=== PATIENT | female | born 1935 | race Caucasian/White ===

== ENCOUNTER 2017-04-16 11:07 | Inpatient (IN) | payer MEDICARE, OTHER ==
[~2017-04-16] VITALS: Ht 142.2 cm; Wt 59.3 kg
[~2017-04-16 11:07] MED LIST: ATELVIA; ERGO50007 PO; MELO-110 PO; OMEP20CA16 PO; SMV40T PO; apap/codeine
[2017-04-16] MEDS ORDERED: SOD CHLORIDE 0.9% 500 ML IV STA (11:15)
[2017-04-16] MEDS ORDERED: morphine 2 MG INJ IV ONE (11:30)
[2017-04-16] MEDS ORDERED: ONDANSETRON 4 MG INJ IV ONE (11:30)
--- NOTE | 2017-04-16 11:40 | ERA ---
ER Documentation Chief Complaint Date/Time DATE: 04/16/17 TIME: 11:37 Chief Complaint LEFT HIP PAIN FROM A GROUND LEVEL FALL WITH NO OBVIOUS DEFORMITY . HPI 81-year-old female, extremely pleasant who presents with left hip pain status post ground-level fall just prior to arrival. She states that she was trying to get around another individual and tripped on uneven pavement. She fell onto her left hip. She describes left hip and groin pain that is moderate, throbbing , worse with any movement of her lower extremity. She denies any head trauma or loss of consciousness, no neck pain. She denies any prodrome of chest pain or shortness of breath. Pain is described as moderate currently. ROS All systems reviewed and are negative except as per history of present illness. Medications Home Meds Reported Medications Esomeprazole Mag Trihydrate (Nexium) 40 Mg Capsule.dr, 40 MG PO DAILY, #30 CAP 04/16/17 Cyclosporine (RESTASIS) 1 Each Droperette, 1 DROP BOTH EYES Q12, #1 BOX 04/16/17 Risedronate* (Actonel*) 35 Mg Tablet, 35 MG PO Q7D, #4 TAB 04/16/17 Metoprolol Tartrate* (Lopressor*) 50 Mg Tab, 50 MG PO DAILY Y for ELEVATED BLOOD PRESSURE, #60 TAB 04/16/17 Ergocalciferol (Vitamin D) 50,000 Unit Capsule, 18885 UNIT PO weekly 07/01/12 Simvastatin (Simvastatin) 40 Mg Tablet, 40 MG PO DAILY 07/01/12 Discontinued Reported Medications [atelvia] No Conflict Check, 35 MG weekly 07/01/12 Meloxicam* (Mobic*) 15 Mg Tablet, 15 MG PO DAILY 07/01/12 [apap/codeine] No Conflict Check, 300 300/30 q 8hr prn 07/01/12 Omeprazole* (Omeprazole*) 20 Mg Capsule.dr, 40 MG PO DAILY 07/01/12 Allergies Allergies: Coded Allergies: No Known Allergy (Unverified , 04/16/17) PMhx/Soc History of Surgery: No Anesthesia Reaction: No Hx Neurological Disorder: No Hx Respiratory Disorders: No Hx Cardiac Disorders: No Hx Psychiatric Problems: No Hx Miscellaneous Medical Probl: No Hx Alcohol Use: No Hx Substance Use: No Hx Tobacco Use: No FmHx Family History: No diabetes Physical Exam Vitals Vital Signs Date Time Temp Pulse Resp B/P Pulse Ox O2 Delivery O2 Flow Rate FiO2 04/16/17 11:53 81 18 135/94 96 Room Air 04/16/17 11:15 98.1 81 20 134/91 98 Physical Exam Airway is intact Bilateral breath sounds Strong distal pulses No obvious deficits General: Well developed, well nourished, no acute distress Head: Normocephalic, atraumatic Eyes: Pupils equally reactive, EOM intact ENT: Moist mucous membranes Neck: Supple, no lymphadenopathy, No midline tenderness, deformities, step-offs to the cervical spine, full active and passive range of motion without midline pain. Respiratory: Lungs clear bilaterally, no distress, no chest wall tenderness, no crepitus Cardiovascular: RRR, no murmurs, rubs, or gallops Abdominal: Soft, non-tender, non-distended, no peritoneal signs, pelvis is stable : Deferred MSK: No edema, no unilateral swelling, 5/5 strength, no midline tenderness deformities or step-offs to the thoracolumbar spine. The patient has soft tissue tenderness along the left hip, she is holding the hip in slight flexion and has pain with internal and external rotation. 2+ dorsalis pedis and posterior tibial pulses. Neurologic: Alert and oriented, moving all extremities, normal speech, no focal weakness, no cerebellar signs Skin: No ecchymoses or bruising to the chest or abdomen Psych: Normal mood Result Diagram: 04/16/17 1120 04/16/17 1120 Results 24 hrs Laboratory Tests Test 04/16/17 11:20 White Blood Count 8.110^3/ul Red Blood Count 3.5510^6/ul Hemoglobin 11.5g/dl Hematocrit 33.4% Mean Corpuscular Volume 94.1fl Mean Corpuscular Hemoglobin 32.4pg Mean Corpuscular Hemoglobin Concent 34.4g/dl Red Cell Distribution Width 15.7% Platelet Count 47056^3/UL Mean Platelet Volume 11.3fl Neutrophils % 67.6% Lymphocytes % 22.4% Monocytes % 5.9% Eosinophils % 2.1% Basophils % 0.6% Nucleated Red Blood Cells % 0.0/100WBC Neutrophils # 5.510^3/ul Lymphocytes # 1.810^3/ul Monocytes # 0.510^3/ul Eosinophils # 0.210^3/ul Basophils # 0.110^3/ul Nucleated Red Blood Cells # 0.010^3/ul Prothrombin Time 13.3Sec Prothrombin Time Ratio 1.0 INR International Normalized Ratio 1.01 Activated Partial Thromboplast Time 30.1Sec Sodium Level 145mmol/L Potassium Level 3.6mmol/L Chloride Level 104mmol/L Carbon Dioxide Level 25mmol/L Anion Gap 20 Blood Urea Nitrogen 15mg/dl Creatinine 0.65mg/dl Glucose Level 116mg/dl Calcium Level 9.5mg/dl Current Medications Medications (Trade) Dose Ordered Sig/Juan Carlos Route PRN Reason Start Time Stop Time Status Last Admin Dose Admin Sodium Chloride (NS) 500 ml @ 500 mls/hr Q1H STAT IV 04/16/17 11:15 04/16/17 12:14 DC 04/16/17 11:47 Morphine Sulfate (morphine) 2 mg ONCE ONCE IV 04/16/17 11:30 04/16/17 11:31 DC 04/16/17 11:47 Ondansetron HCl (Zofran Inj) 4 mg ONCE ONCE IV 04/16/17 11:30 04/16/17 11:31 DC 04/16/17 11:47 Procedures/MDM EKG, MONITORS, & DIAGNOSTIC IMAGING: EKG: I reviewed and interpreted a 12-lead EKG. Rhythm: Normal sinus rhythm Ectopy: None Intervals: No abnormalities ST segments: No elevations or depressions T waves: No contiguous inversions Chest x-ray: I reviewed and interpreted a 1 view of the chest Mediastinum: No enlargement Cardiac silhouette: No cardiomegaly Airspace: Clear lung frye bilaterally without evidence of pneumothorax Bones: No evidence of fracture X-ray pelvis: X-ray pelvis: I reviewed and interpreted 1 view of the pelvis, there is evidence of a left femoral neck fracture, no pelvic ring fractures, no foreign bodies. X-ray left hip: I reviewed and interpreted multiple views of the x-ray Bones: Comminuted left femoral neck fracture Soft tissue: No evidence of foreign body LAB INTERPRETATION: No acute process MEDICAL DECISION MAKING: The patient has pain to the left hip after blunt trauma. Given her exam with pain with internal and external rotation there is a strong concern for closed left hip fracture. She did not hit her head or lose consciousness, she gives a good history, no neck pain. The patient does not meet high-risk criteria and based on NEXUS cervical spine criteria there is no indication for cervical spine imaging at this time. No indication for CT imaging of the head. She did not have a prodrome of chest pain or shortness of breath, low concern for arrhythmia, PE etc. The patient will benefit from auditory testing, pain control, diagnostic imaging and low threshold for hospitalization. ER COURSE: The patient was given pain medication. X-ray imaging confirms closed left femoral neck fracture. Patient will require hospitalization, pain control and orthopedic surgery consultation. Orthopedic surgeon notified. I kept the patient and/or family informed of laboratory and diagnostic imaging results throughout the emergency room course. DISPOSITION PLAN: Medical surgical admission for management of close left femoral neck fracture CONSULTATION: Accepting care team and consultations: I discussed the current laboratory data, diagnostic imaging and emergency care provided. Admitting team: Dr. Mcrae Admitting team indication: Insurance directed Consulting services: Dr. Gonsalez, orthopedic surgeon Departure Diagnosis: Primary Impression: Closed fracture of neck of left femur Qualified Code: S72.002A - Closed fracture of neck of left femur, initial encounter Condition: Stable ARCADIO CARLOS MD Apr 16, 2017 11:40
[2017-04-16 11:43] LABS: BASOPHIL # 0.1 10^3/ul (0.0-0.1); BASOPHILS % 0.6 % (0.0-2.0); EOSINOPHILS # 0.2 10^3/ul (0.0-0.5); EOSINOPHILS % 2.1 % (0.0-7.0); HEMATOCRIT 33.4 % (37.0-47.0); HEMOGLOBIN 11.5 g/dl (12.0-16.0); LYMPHOCYTES # 1.8 10^3/ul (0.8-2.9); LYMPHOCYTES % 22.4 % (15.0-51.0); MEAN CORPUSCULAR HEMOGLOBIN 32.4 pg (29.0-33.0); MEAN CORPUSCULAR HGB CONC 34.4 g/dl (32.0-37.0); MEAN CORPUSCULAR VOLUME 94.1 fl (82.0-101.0); MEAN PLATELET VOLUME 11.3 fl (7.4-10.4); MONOCYTE # 0.5 10^3/ul (0.3-0.9); MONOCYTES % 5.9 % (0.0-11.0); NEUTROPHIL # 5.5 10^3/ul (1.6-7.5); NEUTROPHILS % 67.6 % (39.0-77.0); PLATELET COUNT 404 10^3/UL (140-415); RED BLOOD COUNT 3.55 10^6/ul (4.20-5.40); RED CELL DISTRIBUTION WIDTH 15.7 % (11.5-14.5); WHITE BLOOD COUNT 8.1 10^3/ul (4.8-10.8)
[2017-04-16 11:51] LABS: INR 1.01; PROTIME 13.3 Sec (12.2-14.2)
[2017-04-16 11:52] LABS: PARTIAL THROMBOPLASTIN TIME 30.1 Sec (25.0-35.0)
[2017-04-16 11:57] LABS: CALCIUM 9.5 mg/dl (8.4-10.2); CREATININE 0.65 mg/dl (0.44-1.00); POTASSIUM 3.6 mmol/L (3.5-5.1)
[2017-04-16] MEDS ORDERED: METO-429 PO (12:13)
[2017-04-16 12:14] LABS: ADD SCAN DIFF NO
[2017-04-16] MEDS ORDERED: CYCL1DRO BOTH EYES (12:14)
[2017-04-16] MEDS ORDERED: ACT35 PO (12:14)
--- NOTE | 2017-04-16 12:16 | RADRPT ---
PROCEDURE: XR Chest. CLINICAL INDICATION: Trauma, pain. TECHNIQUE: Single frontal chest x-ray. COMPARISON: None available. FINDINGS: The cardiomediastinal silhouette is unremarkable. Aortic atherosclerotic vascular calcifications are identified. No pneumothorax, pleural effusion or consolidation is seen. There are multilevel degenerative changes of thoracic spine with decreased disk spaces and osteophyt osis. IMPRESSION: 1. No acute cardiopulmonary abnormality. 2. Aortic atherosclerosis. RPTAT: HFN .Nathan Locke MD, Date Time Electronically viewed and signed by .Nathan Locke MD, on 04/16/2017 12:16 .N/
--- NOTE | 2017-04-16 12:18 | RADRPT ---
PROCEDURE: XR Pelvis. CLINICAL INDICATION: Pain. Trauma. TECHNIQUE: Single AP view of the pelvis. COMPARISON: No prior studies are available for comparison. FINDINGS: Acute displaced fracture of left neck of femur is noted. No radiopaque foreign body is identified. The osseous mineralization is normal. The sacroiliac joints, as visualized, are grossly unremarkable . Mild degenerative changes of bilateral hip joints. IMPRESSION: 1. Acute displaced fracture of left neck of femur. 2. Mild degenerative changes of bilateral hip joints. RPTAT: QQ .Nathan Locke MD, MD Date Time Electronically viewed and signed by .Nathan Locke MD, on 04/16/2017 12:18 .N/
--- NOTE | 2017-04-16 12:20 | RADRPT ---
PROCEDURE: XR Hip. CLINICAL INDICATION: Left hip pain TECHNIQUE: AP and frog lateral views of the left hip were performed. COMPARISON: None. FINDINGS: Acute moderately displaced fracture of left neck of femur is noted with superior displacement of the distal fracture fragment with overlying surrounding soft tissue swelling. No radiopaque foreign licha dy is identified. IMPRESSION: 1. Acute moderately displaced fracture of left neck of femur with overlying surrounding soft tissue swelling. RPTAT: QQ .Nathan Locke MD, MD Date Time Electronically viewed and signed by .Nathan Locke MD, on 04/16/2017 12:20 .N/
[2017-04-16] MEDS ORDERED: ESOM40CA PO (12:23)
[2017-04-16] MEDS ORDERED: ONDANSETRON 4 MG INJ IV PRN ×2 (13:00→18:00)
[2017-04-16] MEDS ORDERED: ACETAMINOPHEN 325 MG TAB PO PRN (13:00)
[2017-04-16 16:31] VITALS: TEMP 98.5
[2017-04-16] MEDS ORDERED: DOCUSATE SODIUM 100 MG CAP PO PRN (18:00)
--- NOTE | 2017-04-16 18:09 | HP ---
Date/Time of Note Date/Time of Note DATE: 04/16/17 TIME: 17:51 Assessment/Plan VTE Prophylaxis VTE Prophylaxis Intervention: LMWH Assessment/Plan Assessment/Plan 81 yo F s/p accidental ground level fall with 1. Acute L Hip fracture 2. Chronic HTN: fairly good control 3. Osteoporosis 4. Dyslipidemia 5. GERD PLAN: admit / pain control / supportive care / Bedrest Spoke with also, Dr. Gonsalez plans to do surgery to left hip tomorrow. He wants patient cleared for surgery for possible by then. Cardiology consult for cardiac clearance based on patient's age and chronic morbidities; will also order 2D echo and ACS rule out. Continue all other home meds PPI and Lovenox for prophylaxis Further interventions per clinical course HPI/ROS Admit Date/Time Admit Date/Time Apr 16, 2017 at 12:42 Hx of Present Illness This 89-year-old female who sustained a ground-level fall without loss of consciousness or dizziness and fell onto her left hip. She came to the ER brought in by ambulance complaining of left hip pain she was found to have a left hip fracture on x-ray. She is being admitted for further management. She denies chest pain, denies palpitations prior to fall. Denies headaches, vision changes, extremity weakness. Denies fever dysuria or hematuria. ROS 12 point review if systems was done and pertinent findings are as noted. PMH/Family/Social Past Medical History 1. Osteoporosis on Actonel 2. High blood pressure 3. Dyslipidemia 4. GERD Social History Smoking Status: Never smoker Exam/Review of Systems Vital Signs Vitals Vital Signs Date Time Temp Pulse Resp B/P Pulse Ox O2 Delivery O2 Flow Rate FiO2 04/16/17 16:31 98.5 84 16 148/62 99 Room Air Exam Exam Constitutional: alert, oriented Head: atraumatic, normocephalic Neck: non-tender, supple Respiratory: clear to auscultation Cardiovascular: regular rate and rhythm Gastrointestinal: nl liver, spleen, non-tender, soft Extremities: normal pulses, No edema, no unilateral swelling, Tender L hip Labs Result Diagram: 04/16/17 1120 04/16/17 1120 Procedures Procedures Laboratory Tests Test 04/16/17 11:20 White Blood Count 8.110^3/ul Red Blood Count 3.5510^6/ul Hemoglobin 11.5g/dl Hematocrit 33.4% Mean Corpuscular Volume 94.1fl Mean Corpuscular Hemoglobin 32.4pg Mean Corpuscular Hemoglobin Concent 34.4g/dl Red Cell Distribution Width 15.7% Platelet Count 69697^3/UL Mean Platelet Volume 11.3fl Neutrophils % 67.6% Lymphocytes % 22.4% Monocytes % 5.9% Eosinophils % 2.1% Basophils % 0.6% Nucleated Red Blood Cells % 0.0/100WBC Neutrophils # 5.510^3/ul Lymphocytes # 1.810^3/ul Monocytes # 0.510^3/ul Eosinophils # 0.210^3/ul Basophils # 0.110^3/ul Nucleated Red Blood Cells # 0.010^3/ul Prothrombin Time 13.3Sec Prothrombin Time Ratio 1.0 INR International Normalized Ratio 1.01 Activated Partial Thromboplast Time 30.1Sec Sodium Level 145mmol/L Potassium Level 3.6mmol/L Chloride Level 104mmol/L Carbon Dioxide Level 25mmol/L Anion Gap 20 Blood Urea Nitrogen 15mg/dl Creatinine 0.65mg/dl Glucose Level 116mg/dl Calcium Level 9.5mg/dl Current Medications Medications (Trade) Dose Ordered Sig/Juan Carlos Route PRN Reason Start Time Stop Time Status Last Admin Dose Admin Sodium Chloride (NS) 500 ml @ 500 mls/hr Q1H STAT IV 04/16/17 11:15 04/16/17 12:14 DC 04/16/17 11:47 500 MLS/HR Morphine Sulfate (morphine) 2 mg ONCE ONCE IV 04/16/17 11:30 04/16/17 11:31 DC 04/16/17 11:47 2 MG Ondansetron HCl (Zofran Inj) 4 mg ONCE ONCE IV 04/16/17 11:30 04/16/17 11:31 DC 04/16/17 11:47 4 MG Ondansetron HCl (Zofran Inj) 4 mg BRIDGE ORDER PRN IV NAUSEA AND/OR VOMITING 04/16/17 13:00 04/17/17 12:59 Acetaminophen (Tylenol Tab) 650 mg ER BRIDGE PRN PO MILD PAIN/FEVER 04/16/17 13:00 04/17/17 12:59 PROCEDURE: XR Chest. CLINICAL INDICATION: Trauma, pain. TECHNIQUE: Single frontal chest x-ray. COMPARISON: None available. FINDINGS: The cardiomediastinal silhouette is unremarkable. Aortic atherosclerotic vascular calcifications are identified. No pneumothorax, pleural effusion or consolidation is seen. There are multilevel degenerative changes of thoracic spine with decreased disk spaces and osteophytosis. IMPRESSION: 1. No acute cardiopulmonary abnormality. 2. Aortic atherosclerosis. RPTAT: HFN .Nathan Locke MD, MD Date Time Electronically viewed and signed by .Nathan Locke MD, MD on 04/16/2017 12: 16 .N/ CC: ARCADIO CARLOS MD PROCEDURE: XR Hip. CLINICAL INDICATION: Left hip pain TECHNIQUE: AP and frog lateral views of the left hip were performed. COMPARISON: None. FINDINGS: Acute moderately displaced fracture of left neck of femur is noted with superior displacement of the distal fracture fragment with overlying surrounding soft tissue swelling. No radiopaque foreign body is identified. IMPRESSION: 1. Acute moderately displaced fracture of left neck of femur with overlying surrounding soft tissue swelling. RPTAT: QQ .Nathan Locke MD, MD Date Time Electronically viewed and signed by .Nathan Locke MD, MD on 04/16/2017 12: 20 .N/ CC: ARCADIO CARLOS MD PROCEDURE: XR Pelvis. CLINICAL INDICATION: Pain. Trauma. TECHNIQUE: Single AP view of the pelvis. COMPARISON: No prior studies are available for comparison. FINDINGS: Acute displaced fracture of left neck of femur is noted. No radiopaque foreign body is identified. The osseous mineralization is normal. The sacroiliac joints , as visualized, are grossly unremarkable. Mild degenerative changes of bilateral hip joints. IMPRESSION: 1. Acute displaced fracture of left neck of femur. 2. Mild degenerative changes of bilateral hip joints. RPTAT: QQ .Nathan Locke MD, MD Date Time Electronically viewed and signed by .Nathan Locke MD, MD on 04/16/2017 12: 18 .N/ CC: ARCADIO CARLOS MD ABE, BOLATITO M. Jun 30, 2017 18:01
[2017-04-16 19:20] VITALS: BP 126/60; RESP 18
[2017-04-16 20:00] VITALS: BP 141/87; PULSE 78; RESP 18
[2017-04-16] MEDS: morphine 2 MG INJ IV PRN (20:33)
[2017-04-16] MEDS: ATORVASTATIN 20 MG TAB PO SCH (22:03)
[2017-04-16] MEDS: CYCLOSPORINE 0.05% OPH DROPERETTE BOTH EYES SCH (22:04)
[2017-04-16] MEDS: ENOXAPARIN 40 MG/0.4 ML SYG SC SCH (22:05)
[2017-04-17 00:06] LABS: CK-MB 1.18 ng/ml (0.0-2.4); TROPONIN-I 0.035 ng/ml (0.00-0.12)
[2017-04-17 02:06] VITALS: BP 113/55; PULSE 71; RESP 16
[2017-04-17 02:07] VITALS: Ht 142.2 cm; Wt 59.3 kg
[2017-04-17] MEDS: HYDROCODONE/APAP (5/325) TAB PO PRN ×3 (02:15→22:00)
[2017-04-17] MEDS: SOD CHLORIDE 0.9% 1,000 ML IV SCH (03:02)
[2017-04-17 05:09] LABS: BASOPHIL # 0.1 10^3/ul (0.0-0.1); BASOPHILS % 0.6 % (0.0-2.0); EOSINOPHILS # 0.3 10^3/ul (0.0-0.5); HEMATOCRIT 30.4 % (37.0-47.0); HEMOGLOBIN 9.9 g/dl (12.0-16.0); LYMPHOCYTES # 1.5 10^3/ul (0.8-2.9); LYMPHOCYTES % 17.8 % (15.0-51.0); MEAN CORPUSCULAR HEMOGLOBIN 30.9 pg (29.0-33.0); MEAN CORPUSCULAR HGB CONC 32.6 g/dl (32.0-37.0); MEAN PLATELET VOLUME 11.1 fl (7.4-10.4); MONOCYTE # 0.9 10^3/ul (0.3-0.9); MONOCYTES % 10.9 % (0.0-11.0); NEUTROPHIL # 5.7 10^3/ul (1.6-7.5); NEUTROPHILS % 67.1 % (39.0-77.0); PLATELET COUNT 302 10^3/UL (140-415); RED CELL DISTRIBUTION WIDTH 15.9 % (11.5-14.5); WHITE BLOOD COUNT 8.4 10^3/ul (4.8-10.8)
[2017-04-17 05:17] LABS: ADD SCAN DIFF NO
[2017-04-17 05:27] LABS: INR 1.23; PROTIME 15.6 Sec (12.2-14.2); PT RATIO 1.2
[2017-04-17 05:28] LABS: PARTIAL THROMBOPLASTIN TIME 42.1 Sec (25.0-35.0)
[2017-04-17 05:32] LABS: ALBUMIN 3.4 g/dl (3.3-4.9); BILIRUBIN,INDIRECT 0.6 mg/dl (0-1.1); BILIRUBIN,TOTAL 0.6 mg/dl (0.2-1.3); CALCIUM 8.9 mg/dl (8.4-10.2); CHOL/HDL RATIO 4.7 RATIO; CREATININE 0.66 mg/dl (0.44-1.00); MAGNESIUM 1.9 mg/dl (1.7-2.5); POTASSIUM 3.7 mmol/L (3.5-5.1); TOTAL PROTEIN 4.9 g/dl (6.1-8.1)
[2017-04-17] MEDS: PANTOPRAZOLE (EC) 40 MG TAB PO SCH ×2 (05:37→09:26)
[2017-04-17 05:41] LABS: CK-MB 0.92 ng/ml (0.0-2.4); TROPONIN-I 0.024 ng/ml (0.00-0.12)
[2017-04-17 05:59] LABS: THYROID STIMULATING HORMONE 4.37 MIU/L (0.465-4.680)
[2017-04-17] MEDS: morphine 2 MG INJ IV PRN (06:18)
[2017-04-17 08:03] VITALS: BP 115/86; RESP 20
[2017-04-17] MEDS: POLYETHYLENE GLYCOL 17 GM PACKET PO SCH (09:00)
[2017-04-17] MEDS: CYCLOSPORINE 0.05% OPH DROPERETTE BOTH EYES SCH ×2 (09:24→20:05)
[2017-04-17] MEDS: METOPROLOL 25 MG TAB PO SCH (09:25)
[2017-04-17] MEDS: ENOXAPARIN 40 MG/0.4 ML SYG SC SCH (09:34)
--- NOTE | 2017-04-17 10:00 | PN ---
Date/Time of Note Date/Time of Note DATE: 04/17/17 TIME: 09:57 Assessment/Plan VTE Prophylaxis VTE Prophylaxis Intervention: LMWH Lines/Catheters IV Catheter Type (from Nrsg): Peripheral IV Urinary Cath still in place: Yes Reason Cath still needed: other (indicate) Assessment/Plan Assessment/Plan 81 yo F s/p accidental ground level fall with 1. Acute L Hip fracture 2. Chronic HTN: fairly good control 3. Osteoporosis 4. Dyslipidemia 5. GERD 6. Hgb A1C 13: With normal blood sugars / ?error, will repeat PLAN: Continue pain control / supportive care / Bedrest Patient wants a different Orthopedic surgeon than Dr Gonsalez, Spoke with nursing supervisor heading, we will try to get Dr Landrum I explained to patient that finding a different doctor may delay surgery, she verbalized understanding Cardiology consult for cardiac clearance based on patient's age and chronic morbidities still pending Continue all other home meds PPI and Lovenox for prophylaxis Further interventions per clinical course Subjective 24 Hr Interval Summary Free Text/Dictation Patient seen and examined. still in pain L hip Exam/Review of Systems Vital Signs Vitals Vital Signs Date Time Temp Pulse Resp B/P Pulse Ox O2 Delivery O2 Flow Rate FiO2 04/17/17 08:03 98.1 78 20 115/86 94 04/17/17 02:06 Room Air Intake and Output 04/16/17 04/16/17 04/17/17 15:00 23:00 07:00 Intake Total 140 ml Balance 140 ml Exam Constitutional: alert, oriented, obese Head: atraumatic, normocephalic Neck: non-tender, supple Respiratory: clear to auscultation Cardiovascular: regular rate and rhythm Gastrointestinal: nl liver, spleen, non-tender, soft Extremities: normal pulses, No edema, no unilateral swelling, Tender L hip Results Result Diagram: 04/17/17 0450 04/17/17 0450 Results 24 hrs Laboratory Tests Test 04/16/17 11:20 04/16/17 23:10 04/17/17 04:50 White Blood Count 8.1 8.4 Red Blood Count 3.55 L 3.20 L Hemoglobin 11.5 L 9.9 L Hematocrit 33.4 L 30.4 L Mean Corpuscular Volume 94.1 95.0 Mean Corpuscular Hemoglobin 32.4 30.9 Mean Corpuscular Hemoglobin Concent 34.4 32.6 Red Cell Distribution Width 15.7 H 15.9 H Platelet Count 404 302 # Mean Platelet Volume 11.3 H 11.1 H Neutrophils % 67.6 67.1 Lymphocytes % 22.4 17.8 Monocytes % 5.9 10.9 Eosinophils % 2.1 3.0 Basophils % 0.6 0.6 Nucleated Red Blood Cells % 0.0 0.0 Neutrophils # 5.5 5.7 Lymphocytes # 1.8 1.5 Monocytes # 0.5 0.9 Eosinophils # 0.2 0.3 Basophils # 0.1 0.1 Nucleated Red Blood Cells # 0.0 0.0 Prothrombin Time 13.3 15.6 H Prothrombin Time Ratio 1.0 1.2 INR International Normalized Ratio 1.01 1.23 Activated Partial Thromboplast Time 30.1 42.1 H Sodium Level 145 H 143 Potassium Level 3.6 3.7 Chloride Level 104 107 Carbon Dioxide Level 25 26 Anion Gap 20 H 14 Blood Urea Nitrogen 15 15 Creatinine 0.65 0.66 Glucose Level 116 101 Calcium Level 9.5 8.9 Creatine Kinase 66 51 Creatine Kinase Index 1.8 1.8 Creatinine Kinase MB (Mass) 1.18 0.92 Troponin I 0.035 0.024 Hemoglobin A1c 13.7 H Magnesium Level 1.9 Total Bilirubin 0.6 Direct Bilirubin 0.00 Indirect Bilirubin 0.6 Aspartate Amino Transf (AST/SGOT) 14 L Alanine Aminotransferase (ALT/SGPT) 22 Alkaline Phosphatase 47 Total Protein 4.9 L Albumin 3.4 Triglycerides Level 112 Cholesterol Level 134 LDL Cholesterol, Calculated 84 HDL Cholesterol 28 L Cholesterol/HDL Ratio 4.7 Thyroid Stimulating Hormone (TSH) 4.370 Medications Medications Current Medications Cyclosporine (Restasis) 1 drop Q12 BOTH EYES Last administered on 04/17/17 09: 24; Admin Dose 1 DROP; Start 04/16/17 at 21:00 Ergocalciferol (Drisdol) 50,000 unit Q7D PO ; Start 04/18/17 at 09:00 Metoprolol Tartrate (Lopressor) 25 mg DAILY PO Last administered on 04/17/17 09 :25; Admin Dose 25 MG; Start 04/17/17 at 09:00 Risedronate (Actonel) 35 mg Q7D PO ; Start 04/23/17 at 06:00 Pantoprazole (Protonix Tab) 40 mg DAILY@06 PO Last administered on 04/17/17 09: 26; Admin Dose 40 MG; Start 04/17/17 at 06:00 Atorvastatin Calcium (Lipitor) 20 mg DAILY@21 PO Last administered on 22:03; Admin Dose 20 MG; Start 04/16/17 at 21:00 Morphine Sulfate (morphine) 2 mg Q4H PRN IV pain Last administered on 04/17/17 06:18; Admin Dose 2 MG; Start 04/16/17 at 18:00 Ondansetron HCl (Zofran Inj) 4 mg Q6H PRN IV NAUSEA AND/OR VOMITING; Start at 18:00 Acetaminophen/ Hydrocodone Bitart ([place] (5/325)) 1 tab Q6H PRN PO pain Last administered on 04/17/17 02:15; Admin Dose 1 TAB; Start 04/16/17 at 18:00 Docusate Sodium (Colace) 100 mg BID PRN PO CONSTIPATION; Start 04/16/17 at 18: 00 Polyethylene Glycol (Miralax) 8.5 gm DAILY PO ; Start 04/17/17 at 09:00 Enoxaparin Sodium 40 mg 40 mg DAILY SC Last administered on 04/17/17 09:34; Admin Dose 40 MG; Start 04/16/17 at 21:00 Sodium Chloride (NS) 1,000 ml @ 75 mls/hr [id number] IV Last administered on 03:02; Admin Dose 75 MLS/HR; Start 04/17/17 at 03:00 SHANNAN CAN Apr 17, 2017 10:00
--- NOTE | 2017-04-17 16:13 | CONS ---
Date/Time of Note Date/Time of Note DATE: 04/17/17 TIME: 16:08 Assessment/Plan Assessment/Plan Additional Assessment/Plan 1. Pre-op: 81 yo with HTN, RBBB - s/p mech fall - here for pre-op eval for hip fxr repair No hemodynamic instability - BP in goodr sylvia - not in CHF - OK to proceed with surgery without any further re-stratification as unrepaired hip fracture if untreated leads to very high morbidity and mortality. Discussed with family at bedside, agree to proceed. Will review ECHO and optimize pre-op therapy. 2. RBBB - likely chronic, negative troponios - will review ECHO 3. HTN - well Rx now ? incidental 4 GERD - PPI to folllow 5. Pain - con't pain rx as needed Consultation Date/Type/Reason Admit Date/Time Apr 16, 2017 at 12:42 Initial Consult Date 24 HR Interval Summary Free Text/Dictation Cardiology Consult CC: pre-op, RBBB 81 yo with HTN, RBBB - s/p mech fall - here for pre-op eval for hip fxr repair No hemodynamic instability - BP in goodr sylvia - not in CHF - OK to proceed with surgery without any further re-stratification as unrepaired hip fracture if untreated leads to very high morbidity and mortality. Discussed with family at bedside, agree to proceed. Will review ECHO and optimize pre-op therapy. PMH: HTN (mild), RBBB, GERD Soc: no EtOh, no tobacco use All: NKDA MEDS: reviewed Exam/Review of Systems Vital Signs Vitals Vital Signs Date Time Temp Pulse Resp B/P Pulse Ox O2 Delivery O2 Flow Rate FiO2 04/17/17 08:03 98.1 78 20 115/86 94 04/17/17 02:06 Room Air Intake and Output 04/16/17 04/16/17 04/17/17 15:00 23:00 07:00 Intake Total 140 ml Balance 140 ml Exam ROS: No fever, no chills, no nausea, no vomiting, no diarrhea/constipation No recent weight changes No chest pain, no PND, no orthopnea No dizziness, blurred vision No thirst, no heat or cold intolerance General: WN/WD/NAD, AOx 3 HEENT: Unicetric/atraumatic/EOMI (follow commands) NECK: JVD elevated, no thyromegaly Lymph: no lymphadenopathy HEART: regular with no S3, II/ systolic murmur at apex LUNGS: Coarse sounds ABD: soft, NT, ND, +BS : Intact Neuro: non focal SKIN: chronic changes EXT: trace edema Results Result Diagram: 04/17/17 0450 04/17/17 0450 Results 24 hrs Laboratory Tests Test 04/16/17 23:10 04/17/17 04:50 Creatine Kinase 66 51 Creatine Kinase Index 1.8 1.8 Creatinine Kinase MB (Mass) 1.18 0.92 Troponin I 0.035 0.024 White Blood Count 8.4 Red Blood Count 3.20 L Hemoglobin 9.9 L Hematocrit 30.4 L Mean Corpuscular Volume 95.0 Mean Corpuscular Hemoglobin 30.9 Mean Corpuscular Hemoglobin Concent 32.6 Red Cell Distribution Width 15.9 H Platelet Count 302 # Mean Platelet Volume 11.1 H Neutrophils % 67.1 Lymphocytes % 17.8 Monocytes % 10.9 Eosinophils % 3.0 Basophils % 0.6 Nucleated Red Blood Cells % 0.0 Neutrophils # 5.7 Lymphocytes # 1.5 Monocytes # 0.9 Eosinophils # 0.3 Basophils # 0.1 Nucleated Red Blood Cells # 0.0 Prothrombin Time 15.6 H Prothrombin Time Ratio 1.2 INR International Normalized Ratio 1.23 Activated Partial Thromboplast Time 42.1 H Sodium Level 143 Potassium Level 3.7 Chloride Level 107 Carbon Dioxide Level 26 Anion Gap 14 Blood Urea Nitrogen 15 Creatinine 0.66 Glucose Level 101 Hemoglobin A1c 5.4 Calcium Level 8.9 Magnesium Level 1.9 Total Bilirubin 0.6 Direct Bilirubin 0.00 Indirect Bilirubin 0.6 Aspartate Amino Transf (AST/SGOT) 14 L Alanine Aminotransferase (ALT/SGPT) 22 Alkaline Phosphatase 47 Total Protein 4.9 L Albumin 3.4 Triglycerides Level 112 Cholesterol Level 134 LDL Cholesterol, Calculated 84 HDL Cholesterol 28 L Cholesterol/HDL Ratio 4.7 Thyroid Stimulating Hormone (TSH) 4.370 Medications Medications Current Medications Cyclosporine (Restasis) 1 drop Q12 BOTH EYES Last administered on 04/17/17 09: 24; Admin Dose 1 DROP; Start 04/16/17 at 21:00 Ergocalciferol (Drisdol) 50,000 unit Q7D PO ; Start 04/18/17 at 09:00 Metoprolol Tartrate (Lopressor) 25 mg DAILY PO Last administered on 04/17/17 09 :25; Admin Dose 25 MG; Start 04/17/17 at 09:00 Risedronate (Actonel) 35 mg Q7D PO ; Start 04/23/17 at 06:00 Pantoprazole (Protonix Tab) 40 mg DAILY@06 PO Last administered on 04/17/17 09: 26; Admin Dose 40 MG; Start 04/17/17 at 06:00 Atorvastatin Calcium (Lipitor) 20 mg DAILY@21 PO Last administered on 22:03; Admin Dose 20 MG; Start 04/16/17 at 21:00 Morphine Sulfate (morphine) 2 mg Q4H PRN IV pain Last administered on 04/17/17 06:18; Admin Dose 2 MG; Start 04/16/17 at 18:00 Ondansetron HCl (Zofran Inj) 4 mg Q6H PRN IV NAUSEA AND/OR VOMITING; Start at 18:00 Acetaminophen/ Hydrocodone Bitart ([place] (5/325)) 1 tab Q6H PRN PO pain Last administered on 04/17/17 13:43; Admin Dose 1 TAB; Start 04/16/17 at 18:00 Docusate Sodium (Colace) 100 mg BID PRN PO CONSTIPATION; Start 04/16/17 at 18: 00 Polyethylene Glycol (Miralax) 8.5 gm DAILY PO ; Start 04/17/17 at 09:00 Enoxaparin Sodium 40 mg 40 mg DAILY SC Last administered on 04/17/17 09:34; Admin Dose 40 MG; Start 04/16/17 at 21:00 Sodium Chloride (NS) 1,000 ml @ 75 mls/hr [id number] IV Last administered on 03:02; Admin Dose 75 MLS/HR; Start 04/17/17 at 03:00 FARIDA MOREJON MD Apr 17, 2017 16:13
--- NOTE | 2017-04-17 17:57 | RADRPT ---
Echocardiogram Report Patient Name: TIFFANY GIL Gender: Female Date: 1935 Study Date: 17-Apr-2017 Recovery Room Rn: [facility] Location: [address] Ref. Physician: SHANNAN CAN Quality: Technically Difficult Study Procedures: Transthoracic echocardiogram with complete 2D, M-Mode, and doppler examination. Indications: Cardiac Clearance. 2D/M Mode Doppler Measurement Value Normal Ranges Measurement Value Normal Ranges LVIDd 2D 3.6 3.5 - 5.6 cm AV Peak Adam 1.9 m/sec LVIDs 2D 2.5 2.1 - 4.1 cm AV Peak PG 14.0 mmHg FS 2D 29.7 % LVOT Peak Adam 1.4 m/sec LVPWd 2D 1.3 0.6 - 1.1 cm LVOT Peak PG 7.0 mmHg IVSd 2D 1.3 0.6 - 1.1 cm MV E Peak Adam 1.0 m/sec IVS/LVPW 2D 1.0 MV A Peak Adam 0.7 m/sec AoR Diam 2D 2.9 2.0 - 3.7 cm MV E/A 1.3 LA/Ao 2D 1 0 - 1 MV Decel Time 243 msec EDV 2D 45.5 cm3 MV E/A 1.3 ESV 2D 15.8 cm3 TR Peak Adam 2.8 m/sec LA Dimen 2D 3.5 2.3 - 4.0 cm TR Peak PG 31.0 mmHg RVSP 34.0 mmHg Findings Left Ventricle: Normal left ventricular systolic function. Normal left ventricular cavity size. Mild concentric left ventricular hypertrophy. Ejection fraction is visually estimated at 65 %. Tissue Doppler/Mitral Doppler indices are within normal limits. Right Ventricle: Normal right ventricular size. Normal right ventricular systolic function. Left Atrium: The left atrium is normal in size. Right Atrium: The right atrium is normal in size. Mitral Valve: Mild mitral leaflet calcification. Mild mitral annular calcification. Trace mitral regurgitation. Aortic Valve: No significant aortic stenosis or insufficiency. Aortic cusps appear mildly calcified. Tricuspid Valve: Normal appearance of the tricuspid valve. Estimated peak PA systolic pressure 34 mmHg. There is mild tricuspid regurgitation. Pulmonic Valve: Pulmonic valve not well visualized. There is mild pulmonic regurgitation. Pericardium: Normal pericardium with no significant pericardial effusion. Aorta: Normal aortic root. IVC: Normal size and normal respiratory collapse consistent with normal right atrial pressure. Conclusions 1.Normal left ventricular systolic function. Normal left ventricular cavity size. Mild concentric left ventricular hypertrophy. Ejection fraction is visually estimated at 65 %. Tissue Doppler/Mitral Doppler indices are within normal limits. 2.Mild mitral leaflet calcification. Mild mitral annular calcification. Trace mitral regurgitation. 3.No significant aortic stenosis or insufficiency. Aortic cusps appear mildly calcified. 4.Normal appearance of the tricuspid valve. Estimated peak PA systolic pressure 34 mmHg. There is mild tricuspid regurgitation. Electronically Signed By: Lance Rene 17-Apr-2017 17:56:02 -0700 Patient Name: TIFFANY GIL Study Date: 17-Apr-2017 [id number]
[2017-04-17] MEDS ORDERED: CEFAZOLIN 1 GM INJ IV ONE (18:30)
[2017-04-17 19:36] VITALS: BP 125/58; RESP 16
[2017-04-17] MEDS: ATORVASTATIN 20 MG TAB PO SCH (20:05)
[2017-04-18] VITALS (30 sets, daily range): BP systolic 99–140; BP diastolic 37–65; PULSE 80–134; RESP 14–33
[2017-04-18] MEDS: SOD CHLORIDE 0.9% 1,000 ML IV SCH ×3 (03:35→21:22)
[2017-04-18 05:58] LABS: BASOPHIL # 0.1 10^3/ul (0.0-0.1); BASOPHILS % 0.6 % (0.0-2.0); EOSINOPHILS # 0.3 10^3/ul (0.0-0.5); EOSINOPHILS % 3.1 % (0.0-7.0); HEMATOCRIT 30.8 % (37.0-47.0); HEMOGLOBIN 10.2 g/dl (12.0-16.0); LYMPHOCYTES # 1.3 10^3/ul (0.8-2.9); MEAN CORPUSCULAR HEMOGLOBIN 31.7 pg (29.0-33.0); MEAN CORPUSCULAR HGB CONC 33.1 g/dl (32.0-37.0); MEAN CORPUSCULAR VOLUME 95.7 fl (82.0-101.0); MEAN PLATELET VOLUME 11.7 fl (7.4-10.4); MONOCYTES % 10.6 % (0.0-11.0); NEUTROPHIL # 6.5 10^3/ul (1.6-7.5); NEUTROPHILS % 71.3 % (39.0-77.0); PLATELET COUNT 304 10^3/UL (140-415); RED BLOOD COUNT 3.22 10^6/ul (4.20-5.40); RED CELL DISTRIBUTION WIDTH 15.9 % (11.5-14.5); WHITE BLOOD COUNT 9.1 10^3/ul (4.8-10.8)
[2017-04-18] MEDS ORDERED: CEFAZOLIN 1 GM/50 ML (PMX) 50 ML IVPB SCH (06:00)
[2017-04-18 06:45] LABS: ADD SCAN DIFF NO
[2017-04-18 06:53] LABS: CALCIUM 8.7 mg/dl (8.4-10.2); CREATININE 0.64 mg/dl (0.44-1.00); POTASSIUM 4.4 mmol/L (3.5-5.1)
[2017-04-18] MEDS ORDERED: CEFAZOLIN 1 GM INJ ONE ×3 (07:00→13:00)
[2017-04-18] MEDS: CYCLOSPORINE 0.05% OPH DROPERETTE BOTH EYES SCH (09:00)
[2017-04-18] MEDS: ENOXAPARIN 40 MG/0.4 ML SYG SC SCH (09:00)
[2017-04-18] MEDS: METOPROLOL 25 MG TAB PO SCH (09:00)
[2017-04-18] MEDS ORDERED: ERGOCALCIFEROL 50,000 UNIT CAP PO SCH (09:00)
[2017-04-18] MEDS: POLYETHYLENE GLYCOL 17 GM PACKET PO SCH (09:00)
--- NOTE | 2017-04-18 10:36 | PN ---
Date/Time of Note Date/Time of Note DATE: 04/18/17 TIME: 10:29 Assessment/Plan VTE Prophylaxis VTE Prophylaxis Intervention: LMWH Lines/Catheters IV [facility] (from [facility] Peripheral IV Urinary Cath still in place: Yes Reason Cath still needed: other (indicate) Assessment/Plan Assessment/Plan 81 yo F s/p accidental ground level fall with 1. Acute L Hip fracture 2. Chronic HTN: fairly good control 3. Osteoporosis 4. Dyslipidemia 5. GERD PLAN: To OR today for repair after multiple discussions with patient and her family, case management, orthopedic surgery, and patient's insurance company. I also spoke with nursing lock maintenance supervisor at [facility]. Continue all other home meds PPI and Lovenox for prophylaxis Further interventions per clinical course Subjective 24 Hr Interval Summary Free Text/Dictation More than 1-1/2 hours was spent in this patient's care today. Patient was scheduled for surgery to repair her hip today, however Dr. lara try to reschedule the surgery which made the patient's family concerned and upset prompting them to request a different orthopedic surgeon. I spoke with him extensively and explained limitations of getting his surgeon to them. They requested transfer to [facility], I also explained we will have to have to have an accepting physician. However Dr. Preciado came in to speak with the family and family their changed her mind and opted to go to surgery with Dr. Lara today. Exam/Review of Systems Vital Signs Vitals Vital Signs Date Time Temp Pulse Resp B/P Pulse Ox O2 Delivery O2 Flow Rate FiO2 04/18/17 07:38 98.1 66 17 136/63 94 04/17/17 02:06 Room Air Intake and Output 04/17/17 04/17/17 04/18/17 15:00 23:00 07:00 Intake Total 500 ml 1600 ml 1330 ml Output Total 750 ml 1200 ml Balance 500 ml 850 ml 130 ml Exam Constitutional: alert, oriented, obese Head: atraumatic, normocephalic Neck: non-tender, supple Respiratory: clear to auscultation Cardiovascular: regular rate and rhythm Gastrointestinal: nl liver, spleen, non-tender, soft Extremities: normal pulses, No edema, no unilateral swelling, Tender L hip Results Result Diagram: 04/18/17 0505 04/18/17 0505 Results 24 hrs Laboratory Tests Test 04/18/17 05:05 White Blood Count 9.1 Red Blood Count 3.22 L Hemoglobin 10.2 L Hematocrit 30.8 L Mean Corpuscular Volume 95.7 Mean Corpuscular Hemoglobin 31.7 Mean Corpuscular Hemoglobin Concent 33.1 Red Cell Distribution Width 15.9 H Platelet Count 304 Mean Platelet Volume 11.7 H Neutrophils % 71.3 Lymphocytes % 14.0 L Monocytes % 10.6 Eosinophils % 3.1 Basophils % 0.6 Nucleated Red Blood Cells % 0.0 Neutrophils # 6.5 Lymphocytes # 1.3 Monocytes # 1.0 H Eosinophils # 0.3 Basophils # 0.1 Nucleated Red Blood Cells # 0.0 Sodium Level 142 Potassium Level 4.4 Chloride Level 105 Carbon Dioxide Level 25 Anion Gap 16 Blood Urea Nitrogen 16 Creatinine 0.64 Glucose Level 103 Calcium Level 8.7 Medications Medications Current Medications Cyclosporine (Restasis) 1 drop Q12 BOTH EYES Last administered on 04/17/17 20: 05; Admin Dose 1 DROP; Start 04/16/17 at 21:00 Ergocalciferol (Drisdol) 50,000 unit Q7D PO ; Start 04/18/17 at 09:00 Metoprolol Tartrate (Lopressor) 25 mg DAILY PO Last administered on 04/17/17 09 :25; Admin Dose 25 MG; Start 04/17/17 at 09:00 Risedronate (Actonel) 35 mg Q7D PO ; Start 04/23/17 at 06:00 Pantoprazole (Protonix Tab) 40 mg DAILY@06 PO Last administered on 04/17/17 09: 26; Admin Dose 40 MG; Start 04/17/17 at 06:00 Atorvastatin Calcium (Lipitor) 20 mg DAILY@21 PO Last administered on 04/17/17 20:05; Admin Dose 20 MG; Start 04/16/17 at 21:00 Morphine Sulfate (morphine) 2 mg Q4H PRN IV pain Last administered on 04/17/17 06:18; Admin Dose 2 MG; Start 04/16/17 at 18:00 Ondansetron HCl (Zofran Inj) 4 mg Q6H PRN IV NAUSEA AND/OR VOMITING; Start at 18:00 Acetaminophen/ Hydrocodone Bitart ([place] (5/325)) 1 tab Q6H PRN PO pain Last administered on 04/17/17 22:00; Admin Dose 1 TAB; Start 04/16/17 at 18:00 Docusate Sodium (Colace) 100 mg BID PRN PO CONSTIPATION; Start 04/16/17 at 18: 00 Polyethylene Glycol (Miralax) 8.5 gm DAILY PO ; Start 04/17/17 at 09:00 Enoxaparin Sodium 40 mg 40 mg DAILY SC Last administered on 04/17/17 09:34; Admin Dose 40 MG; Start 04/16/17 at 21:00 Sodium Chloride 1,000 ml @ 75 mls/hr [id number] IV Last administered on 04/18/17 03:35; Admin Dose 75 MLS/HR; Start 04/17/17 at 03:00 Cefazolin Sodium (Ancef 1 Gm/50 ml (Pmx)) 50 ml @ 100 mls/hr OC IVPB ; Start at 06:00; Stop 04/18/17 at 22:22 SHANNAN CAN Apr 18, 2017 10:36
[2017-04-18] MEDS ORDERED: ETOMIDATE 20 MG INJ ONE (12:05)
[2017-04-18] MEDS ORDERED: morphine SULFATE/PF (10 MG/10 ML) INJ ONE (12:05)
[2017-04-18] MEDS ORDERED: METOCLOPRAMIDE 10 MG INJ ONE (12:05)
[2017-04-18] MEDS ORDERED: FENTAnyl 50 MCG/ML VIAL ONE (12:05)
[2017-04-18] MEDS ORDERED: ROCURONIUM 50 MG INJ ONE (12:05)
[2017-04-18] MEDS ORDERED: MIDAZOLAM 1 MG/ML 2 ML INJ ONE (12:05)
[2017-04-18] MEDS ORDERED: EPHEDrine SULFATE 50 MG/5 ML SYG ONE (12:48)
[2017-04-18] MEDS ORDERED: POLYMYXIN/BACITRACIN 1L IRRIG ONE (13:03)
[2017-04-18] MEDS ORDERED: DIPHENHYDRAMINE 50 MG INJ IV PRN (13:30)
[2017-04-18] MEDS ORDERED: HYDROmorphONE (0.2 MG/ML) 10ML SYG IV PRN ×3 (13:30)
[2017-04-18] MEDS ORDERED: HYDROmorphONE 1 MG/ML SYG IV PRN ×3 (13:30)
[2017-04-18] MEDS ORDERED: EPHEDrine SULFATE 50 MG/5 ML SYG IV PRN (13:30)
[2017-04-18] MEDS ORDERED: LABETALOL HCL 20MG INJ IV PRN (13:30)
[2017-04-18] MEDS ORDERED: ONDANSETRON 4 MG INJ IV PRN ×2 (13:30)
[2017-04-18] MEDS ORDERED: hydrALAzine 20 MG INJ IV PRN (13:30)
[2017-04-18] MEDS ORDERED: MEPERIDINE 25 MG INJ IV PRN (13:30)
[2017-04-18] MEDS ORDERED: NALOXONE (0.4 MG/ML) INJ IV PRN (13:30)
[2017-04-18] MEDS ORDERED: METOCLOPRAMIDE 10 MG INJ IV PRN (13:30)
--- NOTE | 2017-04-18 13:40 | CONS ---
Date/Time of Note Date/Time of Note DATE: 04/18/17 TIME: 13:39 Assessment/Plan Assessment/Plan Additional Assessment/Plan Pt in surgery now - will follow post op Consultation Date/Type/Reason Admit Date/Time Apr 16, 2017 at 12:42 Exam/Review of Systems Vital Signs Vitals Vital Signs Date Time Temp Pulse Resp B/P Pulse Ox O2 Delivery O2 Flow Rate FiO2 04/18/17 07:38 98.1 66 17 136/63 94 04/17/17 02:06 Room Air Intake and Output 04/17/17 04/17/17 04/18/17 15:00 23:00 07:00 Intake Total 500 ml 1600 ml 1330 ml Output Total 750 ml 1200 ml Balance 500 ml 850 ml 130 ml Results Result Diagram: 04/18/17 0505 04/18/17 0505 Results 24 hrs Laboratory Tests Test 04/18/17 05:05 White Blood Count 9.1 Red Blood Count 3.22 L Hemoglobin 10.2 L Hematocrit 30.8 L Mean Corpuscular Volume 95.7 Mean Corpuscular Hemoglobin 31.7 Mean Corpuscular Hemoglobin Concent 33.1 Red Cell Distribution Width 15.9 H Platelet Count 304 Mean Platelet Volume 11.7 H Neutrophils % 71.3 Lymphocytes % 14.0 L Monocytes % 10.6 Eosinophils % 3.1 Basophils % 0.6 Nucleated Red Blood Cells % 0.0 Neutrophils # 6.5 Lymphocytes # 1.3 Monocytes # 1.0 H Eosinophils # 0.3 Basophils # 0.1 Nucleated Red Blood Cells # 0.0 Sodium Level 142 Potassium Level 4.4 Chloride Level 105 Carbon Dioxide Level 25 Anion Gap 16 Blood Urea Nitrogen 16 Creatinine 0.64 Glucose Level 103 Calcium Level 8.7 Medications Medications Current Medications Cyclosporine (Restasis) 1 drop Q12 BOTH EYES Last administered on 04/17/17 20: 05; Admin Dose 1 DROP; Start 04/16/17 at 21:00 Ergocalciferol (Drisdol) 50,000 unit Q7D PO ; Start 04/18/17 at 09:00 Metoprolol Tartrate (Lopressor) 25 mg DAILY PO Last administered on 04/17/17 09 :25; Admin Dose 25 MG; Start 04/17/17 at 09:00 Risedronate (Actonel) 35 mg Q7D PO ; Start 04/23/17 at 06:00 Pantoprazole (Protonix Tab) 40 mg DAILY@06 PO Last administered on 04/17/17 09: 26; Admin Dose 40 MG; Start 04/17/17 at 06:00 Atorvastatin Calcium (Lipitor) 20 mg DAILY@21 PO Last administered on 04/17/17 20:05; Admin Dose 20 MG; Start 04/16/17 at 21:00 Morphine Sulfate (morphine) 2 mg Q4H PRN IV pain Last administered on 04/17/17 06:18; Admin Dose 2 MG; Start 04/16/17 at 18:00 Ondansetron HCl (Zofran Inj) 4 mg Q6H PRN IV NAUSEA AND/OR VOMITING; Start at 18:00 Acetaminophen/ Hydrocodone Bitart ([place] (5/325)) 1 tab Q6H PRN PO pain Last administered on 04/17/17 22:00; Admin Dose 1 TAB; Start 04/16/17 at 18:00 Docusate Sodium (Colace) 100 mg BID PRN PO CONSTIPATION; Start 04/16/17 at 18: 00 Polyethylene Glycol (Miralax) 8.5 gm DAILY PO ; Start 04/17/17 at 09:00 Enoxaparin Sodium 40 mg 40 mg DAILY SC Last administered on 04/17/17 09:34; Admin Dose 40 MG; Start 04/16/17 at 21:00 Sodium Chloride 1,000 ml @ 75 mls/hr [id number] IV Last administered on 04/18/17 03:35; Admin Dose 75 MLS/HR; Start 04/17/17 at 03:00 Cefazolin Sodium (Ancef 1 Gm/50 ml (Pmx)) 50 ml @ 100 mls/hr OC IVPB ; Start at 06:00; Stop 04/18/17 at 22:22 Naloxone HCl (Narcan) 0.1 mg Q2M PRN IV FOR RESP RATE 8 OR LESS; Start 04/18/17 at 13:30; Stop 04/18/17 at 20:00 Hydromorphone HCl (Dilaudid) 0.6 mg Q3H PRN IV BREAKTHROUGH PAIN; Start at 13:30; Stop 04/21/17 at 13:29 Hydromorphone HCl (Dilaudid) 0.2 mg Q3H PRN IV PAIN LEVEL 1-5; Start 04/18/17 at 13:30; Stop 04/19/17 at 13:29 Hydromorphone HCl (Dilaudid) 0.4 mg Q3H PRN IV PAIN LEVEL 6-10; Start 04/18/17 at 13:30; Stop 04/18/17 at 20:00 Diphenhydramine HCl (Benadryl) 25 mg Q6H PRN IV ITCHING; Start 04/18/17 at 13:30 ; Stop 04/19/17 at 13:29 Ondansetron HCl (Zofran Inj) 4 mg Q6H PRN IV NAUSEA AND/OR VOMITING; Start 04/18 at 13:30; Stop 04/19/17 at 13:29 FARIDA MOREJON MD Apr 18, 2017 13:40
[2017-04-18] MEDS ORDERED: NEOSTIGMINE 3 MG/3 ML SYRINGE ONE (14:51)
[2017-04-18] MEDS ORDERED: GLYCOPYRROLATE 0.4 MG INJ ONE (14:51)
[2017-04-18] MEDS ORDERED: HYDROCODONE/APAP (5/325) TAB PO PRN (15:00)
[2017-04-18] MEDS ORDERED: traMADol 50 MG TAB PO PRN (15:00)
[2017-04-18] MEDS ORDERED: KETOROLAC 15 MG INJ IV PRN (15:00)
[2017-04-18] MEDS ORDERED: ESMOLOL 10 ML ONE (15:09)
[2017-04-18] MEDS: DIPHENHYDRAMINE 50 MG INJ IV PRN ×2 (15:10→16:07)
[2017-04-18] MEDS ORDERED: METOPROLOL 5 MG INJ ONE (15:18)
[2017-04-18] MEDS ORDERED: METOPROLOL 5 MG INJ IV ONE (15:30)
--- NOTE | 2017-04-18 15:32 | OPR ---
Date/Time of Note Date/Time of Note DATE: 04/18/17 TIME: 15:13 Operative Report Procedure Date: Apr 18, 2017 Preoperative Diagnosis Left femoral neck fracture Postoperative Diagnosis Left displaced femoral neck fracture Operation Performed 1. Left Hip Hemiarthroplasty, CPT 09390 2. Interpretation of intra-operative AP pelvis X-ray Surgeon: MERNA FRY MD Anesthesia: spinal Anesthesiologist: JOSE MAHAN MD Estimated Blood Loss: 50 - 100 ml's Specimens Femoral Head Grafts/Implants Cleary Nephew 45mm head, +0 Standard offset neck, Anthology Size 4 stem Complications: None Pt Condition Post Procedure: stable Disposition: PACU Indications The patient is an 81-year-old female who had a mechanical fall at home, causing a left femoral neck fracture. All risks, benefits, and potential complications of the procedure were then discussed including but not limited to DVT, PE, infection, damage to neurovascular structures including foot drop, leg length discrepancy, instability, dislocation, need for revision surgery, loosening of prosthesis, heart attack, stroke, and even . Patient understood the risks and informed consent was obtained. Operative\Procedure Findings Procedure Description PROCEDURE: The patient was met in the preoperative suite, and the correct operative site was confirmed and marked. She was then brought into the operative room. After this, the patient was transferred to the operating table and positioned. All bony prominences were well padded. She was positioned on a beanbag in the right lateral decubitus position with the left hip facing upwards. The left lower extremity was then sterilely prepped and draped in the normal fashion. Before starting a time out was taken to identify the correct operative site, and to confirm preoperative antibiotics consisting of 1 gram of IV Ancef were administered. A skin maker was then used to lio all bony prominences. Skin incision was then carried out extending from the greater trochanter in a curvilinear fashion posteriorly across the buttocks. A scalpel was used to incise the skin through to the subcutaneous tissues. A second #10 blade was then used to incise through the subcutaneous tissue down to the fascia katie. This was then incised utilizing Metzenbaum scissors. This was taken down to the bursa, which was removed. Utilizing a periosteal elevator as well as the sponge , the fat was then freed from the short external rotators of the left hip after these were placed and stretched. The sciatic nerve was then visualized. Bovie was used to remove the short external rotators from the greater trochanter, which revealed the joint capsule. The capsule was cleared and incised utilizing a T-shape incision. A fracture hematoma was noted upon entering the joint capsule as well as subcapital hip fracture. A cork screw was then used to remove the fractured femoral head, which was given to the scrubber operator which was sized on the back table to size 45mm. All bony remnants were then removed from the acetabulum and surrounding soft tissue with a rongeur. Acetabulum was then inspected and found to be clear. Attention was then turned to the proximal femur where a cutting tunnel was used to lio the femur for the femoral neck cut. An oscillating saw was then used to make the femoral cut one finger breath above the lesser trochanter. Box osteotome was then used to remove the bone from proximal femur. A Charnley awl was then used to open the femoral canal, paying close attention to keep the awl in the lateral position. Next, attention was turned to broaching. Initially, a small broach was placed, first making efforts to lateralize the broach then the femoral canal from a size 0 broach to a size 4 broach. Next, the trial components were inserted consisting of the above-mentioned component sizes. The hip was taken through range of motion and tested to adduction, internal and external rotations as well as with a shuck and a posterior directed force on a flexed tip. It was noted that these size were stable through the range of motion. AP pelvis x-ray was taken intra- operatively which demonstrated the implants were in correct position, and appropriately sized with equal leg length. Next, the trial components were removed and the femoral canal was copiously irrigated and suctioned dried. The appropriate sized final components were placed. The hip was subsequently reduced and taken again through range of motion, which was felt to be stable. Next, the capsule was closed utilizing #1 Ethibond in [id number] fashion. The piriformis and conjoint tendons were reapproximated to the back edge of the greater trochanter. Next, the fascia katie was repaired utilizing a figure-of- eight Ethibond sutures. The most proximal region at the musculotendinous junction was repaired utilizing a running #1 Vicryl suture. The wound was then copiously irrigated again to suction dry. Next, the subcutaneous tissues were reapproximated using #2-0 Vicryl simple interrupted sutures. The skin was then reapproximated utilizing skin clips. Sterile dressing was applied consisting of Adaptic, 4x4s, ABDs as well as foam tape. The patient was then transferred from the operating table to the [facility]. Leg lengths were checked, which were noted to be equal and abduction pillow was placed. The patient was then transferred to the Postoperative Care Unit in stable condition. Post-operative course: The patient will be weight bearing as tolerated. She will have bilateral SCD in hospital. She will receive aspirin 325mg BID for 6 weeks. She will work with physical therapy. She will receive 2 additional doses of IV ancef. She will receive pain medications. Upon discharge, she will follow up in my office within 2 weeks. MERNA FRY MD Apr 18, 2017 15:28
[2017-04-18] MEDS: CEFAZOLIN 1 GM/50 ML (PMX) 50 ML IVPB SCH ×2 (15:33→21:21)
--- NOTE | 2017-04-18 15:47 | CONS ---
Date/Time of Note Date/Time of Note DATE: 04/18/17 TIME: 15:34 Assessment/Plan Assessment/Plan Chief Complaint/Hosp Course Problems: Additional Assessment/Plan A: 81 year old female who had a mechanical fall with left closed displaced femoral neck fracture P: I discussed treatment options with the family and patient including left hip hemiarthroplasty. The risks to surgery were discussed including but not limited to infection, DVT, PE, damage to neurovascular structure including the sciatic nerve, foot drop, fracture, dislocation, instability, loosening of prosthesis, need for revision surgery, heart attack, stroke, risk of anesthesia, need for blood transfusion, and even . Informed consent was obtained. All questions were answered. I also explained to the family and the patient that there is up to a 35% chance of 1 year mortality. The plan is to perform a left hip hemiarthroplasty pending medical clearance and optimization. Consultation Date/Type/Reason Admit Date/Time Apr 16, 2017 at 12:42 Date of Consultation: Apr 17, 2017 Reason for Consultation Left hip pain Hx of Present Illness This is an 81 year old female community ambulator who fell from ground level. She does not use any assistive devices. She denies loss of consciousness. She denies any chest pain. She is complaining of pain in the left groin. She was brought by EMS to the ER. Past Medical History Dyslipidemia Past Surgical History Past Surgical Hx: no surgical history Family History Significant Family History: no pertinent family hx Social History Alcohol Use: none Smoking Status: Never smoker Drug Use: none Exam/Review of Systems Vital Signs Vitals Vital Signs Date Time Temp Pulse Resp B/P Pulse Ox O2 Delivery O2 Flow Rate FiO2 04/18/17 07:38 98.1 66 17 136/63 94 04/17/17 02:06 Room Air Intake and Output 04/17/17 04/17/17 04/18/17 15:00 23:00 07:00 Intake Total 500 ml 1600 ml 1330 ml Output Total 750 ml 1200 ml Balance 500 ml 850 ml 130 ml Exam Left hip: No open wounds Hip shortened, and help in external rotation. Pain with axial loading. 5/5 tibialis anterior, gastrocsoleus 2+ DP/PT Constitutional: alert, oriented Musculoskeletal: joint tenderness, muscle tone, muscle weakness, nl extremities to inspection, nl gait and stance, other, range of motion, spine non -tender, swelling Results AP Pelvis x-ray: Left displaced femoral neck fracture. No degenerative changes seen. No dislocation. Result Diagram: 04/18/17 0505 04/18/17 0505 Results 24 hrs Laboratory Tests Test 04/18/17 05:05 White Blood Count 9.1 Red Blood Count 3.22 L Hemoglobin 10.2 L Hematocrit 30.8 L Mean Corpuscular Volume 95.7 Mean Corpuscular Hemoglobin 31.7 Mean Corpuscular Hemoglobin Concent 33.1 Red Cell Distribution Width 15.9 H Platelet Count 304 Mean Platelet Volume 11.7 H Neutrophils % 71.3 Lymphocytes % 14.0 L Monocytes % 10.6 Eosinophils % 3.1 Basophils % 0.6 Nucleated Red Blood Cells % 0.0 Neutrophils # 6.5 Lymphocytes # 1.3 Monocytes # 1.0 H Eosinophils # 0.3 Basophils # 0.1 Nucleated Red Blood Cells # 0.0 Sodium Level 142 Potassium Level 4.4 Chloride Level 105 Carbon Dioxide Level 25 Anion Gap 16 Blood Urea Nitrogen 16 Creatinine 0.64 Glucose Level 103 Calcium Level 8.7 Medications Medications Current Medications Cyclosporine (Restasis) 1 drop Q12 BOTH EYES Last administered on 04/17/17 20: 05; Admin Dose 1 DROP; Start 04/16/17 at 21:00 Ergocalciferol (Drisdol) 50,000 unit Q7D PO ; Start 04/18/17 at 09:00 Metoprolol Tartrate (Lopressor) 25 mg DAILY PO Last administered on 04/17/17 09 :25; Admin Dose 25 MG; Start 04/17/17 at 09:00 Risedronate (Actonel) 35 mg Q7D PO ; Start 04/23/17 at 06:00 Pantoprazole (Protonix Tab) 40 mg DAILY@06 PO Last administered on 04/17/17 09: 26; Admin Dose 40 MG; Start 04/17/17 at 06:00 Atorvastatin Calcium (Lipitor) 20 mg DAILY@21 PO Last administered on 04/17/17 20:05; Admin Dose 20 MG; Start 04/16/17 at 21:00 Morphine Sulfate (morphine) 2 mg Q4H PRN IV pain Last administered on 04/17/17 06:18; Admin Dose 2 MG; Start 04/16/17 at 18:00 Ondansetron HCl (Zofran Inj) 4 mg Q6H PRN IV NAUSEA AND/OR VOMITING; Start at 18:00 Acetaminophen/ Hydrocodone Bitart ([place] (5/325)) 1 tab Q6H PRN PO pain Last administered on 04/17/17 22:00; Admin Dose 1 TAB; Start 04/16/17 at 18:00 Docusate Sodium (Colace) 100 mg BID PRN PO CONSTIPATION; Start 04/16/17 at 18: 00 Polyethylene Glycol (Miralax) 8.5 gm DAILY PO ; Start 04/17/17 at 09:00 Enoxaparin Sodium 40 mg 40 mg DAILY SC Last administered on 04/17/17 09:34; Admin Dose 40 MG; Start 04/16/17 at 21:00 Sodium Chloride 1,000 ml @ 75 mls/hr [id number] IV Last administered on 04/18/17 03:35; Admin Dose 75 MLS/HR; Start 04/17/17 at 03:00 Cefazolin Sodium (Ancef 1 Gm/50 ml (Pmx)) 50 ml @ 100 mls/hr OC IVPB ; Start at 06:00; Stop 04/18/17 at 22:22 Naloxone HCl (Narcan) 0.1 mg Q2M PRN IV FOR RESP RATE 8 OR LESS; Start 04/18/17 at 13:30; Stop 04/18/17 at 20:00 Hydromorphone HCl (Dilaudid) 0.6 mg Q3H PRN IV BREAKTHROUGH PAIN; Start at 13:30; Stop 04/21/17 at 13:29 Hydromorphone HCl (Dilaudid) 0.2 mg Q3H PRN IV PAIN LEVEL 1-5; Start 04/18/17 at 13:30; Stop 04/19/17 at 13:29 Hydromorphone HCl (Dilaudid) 0.4 mg Q3H PRN IV PAIN LEVEL 6-10; Start 04/18/17 at 13:30; Stop 04/18/17 at 20:00 Diphenhydramine HCl (Benadryl) 25 mg Q6H PRN IV ITCHING; Start 04/18/17 at 13:30 ; Stop 04/19/17 at 13:29 Ondansetron HCl 4 mg 4 mg Q6H PRN IV NAUSEA AND/OR VOMITING; Start 04/18/17 at 13:30; Stop 04/19/17 at 13:29 Cefazolin Sodium (Ancef 1 Gm/50 ml (Pmx)) 50 ml @ 100 mls/hr Q8 IVPB ; Start at 14:34; Stop 04/18/17 at 22:29 Acetaminophen/ Hydrocodone Bitart ([place] (5/325)) 1 tab Q6H PRN PO PAIN; Start 04/18/17 at 15:00 Tramadol HCl (Ultram) 50 mg Q8H PRN PO PAIN; Start 04/18/17 at 15:00 Aspirin (Ecotrin) 325 mg BID PO ; Start 04/18/17 at 21:00; Status Future Hold Ketorolac Tromethamine (Toradol) 15 mg Q6H PRN IV PRN; Start 04/18/17 at 15:00; Stop 04/21/17 at 14:59 MERNA FRY MD Apr 18, 2017 15:45
[2017-04-18 16:25] LABS: BASOPHIL # 0.1 10^3/ul (0.0-0.1); BASOPHILS % 0.4 % (0.0-2.0); EOSINOPHILS # 0.1 10^3/ul (0.0-0.5); EOSINOPHILS % 0.7 % (0.0-7.0); LYMPHOCYTES # 1.1 10^3/ul (0.8-2.9); LYMPHOCYTES % 6.8 % (15.0-51.0); MEAN CORPUSCULAR HEMOGLOBIN 32.7 pg (29.0-33.0); MEAN CORPUSCULAR HGB CONC 34.5 g/dl (32.0-37.0); MEAN CORPUSCULAR VOLUME 94.8 fl (82.0-101.0); MEAN PLATELET VOLUME 10.8 fl (7.4-10.4); MONOCYTE # 1.1 10^3/ul (0.3-0.9); MONOCYTES % 6.9 % (0.0-11.0); NEUTROPHIL # 13.8 10^3/ul (1.6-7.5); NEUTROPHILS % 84.5 % (39.0-77.0); PLATELET COUNT 290 10^3/UL (140-415); RED BLOOD COUNT 3.06 10^6/ul (4.20-5.40); RED CELL DISTRIBUTION WIDTH 15.8 % (11.5-14.5); WHITE BLOOD COUNT 16.3 10^3/ul (4.8-10.8)
[2017-04-18 16:27] LABS: ADD SCAN DIFF NO
[2017-04-18] MEDS ORDERED: METOPROLOL 5 MG INJ IV PRN (16:30)
[2017-04-18 16:42] LABS: CALCIUM 7.8 mg/dl (8.4-10.2); CREATININE 0.56 mg/dl (0.44-1.00); POTASSIUM 3.4 mmol/L (3.5-5.1)
--- NOTE | 2017-04-18 17:13 | RADRPT ---
PROCEDURE: XR left Hip. CLINICAL INDICATION: Status post hip replacement TECHNIQUE: AP view of the left hip was obtained. The images reviewed on a PACS workstation. COMPARISON: April 16, 2017 FINDINGS: Left hip replacement is identified. Prosthetic components are in appropriate position and alignment . No fractures or destructive lesions are observed. Soft tissue air is procedural in nature. IMPRESSION: Status post left hip replacement. Prosthetic components are in appropriate position and alignment. RPTAT: AA .Mega Springer MD, MD Date Time Electronically viewed and signed by .Mega Springer MD, on 04/18/2017 17:13 .P/
--- NOTE | 2017-04-18 17:17 | RADRPT ---
PROCEDURE: XR Pelvis. CLINICAL INDICATION: Status post left hip replacement. TECHNIQUE: Single AP view of the pelvis. COMPARISON: April 16, 2017 FINDINGS: Left hip replacement is identified. The prosthetic components are in appropriate position and align ment. Diffuse osteopenia is identified. The osseous structures appear intact. No destructive bony lesions are observed. Mild narrowing of the right hip joint is seen. Degenerative changes are see n in the lower lumbar spine. Vigil catheter is noted over the lower pelvis. Soft tissue air over t he left hip is procedural in nature. IMPRESSION: Left hip replacement. Prosthetic components are in appropriate position and alignment. Osteopenia. 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 Degenerative changes in the lower lumbar spine. RPTAT: AA .Mega Springer MD, MD Date Time Electronically viewed and signed by .Mega Springer MD, on 04/18/2017 17:17 .P/
[2017-04-18] MEDS: ATORVASTATIN 20 MG TAB PO SCH (21:22)
[2017-04-19] VITALS (10 sets, daily range): BP systolic 98–118; BP diastolic 49–65; PULSE 80–90; RESP 16–20
[2017-04-19] MEDS: HYDROCODONE/APAP (5/325) TAB PO PRN ×3 (00:09→18:22)
[2017-04-19] MEDS: CYCLOSPORINE 0.05% OPH DROPERETTE BOTH EYES SCH ×3 (00:12→21:09)
--- NOTE | 2017-04-19 03:55 | RADRPT ---
PROCEDURE: XR Pelvis. CLINICAL INDICATION: Left hip fracture TECHNIQUE: Single AP view of the pelvis. COMPARISON: 04/16/2017 FINDINGS: Two intraoperative AP views of the pelvis were obtained and show femoral broach in the left hip duri ng left total hip arthroplasty. Degenerative change of the lower lumbar spine is seen.. Multiple ov erlying surgical instruments. IMPRESSION: Femoral broach within the left hip. RPTAT: HLBE Yuli Andujar, Physician Date Time Electronically viewed and signed by Yuli Andujar, Physician on 04/19/2017 03:55 LE/
[2017-04-19 05:54] LABS: BASOPHILS % 0.2 % (0.0-2.0); EOSINOPHILS # 0.1 10^3/ul (0.0-0.5); EOSINOPHILS % 1.4 % (0.0-7.0); HEMATOCRIT 25.1 % (37.0-47.0); HEMOGLOBIN 8.3 g/dl (12.0-16.0); LYMPHOCYTES # 1.1 10^3/ul (0.8-2.9); MEAN CORPUSCULAR HEMOGLOBIN 31.7 pg (29.0-33.0); MEAN CORPUSCULAR HGB CONC 33.1 g/dl (32.0-37.0); MEAN CORPUSCULAR VOLUME 95.8 fl (82.0-101.0); MEAN PLATELET VOLUME 11.5 fl (7.4-10.4); MONOCYTE # 1.3 10^3/ul (0.3-0.9); NEUTROPHIL # 5.8 10^3/ul (1.6-7.5); NEUTROPHILS % 68.9 % (39.0-77.0); PLATELET COUNT 251 10^3/UL (140-415); RED BLOOD COUNT 2.62 10^6/ul (4.20-5.40); RED CELL DISTRIBUTION WIDTH 16.1 % (11.5-14.5); WHITE BLOOD COUNT 8.4 10^3/ul (4.8-10.8)
[2017-04-19] MEDS: PANTOPRAZOLE (EC) 40 MG TAB PO SCH (06:07)
[2017-04-19 06:13] LABS: MONOCYTES % 15.9 % (0.0-11.0)
[2017-04-19 06:22] LABS: CALCIUM 7.6 mg/dl (8.4-10.2); CREATININE 0.68 mg/dl (0.44-1.00); POTASSIUM 3.6 mmol/L (3.5-5.1)
[2017-04-19 07:35] LABS: ADD SCAN DIFF NO
--- NOTE | 2017-04-19 07:40 | RADRPT ---
PROCEDURE: XR Pelvis 1 View. CLINICAL INDICATION: Intraoperative left hip replacement. Left hip pain. TECHNIQUE: Single intraoperative AP view of the pelvis. COMPARISON: No prior studies are available for comparison. FINDINGS: Intraoperative components of a left hip replacement appear in appropriate position and alignment. D iffuse osteopenia is identified. Large portions of the pelvis are obscured by overlying material. Visualized osseous structures appear grossly intact No destructive bony lesions are observed. The right hip joint is grossly unremarkable. Soft tissue air is procedural in nature. IMPRESSION: Intraoperative components of a left hip replacement in grossly appropriate position and alignment. Please see procedure note for details. RPTAT: AA .Mega Springer MD, MD Date Time Electronically viewed and signed by .Mega Springer MD, on 04/19/2017 07:40 .P/
--- NOTE | 2017-04-19 08:14 | PN ---
Date/Time of Note Date/Time of Note DATE: 04/19/17 TIME: 08:12 Assessment/Plan VTE Prophylaxis VTE Prophylaxis Intervention: SCD's Lines/Catheters IV Catheter Type (from Nrsg): Peripheral IV Urinary Cath still in place: Yes Subjective 24 Hr Interval Summary Free Text/Dictation Anesthesia Note: A 81 year female s/p spinal duramorph, pod! is doing well, pain is controlled, no N/V , headache, itching, back pain, or infection or irritation at back. VSS. Exam/Review of Systems Vital Signs Vitals Vital Signs Date Time Temp Pulse Resp B/P Pulse Ox O2 Delivery O2 Flow Rate FiO2 04/19/17 08:09 82 04/19/17 07:21 99.1 18 100/55 97 04/18/17 18:04 Nasal Cannula 04/18/17 16:53 3.0 Intake and Output 04/18/17 04/18/17 04/19/17 15:00 23:00 07:00 Intake Total 1400 ml 100 ml 400 ml Output Total 775 ml 700 ml Balance 625 ml 100 ml -300 ml Results Result Diagram: 04/19/17 0520 04/19/17 0520 Results 24 hrs Laboratory Tests Test 04/18/17 16:20 04/19/17 05:20 White Blood Count 16.3 #H 8.4 # Red Blood Count 3.06 L 2.62 L Hemoglobin 10.0 L 8.3 L Hematocrit 29.0 L 25.1 L Mean Corpuscular Volume 94.8 95.8 Mean Corpuscular Hemoglobin 32.7 31.7 Mean Corpuscular Hemoglobin Concent 34.5 33.1 Red Cell Distribution Width 15.8 H 16.1 H Platelet Count 290 251 Mean Platelet Volume 10.8 H 11.5 H Neutrophils % 84.5 H 68.9 Lymphocytes % 6.8 L 13.0 L Monocytes % 6.9 15.9 H Eosinophils % 0.7 1.4 Basophils % 0.4 0.2 Nucleated Red Blood Cells % 0.0 0.0 Neutrophils # 13.8 H 5.8 Lymphocytes # 1.1 1.1 Monocytes # 1.1 H 1.3 H Eosinophils # 0.1 0.1 Basophils # 0.1 0.0 Nucleated Red Blood Cells # 0.0 0.0 Sodium Level 139 136 Potassium Level 3.4 L 3.6 Chloride Level 107 104 Carbon Dioxide Level 25 26 Anion Gap 10 # 10 Blood Urea Nitrogen 11 15 Creatinine 0.56 0.68 Glucose Level 124 129 Calcium Level 7.8 L 7.6 L Medications Medications Current Medications Cyclosporine (Restasis) 1 drop Q12 BOTH EYES Last administered on 04/19/17 00: 12; Admin Dose 1 DROP; Start 04/16/17 at 21:00 Ergocalciferol (Drisdol) 50,000 unit Q7D PO ; Start 04/18/17 at 09:00 Metoprolol Tartrate (Lopressor) 25 mg DAILY PO Last administered on 04/17/17 09 :25; Admin Dose 25 MG; Start 04/17/17 at 09:00 Risedronate (Actonel) 35 mg Q7D PO ; Start 04/23/17 at 06:00 Pantoprazole (Protonix Tab) 40 mg DAILY@06 PO Last administered on 04/19/17 06: 07; Admin Dose 40 MG; Start 04/17/17 at 06:00 Atorvastatin Calcium (Lipitor) 20 mg DAILY@21 PO Last administered on 04/18/17 21:22; Admin Dose 20 MG; Start 04/16/17 at 21:00 Morphine Sulfate (morphine) 2 mg Q4H PRN IV pain Last administered on 04/17/17 06:18; Admin Dose 2 MG; Start 04/16/17 at 18:00 Ondansetron HCl (Zofran Inj) 4 mg Q6H PRN IV NAUSEA AND/OR VOMITING; Start at 18:00 Acetaminophen/ Hydrocodone Bitart ([place] (5/325)) 1 tab Q6H PRN PO pain Last administered on 04/19/17 00:09; Admin Dose 1 TAB; Start 04/16/17 at 18:00 Docusate Sodium (Colace) 100 mg BID PRN PO CONSTIPATION; Start 04/16/17 at 18: 00 Polyethylene Glycol (Miralax) 8.5 gm DAILY PO ; Start 04/17/17 at 09:00 Enoxaparin Sodium 40 mg 40 mg DAILY SC Last administered on 04/17/17 09:34; Admin Dose 40 MG; Start 04/16/17 at 21:00 Sodium Chloride (NS) 1,000 ml @ 75 mls/hr [id number] IV Last administered on t 21:22; Admin Dose 75 MLS/HR; Start 04/17/17 at 03:00 Hydromorphone HCl (Dilaudid) 0.6 mg Q3H PRN IV BREAKTHROUGH PAIN; Start at 13:30; Stop 04/21/17 at 13:29 Hydromorphone HCl (Dilaudid) 0.2 mg Q3H PRN IV PAIN LEVEL 1-5; Start 04/18/17 at 13:30; Stop 04/19/17 at 13:29 Diphenhydramine HCl (Benadryl) 25 mg Q6H PRN IV ITCHING; Start 04/18/17 at 13:30 ; Stop 04/19/17 at 13:29 Ondansetron HCl (Zofran Inj) 4 mg Q6H PRN IV NAUSEA AND/OR VOMITING; Start 04/18 at 13:30; Stop 04/19/17 at 13:29 Acetaminophen/ Hydrocodone Bitart ([place] (5/325)) 1 tab Q6H PRN PO PAIN; Start 04/18/17 at 15:00 Tramadol HCl (Ultram) 50 mg Q8H PRN PO PAIN; Start 04/18/17 at 15:00 Aspirin (Ecotrin) 325 mg BID PO ; Start 04/18/17 at 21:00; Status Future Hold Ketorolac Tromethamine (Toradol) 15 mg Q6H PRN IV PRN; Start 04/18/17 at 15:00; Stop 04/21/17 at 14:59 JOSE MAHAN MD Apr 19, 2017 08:14
[2017-04-19] MEDS: POLYETHYLENE GLYCOL 17 GM PACKET PO SCH (08:31)
[2017-04-19] MEDS: METOPROLOL 25 MG TAB PO SCH (08:31)
[2017-04-19] MEDS: ENOXAPARIN 40 MG/0.4 ML SYG SC SCH (08:32)
[2017-04-19] MEDS: SOD CHLORIDE 0.9% 1,000 ML IV SCH (10:21)
[2017-04-19] MEDS: ASPIRIN (EC) 325 MG TAB PO SCH ×2 (11:22→21:09)
--- NOTE | 2017-04-19 12:29 | CONS ---
Date/Time of Note Date/Time of Note DATE: 04/19/17 TIME: 12:27 Assessment/Plan Assessment/Plan Additional Assessment/Plan 1 Pre-op: 81 yo with HTN, RBBB - s/p mech fall - here for pre-op eval for hip fxr repair No hemodynamic instability - BP in goodr sylvia - not in CHF - OK to proceed with surgery without any further re-stratification as unrepaired hip fracture if untreated leads to very high morbidity and mortality. Post op now - tolerated procedure well - pain controlled. Rehab to follow. 2. RBBB - likely chronic, negative troponios - Diast HF, chronic. 3. HTN - well Rx now ? incidental 4 GERD - PPI to folllow 5. Pain - con't pain rx as needed Consultation Date/Type/Reason Admit Date/Time Apr 16, 2017 at 12:42 24 HR Interval Summary Free Text/Dictation No acute change - tolerated procedure well. ROS: No fever, no chills, no nausea, no vomiting, no diarrhea/constipation No recent weight changes No chest pain, no PND, no orthopnea No dizziness, blurred vision No thirst, no heat or cold intolerance Exam/Review of Systems Vital Signs Vitals Vital Signs Date Time Temp Pulse Resp B/P Pulse Ox O2 Delivery O2 Flow Rate FiO2 04/19/17 12:11 90 04/19/17 11:06 98.1 16 117/60 92 04/18/17 18:04 Nasal Cannula 04/18/17 16:53 3.0 Intake and Output 04/18/17 04/18/17 04/19/17 15:00 23:00 07:00 Intake Total 1400 ml 100 ml 400 ml Output Total 775 ml 700 ml Balance 625 ml 100 ml -300 ml Exam General: WN/WD/NAD, AOx 3 HEENT: Unicetric/atraumatic/EOMI (follow commands) NECK: JVD elevated, no thyromegaly Lymph: no lymphadenopathy HEART: regular with no S3, II/ systolic murmur at apex LUNGS: Coarse sounds ABD: soft, NT, ND, +BS : Intact Neuro: non focal SKIN: chronic changes EXT: trace edema, post op Results Result Diagram: 04/19/17 0520 04/19/17 0520 Results 24 hrs Laboratory Tests Test 04/18/17 16:20 04/19/17 05:20 White Blood Count 16.3 #H 8.4 # Red Blood Count 3.06 L 2.62 L Hemoglobin 10.0 L 8.3 L Hematocrit 29.0 L 25.1 L Mean Corpuscular Volume 94.8 95.8 Mean Corpuscular Hemoglobin 32.7 31.7 Mean Corpuscular Hemoglobin Concent 34.5 33.1 Red Cell Distribution Width 15.8 H 16.1 H Platelet Count 290 251 Mean Platelet Volume 10.8 H 11.5 H Neutrophils % 84.5 H 68.9 Lymphocytes % 6.8 L 13.0 L Monocytes % 6.9 15.9 H Eosinophils % 0.7 1.4 Basophils % 0.4 0.2 Nucleated Red Blood Cells % 0.0 0.0 Neutrophils # 13.8 H 5.8 Lymphocytes # 1.1 1.1 Monocytes # 1.1 H 1.3 H Eosinophils # 0.1 0.1 Basophils # 0.1 0.0 Nucleated Red Blood Cells # 0.0 0.0 Sodium Level 139 136 Potassium Level 3.4 L 3.6 Chloride Level 107 104 Carbon Dioxide Level 25 26 Anion Gap 10 # 10 Blood Urea Nitrogen 11 15 Creatinine 0.56 0.68 Glucose Level 124 129 Calcium Level 7.8 L 7.6 L Differential Comment AUTO w/SCAN Medications Medications Current Medications Cyclosporine (Restasis) 1 drop Q12 BOTH EYES Last administered on 04/19/17 08: 30; Admin Dose 1 DROP; Start 04/16/17 at 21:00 Ergocalciferol (Drisdol) 50,000 unit Q7D PO ; Start 04/18/17 at 09:00 Metoprolol Tartrate (Lopressor) 25 mg DAILY PO Last administered on 04/17/17 09 :25; Admin Dose 25 MG; Start 04/17/17 at 09:00 Risedronate (Actonel) 35 mg Q7D PO ; Start 04/23/17 at 06:00 Pantoprazole (Protonix Tab) 40 mg DAILY@06 PO Last administered on 04/19/17 06: 07; Admin Dose 40 MG; Start 04/17/17 at 06:00 Atorvastatin Calcium (Lipitor) 20 mg DAILY@21 PO Last administered on 04/18/17 21:22; Admin Dose 20 MG; Start 04/16/17 at 21:00 Morphine Sulfate (morphine) 2 mg Q4H PRN IV pain Last administered on 04/17/17 06:18; Admin Dose 2 MG; Start 04/16/17 at 18:00 Ondansetron HCl (Zofran Inj) 4 mg Q6H PRN IV NAUSEA AND/OR VOMITING; Start at 18:00 Acetaminophen/ Hydrocodone Bitart ([place] (5/325)) 1 tab Q6H PRN PO pain Last administered on 04/19/17 11:21; Admin Dose 1 TAB; Start 04/16/17 at 18:00 Docusate Sodium (Colace) 100 mg BID PRN PO CONSTIPATION; Start 04/16/17 at 18: 00 Polyethylene Glycol (Miralax) 8.5 gm DAILY PO ; Start 04/17/17 at 09:00 Hydromorphone HCl (Dilaudid) 0.6 mg Q3H PRN IV BREAKTHROUGH PAIN; Start at 13:30; Stop 04/21/17 at 13:29 Hydromorphone HCl (Dilaudid) 0.2 mg Q3H PRN IV PAIN LEVEL 1-5; Start 04/18/17 at 13:30; Stop 04/19/17 at 13:29 Diphenhydramine HCl (Benadryl) 25 mg Q6H PRN IV ITCHING; Start 04/18/17 at 13:30 ; Stop 04/19/17 at 13:29 Ondansetron HCl (Zofran Inj) 4 mg Q6H PRN IV NAUSEA AND/OR VOMITING; Start 04/18 at 13:30; Stop 04/19/17 at 13:29 Acetaminophen/ Hydrocodone Bitart ([place] (5/325)) 1 tab Q6H PRN PO PAIN; Start 04/18/17 at 15:00 Tramadol HCl (Ultram) 50 mg Q8H PRN PO PAIN; Start 04/18/17 at 15:00 Aspirin (Ecotrin) 325 mg BID PO Last administered on 04/19/17 11:22; Admin Dose 325 MG; Start 04/18/17 at 21:00 FARIDA MOREJON MD Apr 19, 2017 12:29
--- NOTE | 2017-04-19 12:39 | PN ---
Date/Time of Note Date/Time of Note DATE: 04/19/17 TIME: 12:36 Assessment/Plan VTE Prophylaxis VTE Prophylaxis Intervention: LMWH Lines/Catheters IV Catheter Type (from Nrs): Saline Lock Urinary Cath still in place: Yes Reason Cath still needed: other (indicate) (Post op ) Assessment/Plan Assessment/Plan 1. Acute L Hip fracture s/p left hip hemiarthroplasty 04/18/17 2. Chronic HTN: fairly good control 3. Osteoporosis 4. Dyslipidemia 5. GERD 6. Diastilic CHF, Chronic PLAN: s/p ORIF d/c IVF stable, tele rhythm, S/p Cardiology follow up Possible downgrade to med/surge floor Lovenox for DVT prophylaxis Exam/Review of Systems Vital Signs Vitals Vital Signs Date Time Temp Pulse Resp B/P Pulse Ox O2 Delivery O2 Flow Rate FiO2 04/19/17 12:11 90 04/19/17 11:06 98.1 16 117/60 92 04/18/17 18:04 Nasal Cannula 04/18/17 16:53 3.0 Intake and Output 04/18/17 04/18/17 04/19/17 15:00 23:00 07:00 Intake Total 1400 ml 100 ml 400 ml Output Total 775 ml 700 ml Balance 625 ml 100 ml -300 ml Exam Psych: no complaints Head: normocephalic Neck: supple Respiratory: clear to auscultation Cardiovascular: regular rate and rhythm Gastrointestinal: soft Musculoskeletal: nl extremities to inspection Neurological: HARMONICA MAKER II-XII intact Results Result Diagram: 04/19/17 0520 04/19/17 0520 Results 24 hrs Laboratory Tests Test 04/18/17 16:20 04/19/17 05:20 White Blood Count 16.3 #H 8.4 # Red Blood Count 3.06 L 2.62 L Hemoglobin 10.0 L 8.3 L Hematocrit 29.0 L 25.1 L Mean Corpuscular Volume 94.8 95.8 Mean Corpuscular Hemoglobin 32.7 31.7 Mean Corpuscular Hemoglobin Concent 34.5 33.1 Red Cell Distribution Width 15.8 H 16.1 H Platelet Count 290 251 Mean Platelet Volume 10.8 H 11.5 H Neutrophils % 84.5 H 68.9 Lymphocytes % 6.8 L 13.0 L Monocytes % 6.9 15.9 H Eosinophils % 0.7 1.4 Basophils % 0.4 0.2 Nucleated Red Blood Cells % 0.0 0.0 Neutrophils # 13.8 H 5.8 Lymphocytes # 1.1 1.1 Monocytes # 1.1 H 1.3 H Eosinophils # 0.1 0.1 Basophils # 0.1 0.0 Nucleated Red Blood Cells # 0.0 0.0 Sodium Level 139 136 Potassium Level 3.4 L 3.6 Chloride Level 107 104 Carbon Dioxide Level 25 26 Anion Gap 10 # 10 Blood Urea Nitrogen 11 15 Creatinine 0.56 0.68 Glucose Level 124 129 Calcium Level 7.8 L 7.6 L Differential Comment AUTO w/SCAN Medications Medications Current Medications Cyclosporine (Restasis) 1 drop Q12 BOTH EYES Last administered on 04/19/17 08: 30; Admin Dose 1 DROP; Start 04/16/17 at 21:00 Ergocalciferol (Drisdol) 50,000 unit Q7D PO ; Start 04/18/17 at 09:00 Metoprolol Tartrate (Lopressor) 25 mg DAILY PO Last administered on 04/17/17 09 :25; Admin Dose 25 MG; Start 04/17/17 at 09:00 Risedronate (Actonel) 35 mg Q7D PO ; Start 04/23/17 at 06:00 Pantoprazole (Protonix Tab) 40 mg DAILY@06 PO Last administered on 04/19/17 06: 07; Admin Dose 40 MG; Start 04/17/17 at 06:00 Atorvastatin Calcium (Lipitor) 20 mg DAILY@21 PO Last administered on 04/18/17 21:22; Admin Dose 20 MG; Start 04/16/17 at 21:00 Morphine Sulfate (morphine) 2 mg Q4H PRN IV pain Last administered on 04/17/17 06:18; Admin Dose 2 MG; Start 04/16/17 at 18:00 Ondansetron HCl (Zofran Inj) 4 mg Q6H PRN IV NAUSEA AND/OR VOMITING; Start at 18:00 Acetaminophen/ Hydrocodone Bitart ([place] (5/325)) 1 tab Q6H PRN PO pain Last administered on 04/19/17 11:21; Admin Dose 1 TAB; Start 04/16/17 at 18:00 Docusate Sodium (Colace) 100 mg BID PRN PO CONSTIPATION; Start 04/16/17 at 18: 00 Polyethylene Glycol (Miralax) 8.5 gm DAILY PO ; Start 04/17/17 at 09:00 Hydromorphone HCl (Dilaudid) 0.6 mg Q3H PRN IV BREAKTHROUGH PAIN; Start at 13:30; Stop 04/21/17 at 13:29 Hydromorphone HCl (Dilaudid) 0.2 mg Q3H PRN IV PAIN LEVEL 1-5; Start 04/18/17 at 13:30; Stop 04/19/17 at 13:29 Diphenhydramine HCl (Benadryl) 25 mg Q6H PRN IV ITCHING; Start 04/18/17 at 13:30 ; Stop 04/19/17 at 13:29 Ondansetron HCl (Zofran Inj) 4 mg Q6H PRN IV NAUSEA AND/OR VOMITING; Start 04/18 at 13:30; Stop 04/19/17 at 13:29 Acetaminophen/ Hydrocodone Bitart ([place] (5/325)) 1 tab Q6H PRN PO PAIN; Start 04/18/17 at 15:00 Tramadol HCl (Ultram) 50 mg Q8H PRN PO PAIN; Start 04/18/17 at 15:00 Aspirin (Ecotrin) 325 mg BID PO Last administered on 04/19/17t 11:22; Admin Dose 325 MG; Start 04/18/17 at 21:00 MALACHI PICKERING MD Apr 19, 2017 12:39
--- NOTE | 2017-04-19 20:59 | RADRPT ---
V[place] Rate: 84 bpm RR Interval: 0 msec [place] Interval: 182 msec QRS Duration: 126 msec QT Interval: 408 msec QTC Interval: 482 msec P-R-T [place]: 66 - -14 - 48 degrees Normal sinus rhythm Right bundle branch block Abnormal ECG Electronically Signed By: Ady Puentes [id number]
[2017-04-19] MEDS: ATORVASTATIN 20 MG TAB PO SCH (21:09)
[2017-04-20] MEDS: morphine 2 MG INJ IV PRN ×2 (00:29→06:11)
[2017-04-20] MEDS: PANTOPRAZOLE (EC) 40 MG TAB PO SCH (05:04)
[2017-04-20 07:07] LABS: ADD SCAN DIFF NO
[2017-04-20 07:09] LABS: HEMATOCRIT 23.6 % (37.0-47.0); MEAN CORPUSCULAR HEMOGLOBIN 32.3 pg (29.0-33.0); MEAN CORPUSCULAR HGB CONC 33.9 g/dl (32.0-37.0); MEAN CORPUSCULAR VOLUME 95.2 fl (82.0-101.0); PLATELET COUNT 269 10^3/UL (140-415); RED BLOOD COUNT 2.48 10^6/ul (4.20-5.40); RED CELL DISTRIBUTION WIDTH 15.8 % (11.5-14.5); WHITE BLOOD COUNT 11.2 10^3/ul (4.8-10.8)
[2017-04-20 07:12] VITALS: BP 90/46; RESP 18
[2017-04-20 07:22] LABS: INR 1.28; PROTIME 16.1 Sec (12.2-14.2); PT RATIO 1.3
[2017-04-20 07:23] LABS: PARTIAL THROMBOPLASTIN TIME 40.9 Sec (25.0-35.0)
[2017-04-20 07:25] LABS: ALBUMIN 2.6 g/dl (3.3-4.9); ALBUMIN/GLOBULIN RATIO 1.44; BILIRUBIN,INDIRECT 0.5 mg/dl (0-1.1); BILIRUBIN,TOTAL 0.5 mg/dl (0.2-1.3); CREATININE 0.68 mg/dl (0.44-1.00); POTASSIUM 3.9 mmol/L (3.5-5.1); TOTAL PROTEIN 4.4 g/dl (6.1-8.1)
[2017-04-20] MEDS: POLYETHYLENE GLYCOL 17 GM PACKET PO SCH (08:36)
[2017-04-20] MEDS: METOPROLOL 25 MG TAB PO SCH (08:43)
[2017-04-20] MEDS: CYCLOSPORINE 0.05% OPH DROPERETTE BOTH EYES SCH ×2 (08:45→20:42)
[2017-04-20] MEDS: ASPIRIN (EC) 325 MG TAB PO SCH ×2 (08:45→20:41)
[2017-04-20 09:54] LABS: EOSINOPHILS # 0.3 10^3/ul (0.0-0.5); LYMPHOCYTES # 1.1 10^3/ul (0.8-2.9); MONOCYTE # 0.8 10^3/ul (0.3-0.9); PLATELET ESTIMATE PLT APPEAR ADEQUATE; POLYCHROMASIA 2+
--- NOTE | 2017-04-20 11:29 | PN ---
Date/Time of Note Date/Time of Note DATE: 04/20/17 TIME: 11:25 Assessment/Plan VTE Prophylaxis VTE Prophylaxis Intervention: other VTE Confirmed-Overlap Tx Rcvd Pt Rcvd Overlap Therapy: No Lines/Catheters IV Catheter Type (from Nrs): Saline Lock Urinary Cath still in place: Yes Reason Cath still needed: other (indicate) Assessment/Plan Chief Complaint/Hosp Course Problems: Assessment/Plan A: 81 year old female status post left hip hemiarthroplasty POD 2 P: She is WBAT. She is receiving aspirin 325 mg PO BID for 6 weeks. She will work with physical therapy. Upon discharge, she will follow up in my office within 2 weeks. Subjective 24 Hr Interval Summary Free Text/Dictation Patient is doing well. Her pain is controlled. She denies chest pain or SOB. She has not worked with therapy yet. She finished her post op antibiotics. She is receiving aspirin twice daily. She is tolerating regular diet. Exam/Review of Systems Vital Signs Vitals Vital Signs Date Time Temp Pulse Resp B/P Pulse Ox O2 Delivery O2 Flow Rate FiO2 04/20/17 07:12 97.5 80 18 90/46 91 04/18/17 18:04 Nasal Cannula 04/18/17 16:53 3.0 Intake and Output 04/19/17 04/19/17 04/20/17 15:00 23:00 07:00 Intake Total 660 ml 1000 ml Output Total 500 ml 1100 ml Balance 160 ml -100 ml Results Left Hip: Incision is clean and dry fiordaliza are intact Calf is soft with negative homans palpable dorsalis pedis pulse SCD on bilateral legs Abductor pillow present Result Diagram: 04/20/17 0615 04/20/17 0615 Results 24 hrs Laboratory Tests Test 04/20/17 06:15 White Blood Count 11.2 #H Red Blood Count 2.48 L Hemoglobin 8.0 L Hematocrit 23.6 L Mean Corpuscular Volume 95.2 Mean Corpuscular Hemoglobin 32.3 Mean Corpuscular Hemoglobin Concent 33.9 Red Cell Distribution Width 15.8 H Platelet Count 269 Mean Platelet Volume 12.0 H Neutrophils % 80.0 H Lymphocytes % 10.0 L Monocytes % 7.0 Eosinophils % 3.0 Neutrophils # 9.0 H Lymphocytes # 1.1 Monocytes # 0.8 Eosinophils # 0.3 Platelet Estimate PLT APPEAR ADEQUATE Polychromasia 2+ Prothrombin Time 16.1 H Prothrombin Time Ratio 1.3 INR International Normalized Ratio 1.28 Activated Partial Thromboplast Time 40.9 H Sodium Level 137 Potassium Level 3.9 Chloride Level 100 Carbon Dioxide Level 26 Anion Gap 15 Blood Urea Nitrogen 16 Creatinine 0.68 Glucose Level 114 Calcium Level 8.0 L Total Bilirubin 0.5 Direct Bilirubin 0.00 Indirect Bilirubin 0.5 Aspartate Amino Transf (AST/SGOT) 21 Alanine Aminotransferase (ALT/SGPT) 28 Alkaline Phosphatase 52 Total Protein 4.4 L Albumin 2.6 L Globulin 1.80 Albumin/Globulin Ratio 1.44 Medications Medications Current Medications Cyclosporine (Restasis) 1 drop Q12 BOTH EYES Last administered on 04/20/17 08: 45; Admin Dose 1 DROP; Start 04/16/17 at 21:00 Ergocalciferol (Drisdol) 50,000 unit Q7D PO ; Start 04/18/17 at 09:00 Metoprolol Tartrate (Lopressor) 25 mg DAILY PO Last administered on 04/17/17 09 :25; Admin Dose 25 MG; Start 04/17/17 at 09:00 Risedronate (Actonel) 35 mg Q7D PO ; Start 04/23/17 at 06:00 Pantoprazole (Protonix Tab) 40 mg DAILY@06 PO Last administered on 04/20/17 05: 04; Admin Dose 40 MG; Start 04/17/17 at 06:00 Atorvastatin Calcium (Lipitor) 20 mg DAILY@21 PO Last administered on 04/19/17 21:09; Admin Dose 20 MG; Start 04/16/17 at 21:00 Morphine Sulfate (morphine) 2 mg Q4H PRN IV pain Last administered on 04/20/17 06:11; Admin Dose 2 MG; Start 04/16/17 at 18:00 Ondansetron HCl (Zofran Inj) 4 mg Q6H PRN IV NAUSEA AND/OR VOMITING; Start at 18:00 Acetaminophen/ Hydrocodone Bitart ([place] (5/325)) 1 tab Q6H PRN PO pain Last administered on 04/19/17 18:22; Admin Dose 1 TAB; Start 04/16/17 at 18:00 Docusate Sodium (Colace) 100 mg BID PRN PO CONSTIPATION; Start 04/16/17 at 18: 00 Polyethylene Glycol (Miralax) 8.5 gm DAILY PO ; Start 04/17/17 at 09:00 Hydromorphone HCl (Dilaudid) 0.6 mg Q3H PRN IV BREAKTHROUGH PAIN; Start at 13:30; Stop 04/21/17 at 13:29 Acetaminophen/ Hydrocodone Bitart ([place] (5/325)) 1 tab Q6H PRN PO PAIN; Start 04/18/17 at 15:00 Tramadol HCl (Ultram) 50 mg Q8H PRN PO PAIN; Start 04/18/17 at 15:00 Aspirin (Ecotrin) 325 mg BID PO Last administered on 04/20/17 08:45; Admin Dose 325 MG; Start 04/18/17 at 21:00 MERNA FRY MD Apr 20, 2017 11:29
--- NOTE | 2017-04-20 11:54 | CONS ---
Date/Time of Note Date/Time of Note DATE: 04/20/17 TIME: 11:53 Assessment/Plan Assessment/Plan Additional Assessment/Plan 1 HTN - s/p mech fall - here for pre-op eval for hip fxr repair No hemodynamic instability - BP in goodr sylvia - not in CHF - OK to proceed with surgery without any further re-stratification as unrepaired hip fracture if untreated leads to very high morbidity and mortality. Post op now - tolerated procedure well - pain controlled. BETER NOW. Rehab to follow. 2. RBBB - likely chronic, negative troponios - Diast HF, chronic. 3. HTN - well Rx now ? incidental 4 GERD - PPI to folllow 5. Pain - con't pain rx as needed 6. Post op - doing very well in rehab - dispo planned for Wednesday. Consultation Date/Type/Reason Admit Date/Time Apr 16, 2017 at 12:42 24 HR Interval Summary Free Text/Dictation NO acute events - BP in good range - con't rehab. ROS: No fever, no chills, no nausea, no vomiting, no diarrhea/constipation No recent weight changes No chest pain, no PND, no orthopnea No dizziness, blurred vision No thirst, no heat or cold intolerance Exam/Review of Systems Vital Signs Vitals Vital Signs Date Time Temp Pulse Resp B/P Pulse Ox O2 Delivery O2 Flow Rate FiO2 04/20/17 07:12 97.5 80 18 90/46 91 04/18/17 18:04 Nasal Cannula 04/18/17 16:53 3.0 Intake and Output 04/19/17 04/19/17 04/20/17 15:00 23:00 07:00 Intake Total 660 ml 1000 ml Output Total 500 ml 1100 ml Balance 160 ml -100 ml Exam General: WN/WD/NAD, AOx 3 HEENT: Unicetric/atraumatic/EOMI (follow commands) NECK: JVD elevated, no thyromegaly Lymph: no lymphadenopathy HEART: regular with no S3, II/ systolic murmur at apex LUNGS: Coarse sounds ABD: soft, NT, ND, +BS : Intact Neuro: non focal SKIN: chronic changes EXT: trace edema Results Result Diagram: 04/20/1715 04/20/1715 Results 24 hrs Laboratory Tests Test 04/20/17 06:15 White Blood Count 11.2 #H Red Blood Count 2.48 L Hemoglobin 8.0 L Hematocrit 23.6 L Mean Corpuscular Volume 95.2 Mean Corpuscular Hemoglobin 32.3 Mean Corpuscular Hemoglobin Concent 33.9 Red Cell Distribution Width 15.8 H Platelet Count 269 Mean Platelet Volume 12.0 H Neutrophils % 80.0 H Lymphocytes % 10.0 L Monocytes % 7.0 Eosinophils % 3.0 Neutrophils # 9.0 H Lymphocytes # 1.1 Monocytes # 0.8 Eosinophils # 0.3 Platelet Estimate PLT APPEAR ADEQUATE Polychromasia 2+ Prothrombin Time 16.1 H Prothrombin Time Ratio 1.3 INR International Normalized Ratio 1.28 Activated Partial Thromboplast Time 40.9 H Sodium Level 137 Potassium Level 3.9 Chloride Level 100 Carbon Dioxide Level 26 Anion Gap 15 Blood Urea Nitrogen 16 Creatinine 0.68 Glucose Level 114 Calcium Level 8.0 L Total Bilirubin 0.5 Direct Bilirubin 0.00 Indirect Bilirubin 0.5 Aspartate Amino Transf (AST/SGOT) 21 Alanine Aminotransferase (ALT/SGPT) 28 Alkaline Phosphatase 52 Total Protein 4.4 L Albumin 2.6 L Globulin 1.80 Albumin/Globulin Ratio 1.44 Medications Medications Current Medications Cyclosporine (Restasis) 1 drop Q12 BOTH EYES Last administered on 04/20/17 08: 45; Admin Dose 1 DROP; Start 04/16/17 at 21:00 Ergocalciferol (Drisdol) 50,000 unit Q7D PO ; Start 04/18/17 at 09:00 Metoprolol Tartrate (Lopressor) 25 mg DAILY PO Last administered on 04/17/17 09 :25; Admin Dose 25 MG; Start 04/17/17 at 09:00 Risedronate (Actonel) 35 mg Q7D PO ; Start 04/23/17 at 06:00 Pantoprazole (Protonix Tab) 40 mg DAILY@06 PO Last administered on 04/20/17 05: 04; Admin Dose 40 MG; Start 04/17/17 at 06:00 Atorvastatin Calcium (Lipitor) 20 mg DAILY@21 PO Last administered on 04/19/17 21:09; Admin Dose 20 MG; Start 04/16/17 at 21:00 Morphine Sulfate (morphine) 2 mg Q4H PRN IV pain Last administered on 04/20/17 06:11; Admin Dose 2 MG; Start 04/16/17 at 18:00 Ondansetron HCl (Zofran Inj) 4 mg Q6H PRN IV NAUSEA AND/OR VOMITING; Start at 18:00 Acetaminophen/ Hydrocodone Bitart ([place] (5/325)) 1 tab Q6H PRN PO pain Last administered on 04/19/17 18:22; Admin Dose 1 TAB; Start 04/16/17 at 18:00 Docusate Sodium (Colace) 100 mg BID PRN PO CONSTIPATION; Start 04/16/17 at 18: 00 Polyethylene Glycol (Miralax) 8.5 gm DAILY PO ; Start 04/17/17 at 09:00 Hydromorphone HCl (Dilaudid) 0.6 mg Q3H PRN IV BREAKTHROUGH PAIN; Start at 13:30; Stop 04/21/17 at 13:29 Acetaminophen/ Hydrocodone Bitart ([place] (5/325)) 1 tab Q6H PRN PO PAIN; Start 04/18/17 at 15:00 Tramadol HCl (Ultram) 50 mg Q8H PRN PO PAIN; Start 04/18/17 at 15:00 Aspirin (Ecotrin) 325 mg BID PO Last administered on 04/20/17 08:45; Admin Dose 325 MG; Start 04/18/17 at 21:00 FARIDA MOREJON MD Apr 20, 2017 11:54
[2017-04-20 13:00] VITALS: BP 110/50; PULSE 80
[2017-04-20] MEDS: HYDROCODONE/APAP (5/325) TAB PO PRN ×2 (13:18→14:09)
--- NOTE | 2017-04-20 14:20 | PN ---
Date/Time of Note Date/Time of Note DATE: 04/20/17 TIME: 14:18 Assessment/Plan VTE Prophylaxis VTE Prophylaxis Intervention: LMWH Lines/Catheters IV Catheter Type (from Nrsg): Saline Lock Urinary Cath still in place: Yes Reason Cath still needed: other (indicate) (d/c in AM ) Assessment/Plan Assessment/Plan 1. Acute L Hip fracture s/p left hip hemiarthroplasty 04/18/17 2. Chronic HTN: fairly good control 3. Osteoporosis 4. Dyslipidemia 5. GERD 6. Diastilic CHF, Chronic PLAN: s/p ORIF, now stable post op stable, tele rhythm, S/p Cardiology follow up downgraded to [facility] floor Lovenox for DVT prophylaxis d/c fajardo catheter tomorrow AM Subjective 24 Hr Interval Summary Free Text/Dictation transferred to [facility], did not had a PT yesterday and family was upset about it Exam/Review of Systems Vital Signs Vitals Vital Signs Date Time Temp Pulse Resp B/P Pulse Ox O2 Delivery O2 Flow Rate FiO2 04/20/17 07:12 97.5 80 18 90/46 91 04/18/17 18:04 Nasal Cannula 04/18/17 16:53 3.0 Intake and Output 04/19/17 04/19/17 04/20/17 15:00 23:00 07:00 Intake Total 660 ml 1000 ml Output Total 500 ml 1100 ml Balance 160 ml -100 ml Exam Psych: no complaints Head: normocephalic Neck: supple Respiratory: clear to auscultation Cardiovascular: regular rate and rhythm Gastrointestinal: soft Musculoskeletal: nl extremities to inspection Neurological: THEATER TEACHER II-XII intact Results Result Diagram: 04/20/17 0615 04/20/17 0615 Results 24 hrs Laboratory Tests Test 04/20/17 06:15 White Blood Count 11.2 #H Red Blood Count 2.48 L Hemoglobin 8.0 L Hematocrit 23.6 L Mean Corpuscular Volume 95.2 Mean Corpuscular Hemoglobin 32.3 Mean Corpuscular Hemoglobin Concent 33.9 Red Cell Distribution Width 15.8 H Platelet Count 269 Mean Platelet Volume 12.0 H Neutrophils % 80.0 H Lymphocytes % 10.0 L Monocytes % 7.0 Eosinophils % 3.0 Neutrophils # 9.0 H Lymphocytes # 1.1 Monocytes # 0.8 Eosinophils # 0.3 Platelet Estimate PLT APPEAR ADEQUATE Polychromasia 2+ Prothrombin Time 16.1 H Prothrombin Time Ratio 1.3 INR International Normalized Ratio 1.28 Activated Partial Thromboplast Time 40.9 H Sodium Level 137 Potassium Level 3.9 Chloride Level 100 Carbon Dioxide Level 26 Anion Gap 15 Blood Urea Nitrogen 16 Creatinine 0.68 Glucose Level 114 Calcium Level 8.0 L Total Bilirubin 0.5 Direct Bilirubin 0.00 Indirect Bilirubin 0.5 Aspartate Amino Transf (AST/SGOT) 21 Alanine Aminotransferase (ALT/SGPT) 28 Alkaline Phosphatase 52 Total Protein 4.4 L Albumin 2.6 L Globulin 1.80 Albumin/Globulin Ratio 1.44 Medications Medications Current Medications Cyclosporine (Restasis) 1 drop Q12 BOTH EYES Last administered on 04/20/17 08: 45; Admin Dose 1 DROP; Start 04/16/17 at 21:00 Ergocalciferol (Drisdol) 50,000 unit Q7D PO ; Start 04/18/17 at 09:00 Risedronate (Actonel) 35 mg Q7D PO ; Start 04/23/17 at 06:00 Pantoprazole (Protonix Tab) 40 mg DAILY@06 PO Last administered on 04/20/17 05: 04; Admin Dose 40 MG; Start 04/17/17 at 06:00 Atorvastatin Calcium (Lipitor) 20 mg DAILY@21 PO Last administered on 04/19/17 21:09; Admin Dose 20 MG; Start 04/16/17 at 21:00 Morphine Sulfate (morphine) 2 mg Q4H PRN IV pain Last administered on 04/20/17 06:11; Admin Dose 2 MG; Start 04/16/17 at 18:00 Ondansetron HCl (Zofran Inj) 4 mg Q6H PRN IV NAUSEA AND/OR VOMITING; Start at 18:00 Acetaminophen/ Hydrocodone Bitart ([place] (5/325)) 1 tab Q6H PRN PO pain Last administered on 04/20/17 14:09; Admin Dose 1 TAB; Start 04/16/17 at 18:00 Docusate Sodium (Colace) 100 mg BID PRN PO CONSTIPATION; Start 04/16/17 at 18: 00 Polyethylene Glycol (Miralax) 8.5 gm DAILY PO ; Start 04/17/17 at 09:00 Hydromorphone HCl (Dilaudid) 0.6 mg Q3H PRN IV BREAKTHROUGH PAIN; Start at 13:30; Stop 04/21/17 at 13:29 Acetaminophen/ Hydrocodone Bitart ([place] (5/325)) 1 tab Q6H PRN PO PAIN; Start 04/18/17 at 15:00 Tramadol HCl (Ultram) 50 mg Q8H PRN PO PAIN; Start 04/18/17 at 15:00 Aspirin (Ecotrin) 325 mg BID PO Last administered on 04/20/17t 08:45; Admin Dose 325 MG; Start 04/18/17 at 21:00 Metoprolol Tartrate (Lopressor) 12.5 mg DAILY PO ; Start 04/21/17 at 09:00 MALACHI PICKERING MD Apr 20, 2017 14:20
[2017-04-20 20:39] VITALS: BP 114/55; RESP 16
[2017-04-20] MEDS: ATORVASTATIN 20 MG TAB PO SCH (20:42)
[2017-04-21] MEDS: PANTOPRAZOLE (EC) 40 MG TAB PO SCH (05:41)
[2017-04-21] MEDS: HYDROCODONE/APAP (5/325) TAB PO PRN ×2 (06:03→21:16)
[2017-04-21 06:29] LABS: CALCIUM 8.1 mg/dl (8.4-10.2); CREATININE 0.61 mg/dl (0.44-1.00); POTASSIUM 3.4 mmol/L (3.5-5.1)
[2017-04-21 07:13] VITALS: BP 97/52; RESP 18
[2017-04-21] MEDS: ASPIRIN (EC) 325 MG TAB PO SCH ×2 (08:18→21:16)
[2017-04-21] MEDS: CYCLOSPORINE 0.05% OPH DROPERETTE BOTH EYES SCH ×2 (08:18→21:15)
[2017-04-21] MEDS: POLYETHYLENE GLYCOL 17 GM PACKET PO SCH (08:18)
[2017-04-21] MEDS: METOPROLOL 25 MG TAB PO SCH (08:19)
--- NOTE | 2017-04-21 12:48 | PN ---
Date/Time of Note Date/Time of Note DATE: 04/21/17 TIME: 12:40 Assessment/Plan VTE Prophylaxis VTE Prophylaxis Intervention: LMWH Lines/Catheters IV [facility]from [facility] Saline Lock Central line still needed: No Urinary Cath still in place: No Assessment/Plan Chief Complaint/Hosp Course Postop doing well Problems: Assessment/Plan 1. Acute L Hip fracture s/p left hip hemiarthroplasty 04/18/17 2. Chronic HTN: fairly good control 3. Osteoporosis 4. Dyslipidemia 5. GERD 6. Diastilic CHF, Chronic PLAN: s/p ORIF, now stable post op stable, tele rhythm, S/p Cardiology follow up downgraded to med/surge floor Lovenox for DVT prophylaxis d/c fajardo catheter Follow-up labs Subjective 24 Hr Interval Summary Free Text/Dictation Chart reviewed. Events noted. Patient lying in bed in no distress. Working with physical therapy. Eyes: No discharge ENT: No bleeding, No congestion Respiratory: No shortness of breath Cardiovascular: No chest pain Gastrointestinal: No nausea, No vomiting Genitourinary: No bleeding Neurologic: No confusion Endocrine: No polyuria Lymphatic: No adenopathy Psychological: No anxiety Exam/Review of Systems Vital Signs Vitals Vital Signs Date Time Temp Pulse Resp B/P Pulse Ox O2 Delivery O2 Flow Rate FiO2 04/21/17 07:13 99.1 78 18 97/52 94 04/20/17 13:00 Nasal Cannula 04/18/17 16:53 3.0 Intake and Output 04/20/17 04/20/17 04/21/17 15:00 23:00 07:00 Intake Total 720 ml Output Total 950 ml Balance -230 ml Exam Constitutional: alert, oriented Psych: No no complaints Head: atraumatic, normocephalic Eyes: EOMI, PERRL, nl sclera ENMT: mucosa pink and moist, nl nasal mucosa & septum Neck: non-tender, supple, No bruits, No jvd Respiratory: clear to auscultation Cardiovascular: regular rate and rhythm Gastrointestinal: nl liver, spleen, non-tender, soft, No distended, No mass Musculoskeletal: nl extremities to inspection Extremities: No calf tenderness, No clubbing, No cyanosis, No edema Neurological: BUSINESS CONTROL SPECIALIST II-XII intact, nl mental status Results Result Diagram: 04/20/17 0615 04/21/17 6865 Results 24 hrs Laboratory Tests Test 04/21/17 04:55 Sodium Level 138 Potassium Level 3.4 L Chloride Level 100 Carbon Dioxide Level 27 Anion Gap 14 Blood Urea Nitrogen 15 Creatinine 0.61 Glucose Level 110 Calcium Level 8.1 L Medications Medications Current Medications Cyclosporine (Restasis) 1 drop Q12 BOTH EYES Last administered on 04/21/17 08: 18; Admin Dose 1 DROP; Start 04/16/17 at 21:00 Ergocalciferol (Drisdol) 50,000 unit Q7D PO ; Start 04/18/17 at 09:00 Risedronate (Actonel) 35 mg Q7D PO ; Start 04/23/17 at 06:00 Pantoprazole (Protonix Tab) 40 mg DAILY@06 PO Last administered on 04/21/17 05: 41; Admin Dose 40 MG; Start 04/17/17 at 06:00 Atorvastatin Calcium (Lipitor) 20 mg DAILY@21 PO Last administered on 04/20/17 20:42; Admin Dose 20 MG; Start 04/16/17 at 21:00 Morphine Sulfate (morphine) 2 mg Q4H PRN IV pain Last administered on 04/20/17 06:11; Admin Dose 2 MG; Start 04/16/17 at 18:00 Ondansetron HCl (Zofran Inj) 4 mg Q6H PRN IV NAUSEA AND/OR VOMITING; Start at 18:00 Acetaminophen/ Hydrocodone Bitart ([place] (5/325)) 1 tab Q6H PRN PO pain Last administered on 04/21/17 06:03; Admin Dose 1 TAB; Start 04/16/17 at 18:00 Docusate Sodium (Colace) 100 mg BID PRN PO CONSTIPATION; Start 04/16/17 at 18: 00 Polyethylene Glycol (Miralax) 8.5 gm DAILY PO Last administered on 04/21/17 08: 18; Admin Dose 8.5 GM; Start 04/17/17 at 09:00 Hydromorphone HCl (Dilaudid) 0.6 mg Q3H PRN IV BREAKTHROUGH PAIN; Start at 13:30; Stop 04/21/17 at 13:29 Acetaminophen/ Hydrocodone Bitart ([place] (5/325)) 1 tab Q6H PRN PO PAIN; Start 04/18/17 at 15:00 Tramadol HCl (Ultram) 50 mg Q8H PRN PO PAIN; Start 04/18/17 at 15:00 Aspirin (Ecotrin) 325 mg BID PO Last administered on 04/21/17t 08:18; Admin Dose 325 MG; Start 04/18/17 at 21:00 Metoprolol Tartrate (Lopressor) 12.5 mg DAILY PO ; Start 04/21/17 at 09:00 EVER MOORE MD Apr 21, 2017 12:48
[2017-04-21] MEDS ORDERED: POTASSIUM CHLORIDE (SR) 20 MEQ TAB PO STA (12:54)
[2017-04-21 13:20] LABS: ADD SCAN DIFF NO
[2017-04-21 14:21] LABS: BASOPHIL # 0.1 10^3/ul (0.0-0.1); BASOPHILS % 0.5 % (0.0-2.0); EOSINOPHILS # 0.3 10^3/ul (0.0-0.5); EOSINOPHILS % 2.9 % (0.0-7.0); HEMATOCRIT 24.1 % (37.0-47.0); HEMOGLOBIN 7.9 g/dl (12.0-16.0); LYMPHOCYTES # 1.1 10^3/ul (0.8-2.9); LYMPHOCYTES % 10.3 % (15.0-51.0); MEAN CORPUSCULAR HEMOGLOBIN 31.9 pg (29.0-33.0); MEAN CORPUSCULAR HGB CONC 32.8 g/dl (32.0-37.0); MEAN CORPUSCULAR VOLUME 97.2 fl (82.0-101.0); MEAN PLATELET VOLUME 12.4 fl (7.4-10.4); MONOCYTE # 1.1 10^3/ul (0.3-0.9); MONOCYTES % 10.4 % (0.0-11.0); NEUTROPHIL # 7.7 10^3/ul (1.6-7.5); NEUTROPHILS % 75.4 % (39.0-77.0); PLATELET COUNT 312 10^3/UL (140-415); RED BLOOD COUNT 2.48 10^6/ul (4.20-5.40); RED CELL DISTRIBUTION WIDTH 16.2 % (11.5-14.5); WHITE BLOOD COUNT 10.2 10^3/ul (4.8-10.8)
--- NOTE | 2017-04-21 14:28 | CONS ---
Date/Time of Note Date/Time of Note DATE: 04/21/17 TIME: 14:23 Assessment/Plan Assessment/Plan Chief Complaint/Hosp Course IMP: 1.Post-op- s/p HIP ORIF [facility] - 3. RBBB - likely chronic, negative troponios - Diast HF, chronic. 4 GERD - PPI to folllow 5. Pain - con't pain rx as needed 6. Diastolic dysfunction 7.Osteoporosis Recc: -Continue asa/statin -Continue low dose BB as tolerated only -pain control -PT Problems: Consultation Date/Type/Reason Admit Date/Time Apr 16, 2017 at 12:42 Initial Consult Date 04/17/17 Type of Consultation: Cardiology Reason for Consultation Pre-op/HTN Referring Provider: SHANNAN CAN Exam/Review of Systems Vital Signs Vitals Vital Signs Date Time Temp Pulse Resp B/P Pulse Ox O2 Delivery O2 Flow Rate FiO2 04/21/17 07:13 99.1 78 18 97/52 94 04/20/17 13:00 Nasal Cannula 04/18/17 16:53 3.0 Intake and Output 04/20/17 04/20/17 04/21/17 14:59 22:59 06:59 Intake Total 720 ml Output Total 950 ml Balance -230 ml Exam Review of Systems: CONSTITUTIONAL: No fevers, chills. PULMONARY: No sob CARDIOVASCULAR: No chest pain/palpitations GASTROINTESTINAL: No nausea/vomiting. GENITOURINARY: No hematuria/dysuria. MUSCULOSKELETAL: Mild pain at surgical site PSYCHIATRIC: The patient denies depression. NEUROLOGIC: No weakness Constitutional: other (sleeping) Psych: no complaints Head: normocephalic ENMT: mucosa pink and moist Neck: supple Respiratory: diminished breath sounds (at bases/B) Cardiovascular: regular rate and rhythm Gastrointestinal: non-tender, soft Musculoskeletal: muscle tone (normal) Extremities: edema (none) Neurological: other (No focal deficits) Results Result Diagram: 04/21/17 0455 04/21/17 0455 Results 24 hrs Laboratory Tests Test 04/21/17 04:55 White Blood Count 10.2 Red Blood Count 2.48 L Hemoglobin 7.9 L Hematocrit 24.1 L Mean Corpuscular Volume 97.2 Mean Corpuscular Hemoglobin 31.9 Mean Corpuscular Hemoglobin Concent 32.8 Red Cell Distribution Width 16.2 H Platelet Count 312 Mean Platelet Volume 12.4 H Neutrophils % 75.4 Lymphocytes % 10.3 L Monocytes % 10.4 Eosinophils % 2.9 Basophils % 0.5 Nucleated Red Blood Cells % 0.0 Neutrophils # 7.7 H Lymphocytes # 1.1 Monocytes # 1.1 H Eosinophils # 0.3 Basophils # 0.1 Nucleated Red Blood Cells # 0.0 Sodium Level 138 Potassium Level 3.4 L Chloride Level 100 Carbon Dioxide Level 27 Anion Gap 14 Blood Urea Nitrogen 15 Creatinine 0.61 Glucose Level 110 Calcium Level 8.1 L Medications Medications Current Medications Cyclosporine (Restasis) 1 drop Q12 BOTH EYES Last administered on 04/21/17 08: 18; Admin Dose 1 DROP; Start 04/16/17 at 21:00 Ergocalciferol (Drisdol) 50,000 unit Q7D PO ; Start 04/18/17 at 09:00 Risedronate (Actonel) 35 mg Q7D PO ; Start 04/23/17 at 06:00 Pantoprazole (Protonix Tab) 40 mg DAILY@06 PO Last administered on 04/21/17 05: 41; Admin Dose 40 MG; Start 04/17/17 at 06:00 Atorvastatin Calcium (Lipitor) 20 mg DAILY@21 PO Last administered on 04/20/17 20:42; Admin Dose 20 MG; Start 04/16/17 at 21:00 Morphine Sulfate (morphine) 2 mg Q4H PRN IV pain Last administered on 04/20/17 06:11; Admin Dose 2 MG; Start 04/16/17 at 18:00 Ondansetron HCl (Zofran Inj) 4 mg Q6H PRN IV NAUSEA AND/OR VOMITING; Start at 18:00 Acetaminophen/ Hydrocodone Bitart ([place] (5/325)) 1 tab Q6H PRN PO pain Last administered on 04/21/17 06:03; Admin Dose 1 TAB; Start 04/16/17 at 18:00 Docusate Sodium (Colace) 100 mg BID PRN PO CONSTIPATION; Start 04/16/17 at 18: 00 Polyethylene Glycol (Miralax) 8.5 gm DAILY PO Last administered on 04/21/17 08: 18; Admin Dose 8.5 GM; Start 04/17/17 at 09:00 Acetaminophen/ Hydrocodone Bitart ([place] (5/325)) 1 tab Q6H PRN PO PAIN; Start 04/18/17 at 15:00 Tramadol HCl (Ultram) 50 mg Q8H PRN PO PAIN; Start 04/18/17 at 15:00 Aspirin (Ecotrin) 325 mg BID PO Last administered on 04/21/17t 08:18; Admin Dose 325 MG; Start 04/18/17 at 21:00 Metoprolol Tartrate (Lopressor) 12.5 mg DAILY PO ; Start 04/21/17 at 09:00 RL CONTRERAS Apr 21, 2017 14:28
[2017-04-21 20:15] VITALS: BP 133/62; RESP 18
[2017-04-21] MEDS: ATORVASTATIN 20 MG TAB PO SCH (21:16)
[2017-04-22] MEDS: PANTOPRAZOLE (EC) 40 MG TAB PO SCH (05:14)
[2017-04-22] MEDS: HYDROCODONE/APAP (5/325) TAB PO PRN ×2 (06:17→18:55)
[2017-04-22 06:22] LABS: CREATININE 0.64 mg/dl (0.44-1.00); POTASSIUM 4.1 mmol/L (3.5-5.1)
[2017-04-22 07:32] VITALS: BP 123/59; RESP 18
[2017-04-22] MEDS: METOPROLOL 25 MG TAB PO SCH (09:00)
[2017-04-22] MEDS: ASPIRIN (EC) 325 MG TAB PO SCH ×3 (09:00→21:32)
[2017-04-22] MEDS: CYCLOSPORINE 0.05% OPH DROPERETTE BOTH EYES SCH ×2 (09:02→22:33)
[2017-04-22] MEDS: POLYETHYLENE GLYCOL 17 GM PACKET PO SCH (09:03)
--- NOTE | 2017-04-22 11:23 | CONS ---
Date/Time of Note Date/Time of Note DATE: 04/22/17 TIME: 11:21 Assessment/Plan Assessment/Plan Chief Complaint/Hosp Course IMP: 1.Post-op- s/p [facility]IP OR[facility] - 3. RBBB - likely chronic, negative troponios - Diast HF, chronic. 4 GERD - PPI to folllow 5. Pain - con't pain rx as needed 6. Diastolic dysfunction 7.Osteoporosis Recc: -Continue asa/statin -Continue low dose BB as tolerated only and follow labile BP closely -pain control -PT -Dose of lasix and follow volume status closely Problems: Consultation Date/Type/Reason Admit Date/Time Apr 16, 2017 at 12:42 Initial Consult Date 04/17/17 Type of Consultation: Cardiology Reason for Consultation HTN/pre-op Referring Provider: SHANNAN CAN Exam/Review of Systems Vital Signs Vitals Vital Signs Date Time Temp Pulse Resp B/P Pulse Ox O2 Delivery O2 Flow Rate FiO2 04/22/17 07:32 98.3 76 18 123/59 96 04/20/17 13:00 Nasal Cannula 04/18/17 16:53 3.0 Intake and Output 04/21/17 04/21/17 04/22/17 15:00 23:00 07:00 Intake Total 760 ml 580 ml Output Total 300 ml 950 ml Balance 460 ml -370 ml Exam Review of Systems: CONSTITUTIONAL: No fevers, chills. PULMONARY: No sob CARDIOVASCULAR: No chest pain/palpitations GASTROINTESTINAL: No nausea/vomiting. GENITOURINARY: No hematuria/dysuria. MUSCULOSKELETAL: Mild pain in hip PSYCHIATRIC: The patient denies depression. NEUROLOGIC: No weakness Constitutional: alert Psych: no complaints Head: normocephalic ENMT: mucosa pink and moist Neck: jvd (8-9 cm water), supple Respiratory: diminished breath sounds (at bases/B) Cardiovascular: regular rate and rhythm Gastrointestinal: non-tender, soft Musculoskeletal: muscle tone (normal) Extremities: edema Neurological: other (No focal deficits) Results Result Diagram: 04/21/17 9868 04/22/17 050 Results 24 hrs Laboratory Tests Test 04/22/17 05:01 Sodium Level 137 Potassium Level 4.1 Chloride Level 104 Carbon Dioxide Level 28 Anion Gap 9 # Blood Urea Nitrogen 11 Creatinine 0.64 Glucose Level 99 Calcium Level 8.0 L Medications Medications Current Medications Cyclosporine (Restasis) 1 drop Q12 BOTH EYES Last administered on 04/22/17 09: 02; Admin Dose 1 DROP; Start 04/16/17 at 21:00 Ergocalciferol (Drisdol) 50,000 unit Q7D PO ; Start 04/18/17 at 09:00 Risedronate (Actonel) 35 mg Q7D PO ; Start 04/23/17 at 06:00 Pantoprazole (Protonix Tab) 40 mg DAILY@06 PO Last administered on 04/22/17 05: 14; Admin Dose 40 MG; Start 04/17/17 at 06:00 Atorvastatin Calcium (Lipitor) 20 mg DAILY@21 PO Last administered on 04/21/17 21:16; Admin Dose 20 MG; Start 04/16/17 at 21:00 Morphine Sulfate (morphine) 2 mg Q4H PRN IV pain Last administered on 04/20/17 06:11; Admin Dose 2 MG; Start 04/16/17 at 18:00 Ondansetron HCl (Zofran Inj) 4 mg Q6H PRN IV NAUSEA AND/OR VOMITING; Start at 18:00 Acetaminophen/ Hydrocodone Bitart ([place] (5/325)) 1 tab Q6H PRN PO pain Last administered on 04/22/17 06:17; Admin Dose 1 TAB; Start 04/16/17 at 18:00 Docusate Sodium (Colace) 100 mg BID PRN PO CONSTIPATION; Start 04/16/17 at 18: 00 Polyethylene Glycol (Miralax) 8.5 gm DAILY PO Last administered on 04/22/17 09: 03; Admin Dose 8.5 GM; Start 04/17/17 at 09:00 Acetaminophen/ Hydrocodone Bitart ([place] (5/325)) 1 tab Q6H PRN PO PAIN; Start 04/18/17 at 15:00 Tramadol HCl (Ultram) 50 mg Q8H PRN PO PAIN; Start 04/18/17 at 15:00 Aspirin (Ecotrin) 325 mg BID PO Last administered on 04/21/17 21:16; Admin Dose 325 MG; Start 04/18/17 at 21:00 Metoprolol Tartrate (Lopressor) 12.5 mg DAILY PO ; Start 04/21/17 at 09:00 RL CONTRERAS Apr 22, 2017 11:23
[2017-04-22] MEDS ORDERED: FUROSEMIDE 20 MG INJ IV ONE (12:00)
--- NOTE | 2017-04-22 12:23 | PN ---
Date/Time of Note Date/Time of Note DATE: 04/22/17 TIME: 12:20 Assessment/Plan VTE Prophylaxis VTE Prophylaxis Intervention: LMWH Lines/Catheters [facility] Urinary Cath still in place: No Assessment/Plan Chief Complaint/Hosp Course Postop doing well Problems: Assessment/Plan 1. Acute L Hip fracture s/p left hip hemiarthroplasty 04/18/17 2. Chronic HTN: fairly good control 3. Osteoporosis 4. Dyslipidemia 5. GERD 6. Diastilic CHF, Chronic PLAN: s/p ORIF, now stable post op stable, tele rhythm, S/p Cardiology follow up downgraded to med/surge floor Lovenox for DVT prophylaxis, if okay with ortho d/c fajardo catheter Follow-up labs Subjective 24 Hr Interval Summary Free Text/Dictation Chart reviewed. Events noted. Fajardo catheter now out. Minimal bleeding at the operative site. Potassium was supplemented yesterday. Patient participating with physical therapy. Exam/Review of Systems Vital Signs Vitals Vital Signs Date Time Temp Pulse Resp B/P Pulse Ox O2 Delivery O2 Flow Rate FiO2 04/22/17 07:32 98.3 76 18 123/59 96 04/20/17 13:00 Nasal Cannula 04/18/17 16:53 3.0 Intake and Output 04/21/17 04/21/17 04/22/17 15:00 23:00 07:00 Intake Total 760 ml 580 ml Output Total 300 ml 950 ml Balance 460 ml -370 ml Exam Eyes: No discharge ENT: No bleeding, No congestion Respiratory: No shortness of breath Cardiovascular: No chest pain Gastrointestinal: No nausea, No vomiting Genitourinary: No bleeding Neurologic: No confusion Endocrine: No polyuria Lymphatic: No adenopathy Results Result Diagram: 04/21/17 0455 04/22/17 0501 Results 24 hrs Laboratory Tests Test 04/22/17 05:01 Sodium Level 137 Potassium Level 4.1 Chloride Level 104 Carbon Dioxide Level 28 Anion Gap 9 # Blood Urea Nitrogen 11 Creatinine 0.64 Glucose Level 99 Calcium Level 8.0 L Medications Medications Current Medications Cyclosporine (Restasis) 1 drop Q12 BOTH EYES Last administered on 04/22/17t 09: 02; Admin Dose 1 DROP; Start 04/16/17 at 21:00 Ergocalciferol (Drisdol) 50,000 unit Q7D PO ; Start 04/18/17 at 09:00 Risedronate (Actonel) 35 mg Q7D PO ; Start 04/23/17 at 06:00 Pantoprazole (Protonix Tab) 40 mg DAILY@06 PO Last administered on 04/22/17 05: 14; Admin Dose 40 MG; Start 04/17/17 at 06:00 Atorvastatin Calcium (Lipitor) 20 mg DAILY@21 PO Last administered on 04/21/17 21:16; Admin Dose 20 MG; Start 04/16/17 at 21:00 Morphine Sulfate (morphine) 2 mg Q4H PRN IV pain Last administered on 04/20/17 06:11; Admin Dose 2 MG; Start 04/16/17 at 18:00 Ondansetron HCl (Zofran Inj) 4 mg Q6H PRN IV NAUSEA AND/OR VOMITING; Start at 18:00 Acetaminophen/ Hydrocodone Bitart ([place] (5/325)) 1 tab Q6H PRN PO pain Last administered on 04/22/17 06:17; Admin Dose 1 TAB; Start 04/16/17 at 18:00 Docusate Sodium (Colace) 100 mg BID PRN PO CONSTIPATION; Start 04/16/17 at 18: 00 Polyethylene Glycol (Miralax) 8.5 gm DAILY PO Last administered on 04/22/17 09: 03; Admin Dose 8.5 GM; Start 04/17/17 at 09:00 Acetaminophen/ Hydrocodone Bitart ([place] (5/325)) 1 tab Q6H PRN PO PAIN; Start 04/18/17 at 15:00 Tramadol HCl (Ultram) 50 mg Q8H PRN PO PAIN; Start 04/18/17 at 15:00 Aspirin (Ecotrin) 325 mg BID PO Last administered on 04/21/17 21:16; Admin Dose 325 MG; Start 04/18/17 at 21:00 Metoprolol Tartrate (Lopressor) 12.5 mg DAILY PO ; Start 04/21/17 at 09:00 EVER MOORE MD Apr 22, 2017 12:23
[2017-04-22] MEDS: ENOXAPARIN 40 MG/0.4 ML SYG SC SCH (14:00)
[2017-04-22 19:58] VITALS: BP 108/50; RESP 20
[2017-04-22] MEDS: ATORVASTATIN 20 MG TAB PO SCH (21:32)
[2017-04-23 02:32] VITALS: BP 118/57; RESP 20
[2017-04-23 05:39] LABS: ADD SCAN DIFF NO
[2017-04-23] MEDS: PANTOPRAZOLE (EC) 40 MG TAB PO SCH (05:42)
[2017-04-23 05:46] LABS: BASOPHIL # 0.1 10^3/ul (0.0-0.1); BASOPHILS % 0.5 % (0.0-2.0); EOSINOPHILS # 0.5 10^3/ul (0.0-0.5); EOSINOPHILS % 5.5 % (0.0-7.0); HEMOGLOBIN 7.9 g/dl (12.0-16.0); LYMPHOCYTES # 1.2 10^3/ul (0.8-2.9); MEAN CORPUSCULAR HGB CONC 32.9 g/dl (32.0-37.0); MEAN CORPUSCULAR VOLUME 94.1 fl (82.0-101.0); MEAN PLATELET VOLUME 11.5 fl (7.4-10.4); MONOCYTE # 1.3 10^3/ul (0.3-0.9); MONOCYTES % 13.2 % (0.0-11.0); NEUTROPHIL # 6.4 10^3/ul (1.6-7.5); NEUTROPHILS % 66.7 % (39.0-77.0); PLATELET COUNT 413 10^3/UL (140-415); RED BLOOD COUNT 2.55 10^6/ul (4.20-5.40); RED CELL DISTRIBUTION WIDTH 15.9 % (11.5-14.5); WHITE BLOOD COUNT 9.6 10^3/ul (4.8-10.8)
[2017-04-23] MEDS ORDERED: RISEDRONATE 35 MG TAB PO SCH (06:00)
[2017-04-23 08:13] VITALS: BP 124/60; RESP 18
[2017-04-23] MEDS: CYCLOSPORINE 0.05% OPH DROPERETTE BOTH EYES SCH ×2 (09:20→20:21)
[2017-04-23] MEDS: ASPIRIN (EC) 325 MG TAB PO SCH ×2 (09:20→20:12)
[2017-04-23] MEDS: METOPROLOL 25 MG TAB PO SCH (09:22)
[2017-04-23] MEDS: POLYETHYLENE GLYCOL 17 GM PACKET PO SCH (09:22)
[2017-04-23] MEDS: ENOXAPARIN 40 MG/0.4 ML SYG SC SCH (09:49)
--- NOTE | 2017-04-23 11:04 | PN ---
Date/Time of Note Date/Time of Note DATE: 04/23/17 TIME: 11:03 Assessment/Plan VTE Prophylaxis VTE Prophylaxis Intervention: LMWH Lines/Catheters IV [facility] (from [facility] [facility] Urinary Cath still in place: No Assessment/Plan Assessment/Plan 1. Acute L Hip fracture s/p left hip hemiarthroplasty 04/18/17 2. Chronic HTN: fairly good control 3. Osteoporosis 4. Dyslipidemia 5. GERD 6. Diastilic CHF, Chronic PLAN: s/p ORIF, now stable post op stable, tele rhythm, S/p Cardiology follow up Lovenox for DVT prophylaxis d/c to acute rehab when bed available Subjective 24 Hr Interval Summary Free Text/Dictation no acute events, acute rehab accepted pt , BP stable Exam/Review of Systems Vital Signs Vitals Vital Signs Date Time Temp Pulse Resp B/P Pulse Ox O2 Delivery O2 Flow Rate FiO2 04/23/17 08:13 99.2 76 18 124/60 94 04/20/17 13:00 Nasal Cannula Intake and Output 04/22/17 04/22/17 04/23/17 15:00 23:00 07:00 Intake Total 1920 ml 240 ml Output Total 1400 ml 450 ml Balance 520 ml -210 ml Exam Psych: no complaints Head: normocephalic Neck: supple Respiratory: clear to auscultation Cardiovascular: regular rate and rhythm Gastrointestinal: soft Musculoskeletal: nl extremities to inspection Neurological: [employer] II-XII intact Results Result Diagram: 04/23/17 0454 04/22/17 0501 Results 24 hrs Laboratory Tests Test 04/23/17 04:54 White Blood Count 9.6 Red Blood Count 2.55 L Hemoglobin 7.9 L Hematocrit 24.0 L Mean Corpuscular Volume 94.1 Mean Corpuscular Hemoglobin 31.0 Mean Corpuscular Hemoglobin Concent 32.9 Red Cell Distribution Width 15.9 H Platelet Count 413 # Mean Platelet Volume 11.5 H Neutrophils % 66.7 Lymphocytes % 13.0 L Monocytes % 13.2 H Eosinophils % 5.5 Basophils % 0.5 Nucleated Red Blood Cells % 0.0 Neutrophils # 6.4 Lymphocytes # 1.2 Monocytes # 1.3 H Eosinophils # 0.5 Basophils # 0.1 Nucleated Red Blood Cells # 0.0 Medications Medications Current Medications Cyclosporine (Restasis) 1 drop Q12 BOTH EYES Last administered on 04/23/17 09: 20; Admin Dose 1 DROP; Start 04/16/17 at 21:00 Ergocalciferol (Drisdol) 50,000 unit Q7D PO ; Start 04/18/17 at 09:00 Risedronate (Actonel) 35 mg Q7D PO Last administered on 04/23/17 05:42; Admin Dose 35 MG; Start 04/23/17 at 06:00 Pantoprazole (Protonix Tab) 40 mg DAILY@06 PO Last administered on 04/23/17 05: 42; Admin Dose 40 MG; Start 04/17/17 at 06:00 Atorvastatin Calcium (Lipitor) 20 mg DAILY@21 PO Last administered on 04/22/17 21:32; Admin Dose 20 MG; Start 04/16/17 at 21:00 Morphine Sulfate (morphine) 2 mg Q4H PRN IV pain Last administered on 04/20/17 06:11; Admin Dose 2 MG; Start 04/16/17 at 18:00 Ondansetron HCl (Zofran Inj) 4 mg Q6H PRN IV NAUSEA AND/OR VOMITING; Start at 18:00 Acetaminophen/ Hydrocodone Bitart ([place] (5/325)) 1 tab Q6H PRN PO pain Last administered on 04/22/17 18:55; Admin Dose 1 TAB; Start 04/16/17 at 18:00 Docusate Sodium (Colace) 100 mg BID PRN PO CONSTIPATION; Start 04/16/17 at 18: 00 Polyethylene Glycol (Miralax) 8.5 gm DAILY PO Last administered on 04/23/17 09: 22; Admin Dose 8.5 GM; Start 04/17/17 at 09:00 Acetaminophen/ Hydrocodone Bitart ([place] (5/325)) 1 tab Q6H PRN PO PAIN; Start 04/18/17 at 15:00 Tramadol HCl (Ultram) 50 mg Q8H PRN PO PAIN; Start 04/18/17 at 15:00 Aspirin (Ecotrin) 325 mg BID PO Last administered on 04/23/17 09:20; Admin Dose 325 MG; Start 04/18/17 at 21:00 Metoprolol Tartrate (Lopressor) 12.5 mg DAILY PO Last administered on 04/23/17 09:22; Admin Dose 12.5 MG; Start 04/21/17 at 09:00 Enoxaparin Sodium (Lovenox) 40 mg DAILY SC Last administered on 04/23/17 09:49 ; Admin Dose 40 MG; Start 04/22/17 at 14:00 MALACHI PICKERING MD Apr 23, 2017 11:04
--- NOTE | 2017-04-23 11:06 | PDOCDIS ---
Discharge Instructions CONDITION Patient Condition: Good HOME CARE INSTRUCTIONS: Special Diet: regular diet ACTIVITY: Activity Restrictions: Slowly Increase Activity Rest between Activity Avoid heavy lifting Avoid Heavy Housework FOLLOW UP/APPOINTMENTS Follow-up Plan follow up with physician at acute rehab unit. Follow up with Orthopedic Dr. Wilian Dickerson in 1-2 week after dischrge from Acute rehab MALACHI PICKERING MD Apr 23, 2017 11:06
--- NOTE | 2017-04-23 12:29 | CONS ---
Date/Time of Note Date/Time of Note DATE: 04/23/17 TIME: 12:26 Assessment/Plan Assessment/Plan Chief Complaint/Hosp Course IMP: 1.Post-op- s/p HIP ORIF [facility] 3. RBBB - likely chronic, negative troponins - Diast HF, chronic. 4 GERD - PPI to folllow 5. Pain - con't pain rx as needed 6. Diastolic dysfunction 7.Osteoporosis Recc: -Continue asa/statin -Continue low dose BB as tolerated only and follow labile BP closely -pain control -PT -Spot dose lasix as necessary and follow volume status closely -Possible inpatient rehab transfer Problems: Consultation Date/Type/Reason Admit Date/Time Apr 16, 2017 at 12:42 Initial Consult Date 04/17/17 Type of Consultation: Cardiology Reason for Consultation HTN Referring Provider: SHANNAN CAN Exam/Review of Systems Vital Signs Vitals Vital Signs Date Time Temp Pulse Resp B/P Pulse Ox O2 Delivery O2 Flow Rate FiO2 04/23/17 08:13 99.2 76 18 124/60 94 04/20/17 13:00 Nasal Cannula Intake and Output 04/22/17 04/22/17 04/23/17 15:00 23:00 07:00 Intake Total 1920 ml 240 ml Output Total 1400 ml 450 ml Balance 520 ml -210 ml Exam Review of Systems: CONSTITUTIONAL: No fevers, chills. PULMONARY: No sob CARDIOVASCULAR: No chest pain/palpitations GASTROINTESTINAL: No nausea/vomiting. GENITOURINARY: No hematuria/dysuria. MUSCULOSKELETAL: mild pain in hip PSYCHIATRIC: The patient denies depression. NEUROLOGIC: No weakness Constitutional: alert Psych: no complaints Head: normocephalic ENMT: mucosa pink and moist Neck: jvd (9 cm water), supple Respiratory: diminished breath sounds (at bases/B) Cardiovascular: regular rate and rhythm Gastrointestinal: non-tender, soft Musculoskeletal: muscle weakness (mild generalized) Extremities: edema (trace/B) Neurological: other (No focal deficits) Results Result Diagram: 04/23/17 0454 04/22/17 0508 Results 24 hrs Laboratory Tests Test 04/23/17 04:54 White Blood Count 9.6 Red Blood Count 2.55 L Hemoglobin 7.9 L Hematocrit 24.0 L Mean Corpuscular Volume 94.1 Mean Corpuscular Hemoglobin 31.0 Mean Corpuscular Hemoglobin Concent 32.9 Red Cell Distribution Width 15.9 H Platelet Count 413 # Mean Platelet Volume 11.5 H Neutrophils % 66.7 Lymphocytes % 13.0 L Monocytes % 13.2 H Eosinophils % 5.5 Basophils % 0.5 Nucleated Red Blood Cells % 0.0 Neutrophils # 6.4 Lymphocytes # 1.2 Monocytes # 1.3 H Eosinophils # 0.5 Basophils # 0.1 Nucleated Red Blood Cells # 0.0 Medications Medications Current Medications Cyclosporine (Restasis) 1 drop Q12 BOTH EYES Last administered on 04/23/17 09: 20; Admin Dose 1 DROP; Start 04/16/17 at 21:00 Ergocalciferol (Drisdol) 50,000 unit Q7D PO ; Start 04/18/17 at 09:00 Risedronate (Actonel) 35 mg Q7D PO Last administered on 04/23/17 05:42; Admin Dose 35 MG; Start 04/23/17 at 06:00 Pantoprazole (Protonix Tab) 40 mg DAILY@06 PO Last administered on 04/23/17 05: 42; Admin Dose 40 MG; Start 04/17/17 at 06:00 Atorvastatin Calcium (Lipitor) 20 mg DAILY@21 PO Last administered on 04/22/17 21:32; Admin Dose 20 MG; Start 04/16/17 at 21:00 Morphine Sulfate (morphine) 2 mg Q4H PRN IV pain Last administered on 04/20/17 06:11; Admin Dose 2 MG; Start 04/16/17 at 18:00 Ondansetron HCl (Zofran Inj) 4 mg Q6H PRN IV NAUSEA AND/OR VOMITING; Start at 18:00 Acetaminophen/ Hydrocodone Bitart ([place] (5/325)) 1 tab Q6H PRN PO pain Last administered on 04/22/17 18:55; Admin Dose 1 TAB; Start 04/16/17 at 18:00 Docusate Sodium (Colace) 100 mg BID PRN PO CONSTIPATION; Start 04/16/17 at 18: 00 Polyethylene Glycol (Miralax) 8.5 gm DAILY PO Last administered on 04/23/17 09: 22; Admin Dose 8.5 GM; Start 7/1/17 at 09:00 Acetaminophen/ Hydrocodone Bitart ([place] (5/325)) 1 tab Q6H PRN PO PAIN; Start 04/18/17 at 15:00 Tramadol HCl (Ultram) 50 mg Q8H PRN PO PAIN; Start 04/18/17 at 15:00 Aspirin (Ecotrin) 325 mg BID PO Last administered on 04/23/17 09:20; Admin Dose 325 MG; Start 04/18/17 at 21:00 Metoprolol Tartrate (Lopressor) 12.5 mg DAILY PO Last administered on 04/23/17 09:22; Admin Dose 12.5 MG; Start 04/21/17 at 09:00 Enoxaparin Sodium (Lovenox) 40 mg DAILY SC Last administered on 04/23/17 09:49 ; Admin Dose 40 MG; Start 04/22/17 at 14:00 RL CONTRERAS Apr 23, 2017 12:28
--- NOTE | 2017-04-23 17:10 | PN ---
Date/Time of Note Date/Time of Note DATE: 04/23/17 TIME: 17:09 Assessment/Plan VTE Prophylaxis VTE Prophylaxis Intervention: LMWH Lines/Catheters [facility] Lock Urinary Cath still in place: No Assessment/Plan Assessment/Plan 1. Acute L Hip fracture s/p left hip hemiarthroplasty 04/18/17 2. Chronic HTN: fairly good control 3. Osteoporosis 4. Dyslipidemia 5. GERD 6. Diastilic CHF, Chronic PLAN: s/p ORIF, now stable post op stable, tele rhythm, S/p Cardiology follow up Hb 7.9- no plan for blood transfusino as per othopedic unless Hb <7.5 Lovenox for DVT prophylaxis d/c to ARU Today Subjective 24 Hr Interval Summary Free Text/Dictation doing ok, BP stable, afebrile, Hb 7.9 Exam/Review of Systems Vital Signs Vitals Vital Signs Date Time Temp Pulse Resp B/P Pulse Ox O2 Delivery O2 Flow Rate FiO2 04/23/17 08:13 99.2 76 18 124/60 94 04/20/17 13:00 Nasal Cannula Intake and Output 04/22/17 04/22/17 04/23/17 15:00 23:00 07:00 Intake Total 1920 ml 240 ml Output Total 1400 ml 450 ml Balance 520 ml -210 ml Exam Psych: no complaints Head: normocephalic Neck: supple Respiratory: clear to auscultation Cardiovascular: regular rate and rhythm Gastrointestinal: soft Musculoskeletal: nl extremities to inspection Neurological: [employer] II-XII intact Results Result Diagram: 04/23/17 0454 04/22/17 0501 Results 24 hrs Laboratory Tests Test 04/23/17 04:54 White Blood Count 9.6 Red Blood Count 2.55 L Hemoglobin 7.9 L Hematocrit 24.0 L Mean Corpuscular Volume 94.1 Mean Corpuscular Hemoglobin 31.0 Mean Corpuscular Hemoglobin Concent 32.9 Red Cell Distribution Width 15.9 H Platelet Count 413 # Mean Platelet Volume 11.5 H Neutrophils % 66.7 Lymphocytes % 13.0 L Monocytes % 13.2 H Eosinophils % 5.5 Basophils % 0.5 Nucleated Red Blood Cells % 0.0 Neutrophils # 6.4 Lymphocytes # 1.2 Monocytes # 1.3 H Eosinophils # 0.5 Basophils # 0.1 Nucleated Red Blood Cells # 0.0 Medications Medications Current Medications Cyclosporine (Restasis) 1 drop Q12 BOTH EYES Last administered on 04/23/17 09: 20; Admin Dose 1 DROP; Start 04/16/17 at 21:00 Ergocalciferol (Drisdol) 50,000 unit Q7D PO ; Start 04/18/17 at 09:00 Risedronate (Actonel) 35 mg Q7D PO Last administered on 04/23/17 05:42; Admin Dose 35 MG; Start 04/23/17 at 06:00 Pantoprazole (Protonix Tab) 40 mg DAILY@06 PO Last administered on 04/23/17 05: 42; Admin Dose 40 MG; Start 04/17/17 at 06:00 Atorvastatin Calcium (Lipitor) 20 mg DAILY@21 PO Last administered on 04/22/17 21:32; Admin Dose 20 MG; Start 04/16/17 at 21:00 Morphine Sulfate (morphine) 2 mg Q4H PRN IV pain Last administered on 04/20/17 06:11; Admin Dose 2 MG; Start 04/16/17 at 18:00 Ondansetron HCl (Zofran Inj) 4 mg Q6H PRN IV NAUSEA AND/OR VOMITING; Start at 18:00 Acetaminophen/ Hydrocodone Bitart ([place] (5/325)) 1 tab Q6H PRN PO pain Last administered on 04/22/17 18:55; Admin Dose 1 TAB; Start 04/16/17 at 18:00 Docusate Sodium (Colace) 100 mg BID PRN PO CONSTIPATION; Start 04/16/17 at 18: 00 Polyethylene Glycol (Miralax) 8.5 gm DAILY PO Last administered on 04/23/17 09: 22; Admin Dose 8.5 GM; Start 04/17/17 at 09:00 Acetaminophen/ Hydrocodone Bitart ([place] (5/325)) 1 tab Q6H PRN PO PAIN; Start 04/18/17 at 15:00 Tramadol HCl (Ultram) 50 mg Q8H PRN PO PAIN; Start 04/18/17 at 15:00 Aspirin (Ecotrin) 325 mg BID PO Last administered on 04/23/17 09:20; Admin Dose 325 MG; Start 04/18/17 at 21:00 Metoprolol Tartrate (Lopressor) 12.5 mg DAILY PO Last administered on 04/23/17 09:22; Admin Dose 12.5 MG; Start 04/21/17 at 09:00 Enoxaparin Sodium (Lovenox) 40 mg DAILY SC Last administered on 04/23/17 09:49 ; Admin Dose 40 MG; Start 04/22/17 at 14:00 MALACHI PICKERING MD Apr 23, 2017 17:10
[2017-04-23 20:00] VITALS: BP 126/68; PULSE 73; RESP 18
[2017-04-23] MEDS: ATORVASTATIN 20 MG TAB PO SCH (20:12)
[2017-04-23] MEDS: HYDROCODONE/APAP (5/325) TAB PO PRN (20:14)
== END 2017-04-23 20:50 | DRG 470 ==
LOC: E/R 11:07 → MS1 12:42 → TEL 04-18 17:16 → MS2 04-20 12:50
PROVIDERS: ADMIT Family Medicine; ATTEND Family Medicine
PROC: 0SRS0JA Replacement of Left Hip Joint, Femoral Surface with Synthetic Substitute, Uncemented, Open Approach (ICD-10-PCS; principal; 2017-04-18 12:04)
DX: S72.092A Other fracture of head and neck of left femur, initial encounter for closed fracture (principal); I11.0 Hypertensive heart disease with heart failure; I50.32 Chronic diastolic (congestive) heart failure; I45.10 Unspecified right bundle-branch block; W19.XXXA Unspecified fall, initial encounter; Y92.009 Unspecified place in unspecified non-institutional (private) residence as the place of occurrence of the external cause; M81.0 Age-related osteoporosis without current pathological fracture; K21.9 Gastro-esophageal reflux disease without esophagitis; E78.5 Hyperlipidemia, unspecified
CPT/HCPCS: 71010; 72170; 73500; 73510; 80048; 80053; 80061; 80076; 82550; 82553; 83036; 83735; 84443; 84484; 85025; 85610; 85730; 86850; 86900; 86901; 88304; 88311; 93005; 93306; 96374; 96375; 97110; 97116; 97162; 97530; J1940; C1776; J0690; J1200; J1650; J2250; J2270; J2274; J2405; J2710; J2765; J3010; J7030; J7040

== ENCOUNTER 2017-04-22 21:24 | Inpatient (IN) | payer MEDICARE, OTHER ==
[~2017-04-22] VITALS: Ht 142.2 cm; Wt 59.0 kg
[~2017-04-22 21:24] MED LIST changes: +ACT35 PO; -ATELVIA; +CYCL1DRO BOTH EYES; +ESOM40CA PO; -MELO-110 PO; +METO-429 PO; -OMEP20CA16 PO; +SIMV40TA3 PO; -SMV40T PO; -apap/codeine
[2017-04-23 21:30] VITALS: BP 139/50; PULSE 77; RESP 16
[2017-04-23 22:15] VITALS: Ht 142.2 cm; Wt 59.0 kg
[2017-04-24] MEDS ORDERED: DOCUSATE SODIUM 100 MG CAP PO PRN (01:00)
[2017-04-24] MEDS ORDERED: traMADol 50 MG TAB PO PRN (01:00)
[2017-04-24] MEDS ORDERED: ONDANSETRON 4 MG TAB PO PRN (01:00)
[2017-04-24 01:40] LABS: ADD UMIC YES; UR ASCORBIC ACID NEGATIVE (NEGATIVE); UR BACTERIA FEW /HPF (NONE SEEN); UR BILIRUBIN (Dip) NEGATIVE (NEGATIVE); UR BLOOD (Dip) 1+ mg/dL (NEGATIVE); UR CLARITY SLIGHTLY CLOUDY (CLEAR); UR COLOR YELLOW (YELLOW); UR GLUCOSE (Dip) NEGATIVE (NEGATIVE); UR KETONES (Dip) NEGATIVE (NEGATIVE); UR LEUKOCYTE ESTERASE (Dip) 3+ Leu/ul (NEGATIVE); UR NITRITE (Dip) POSITIVE (NEGATIVE); UR RBC 4 /HPF (0-5); UR TOTAL PROTEIN (Dip) NEGATIVE (NEGATIVE); UR UROBILINOGEN (Dip) 2+ mg/dL (NEGATIVE)
[2017-04-24] MEDS ORDERED: BISACODYL 10 MG SUPP PR PRN (04:00)
[2017-04-24] MEDS ORDERED: LACTULOSE 30ML CUP PO PRN (04:00)
[2017-04-24] MEDS ORDERED: MAGNESIUM HYDROXIDE 30ML CUP PO PRN (04:00)
[2017-04-24] MEDS ORDERED: ACETAMINOPHEN 325 MG TAB PO PRN (04:00)
[2017-04-24] MEDS: HYDROCODONE/APAP (5/325) TAB PO PRN ×3 (06:22→20:28)
[2017-04-24] MEDS: PANTOPRAZOLE (EC) 40 MG TAB PO SCH (06:22)
[2017-04-24 07:10] LABS: ADD SCAN DIFF NO
[2017-04-24 07:16] LABS: BASOPHIL # 0.1 10^3/ul (0.0-0.1); BASOPHILS % 0.9 % (0.0-2.0); EOSINOPHILS # 0.4 10^3/ul (0.0-0.5); EOSINOPHILS % 3.8 % (0.0-7.0); HEMATOCRIT 24.1 % (37.0-47.0); HEMOGLOBIN 7.9 g/dl (12.0-16.0); LYMPHOCYTES # 1.6 10^3/ul (0.8-2.9); LYMPHOCYTES % 16.4 % (15.0-51.0); MEAN CORPUSCULAR HEMOGLOBIN 31.2 pg (29.0-33.0); MEAN CORPUSCULAR HGB CONC 32.8 g/dl (32.0-37.0); MEAN CORPUSCULAR VOLUME 95.3 fl (82.0-101.0); MONOCYTES % 10.1 % (0.0-11.0); NEUTROPHIL # 6.6 10^3/ul (1.6-7.5); NEUTROPHILS % 67.3 % (39.0-77.0); PLATELET COUNT 455 10^3/UL (140-415); RED BLOOD COUNT 2.53 10^6/ul (4.20-5.40); RED CELL DISTRIBUTION WIDTH 16.1 % (11.5-14.5); WHITE BLOOD COUNT 9.8 10^3/ul (4.8-10.8)
[2017-04-24 07:30] VITALS: BP 112/57; RESP 18
[2017-04-24 07:34] LABS: ALBUMIN 2.9 g/dl (3.3-4.9); ALBUMIN/GLOBULIN RATIO 1.38; BILIRUBIN,INDIRECT 0.5 mg/dl (0-1.1); BILIRUBIN,TOTAL 0.5 mg/dl (0.2-1.3); CALCIUM 8.4 mg/dl (8.4-10.2); CREATININE 0.57 mg/dl (0.44-1.00); POTASSIUM 3.5 mmol/L (3.5-5.1)
--- NOTE | 2017-04-24 08:20 | CONS ---
Date/Time of Note Date/Time of Note DATE: 04/24/17 TIME: 08:17 Assessment/Plan Assessment/Plan Chief Complaint/Hosp Course IMP: 1.Post-op- s/p HIP ORIF 2.HTN - reasonable control 3. RBBB - likely chronic, negative troponins - Diast HF, chronic. 4 GERD - PPI to folllow 5. Pain - con't pain rx as needed 6. Diastolic dysfunction-reasonable volume status 7.Osteoporosis Recc: -Now transferred to inpatient rehab -Continue asa/statin -Continue low dose BB as tolerated only and follow labile BP closely -pain control -PT -Spot dose lasix as necessary and follow volume status closely Problems: Consultation Date/Type/Reason Admit Date/Time Apr 23, 2017 at 21:16 Initial Consult Date 04/24/17 Type of Consultation: cardiology Reason for Consultation HTN Referring Provider: SHANNAN CAN Exam/Review of Systems Vital Signs Vitals Vital Signs Date Time Temp Pulse Resp B/P Pulse Ox O2 Delivery O2 Flow Rate FiO2 04/23/17 21:30 98.1 77 16 139/50 Room Air Intake and Output 04/23/17 04/23/17 04/24/17 15:00 23:00 07:00 Intake Total 200 ml Balance 200 ml Exam Review of Systems: CONSTITUTIONAL: No fevers, chills. PULMONARY: No sob CARDIOVASCULAR: No chest pain/palpitations GASTROINTESTINAL: No nausea/vomiting. GENITOURINARY: No hematuria/dysuria. MUSCULOSKELETAL: No myagias/arthalgias. PSYCHIATRIC: The patient denies depression. NEUROLOGIC: No weakness Constitutional: alert Psych: no complaints Head: normocephalic ENMT: mucosa pink and moist Neck: jvd (9 cm water), supple Respiratory: diminished breath sounds (at bases/B) Cardiovascular: regular rate and rhythm Gastrointestinal: non-tender, soft Musculoskeletal: muscle weakness (mild generalized) Extremities: edema (none) Neurological: other (No focal deficits) Results Result Diagram: 04/24/17 0616 04/24/17 0616 Results 24 hrs Laboratory Tests Test 04/23/17 23:30 04/24/17 06:16 Urine Color YELLOW Urine Clarity SLIGHTLY CLOUDY A Urine pH 5.0 Urine Specific [place] 1.010 Urine Ketones NEGATIVE Urine Nitrite POSITIVE A Urine Bilirubin NEGATIVE Urine Urobilinogen 2+ H Urine Leukocyte Esterase 3+ H Urine Microscopic RBC 4 Urine Microscopic WBC 105 H Urine Bacteria FEW A Urine Hemoglobin 1+ H Urine Glucose NEGATIVE Urine Total Protein NEGATIVE White Blood Count 9.8 Red Blood Count 2.53 L Hemoglobin 7.9 L Hematocrit 24.1 L Mean Corpuscular Volume 95.3 Mean Corpuscular Hemoglobin 31.2 Mean Corpuscular Hemoglobin Concent 32.8 Red Cell Distribution Width 16.1 H Platelet Count 455 H Mean Platelet Volume 12.0 H Neutrophils % 67.3 Lymphocytes % 16.4 Monocytes % 10.1 Eosinophils % 3.8 Basophils % 0.9 Nucleated Red Blood Cells % 0.0 Neutrophils # 6.6 Lymphocytes # 1.6 Monocytes # 1.0 H Eosinophils # 0.4 Basophils # 0.1 Nucleated Red Blood Cells # 0.0 Sodium Level 141 Potassium Level 3.5 Chloride Level 102 Carbon Dioxide Level 29 Anion Gap 14 Blood Urea Nitrogen 12 Creatinine 0.57 Glucose Level 98 Calcium Level 8.4 Total Bilirubin 0.5 Direct Bilirubin 0.00 Indirect Bilirubin 0.5 Aspartate Amino Transf (AST/SGOT) 28 Alanine Aminotransferase (ALT/SGPT) 40 Alkaline Phosphatase 70 Total Protein 5.0 L Albumin 2.9 L Globulin 2.10 Albumin/Globulin Ratio 1.38 Medications Medications Current Medications Polyethylene Glycol (Miralax) 8.5 gm DAILY PO ; Start 04/24/17 at 09:00 Tramadol HCl (Ultram) 50 mg Q8H PRN PO PAIN; Start 04/24/17 at 01:00 Risedronate (Actonel) 35 mg Fr@0705 PO ; Start 04/30/17 at 07:05 Acetaminophen/ Hydrocodone Bitart ([place] (5/325)) 1 tab Q6H PRN PO PAIN Last administered on 04/24/17 06:22; Admin Dose 1 TAB; Start 04/24/17 at 01:00 Metoprolol Tartrate (Lopressor) 12.5 mg DAILY PO ; Start 04/24/17 at 09:00 Pantoprazole (Protonix Tab) 40 mg DAILY@06 PO Last administered on 04/24/17 06: 22; Admin Dose 40 MG; Start 04/24/17 at 06:00 Ondansetron HCl (Zofran Tab) 4 mg Q6H PRN PO NAUSEA AND/OR VOMITING; Start 04/24 at 01:00 Aspirin (Ecotrin) 325 mg BID PO ; Start 04/24/17 at 09:00 Atorvastatin Calcium (Lipitor) 20 mg DAILY@21 PO ; Start 04/24/17 at 21:00 Cyclosporine (Restasis) 1 drop Q12 BOTH EYES ; Start 04/24/17 at 09:00 Docusate Sodium (Colace) 100 mg BID PRN PO CONSTIPATION; Start 04/24/17 at 01:00 Enoxaparin Sodium (Lovenox) 40 mg DAILY SC ; Start 04/24/17 at 09:00 Ergocalciferol (Drisdol) 50,000 unit [place]@09 PO ; Start 04/25/17 at 09:00 Acetaminophen (Tylenol Tab) 650 mg Q4H PRN PO PAIN; Start 04/24/17 at 04:00 Bisacodyl (Dulcolax Supp) 10 mg DAILY PRN [place] CONSTIPATION; Start 04/24/17 at 04: 00 Magnesium Hydroxide (Milk Of Mag) 30 ml BID PRN PO CONSTIPATION; Start 04/24/17 at 04:00 Lactulose (Enulose) 20 gm DAILY PRN PO CONSTIPATION; Start 04/24/17 at 04:00 RL CONTRERAS Apr 24, 2017 08:20
[2017-04-24] MEDS: ASPIRIN (EC) 325 MG TAB PO SCH ×2 (08:25→20:25)
[2017-04-24] MEDS: POLYETHYLENE GLYCOL 17 GM PACKET PO SCH (08:26)
[2017-04-24] MEDS: METOPROLOL 25 MG TAB PO SCH (08:27)
[2017-04-24] MEDS: ENOXAPARIN 40 MG/0.4 ML SYG SC SCH (08:31)
[2017-04-24] MEDS: CYCLOSPORINE 0.05% OPH DROPERETTE BOTH EYES SCH ×3 (08:31→20:25)
[2017-04-24 08:36] VITALS: BP 110/53; PULSE 74; RESP 16
--- NOTE | 2017-04-24 09:19 | CONS ---
Date/Time of Note Date/Time of Note DATE: 04/24/17 TIME: 09:17 Assessment/Plan Assessment/Plan Additional Assessment/Plan REHABILITATION POST ADMISSION PHYSICIAN EVALUATION REHABILITATION IMPAIRMENT CODE: Left displaced femoral neck fracture, s/p hemiarthroplasty ACTIVE COMORBIDITIES: 1. Acute Pain syndrome 2. Hypertension 3. GERD 4. Dyslipidemia 5. Osteoporosis 6. Impairments in self care and mobility PLAN: The patient has been admitted for comprehensive interdisciplinary acute rehab and is anticipated to tolerate 3 hours of daily therapy in divided doses for at least 5/7 days a week. The treatment plan will include: 1. Physical therapy to focus on bed mobility, transfers, and household ambulation with the goal of having the patient reach a standby assist level. 2. Occupational therapy to focus on hygiene, grooming, dressing, bathing, and toileting activities with the goal of having the patient reach a standby assist level. 3. Rehabilitation nursing for carryover of therapeutic interventions, the goal of continent of bowel and bladder, pain under adequate control, and patient and family education with regards to the aforementioned issues ESTIMATED LENGTH OF STAY: 14 days. DISPOSITION GOAL: Home. Rehabilitation Barrier: pain Intervention for barrier: interdisciplinary rehabilitation I acknowledge that I performed a full physical examination on this patient within 24 hours of admission to the rehabilitation unit and believe the patient is a good candidate for comprehensive interdisciplinary rehab care and is anticipated to make reasonable goals in a reasonable period of time as outlined above. Consultation Date/Type/Reason Admit Date/Time Apr 23, 2017 at 21:16 Reason for Consultation Rehabilitation post admission physician evaluation Hx of Present Illness Patient is a pleasant 81-year-old female with a history of hypertension gastroesophageal GE reflux disease and CHF who is status post a mechanical fall with resultant left displaced femoral neck fracture. Patient underwent left hip hemiarthroplasty with postoperative course notable for pain in addition to significant impairments in self-care mobility as compared to baseline. Patient has been cleared to transfer to the rehabilitation unit for conference of interdisciplinary rehab care Psychological: no complaints Past Surgical History Past medical history: Hypertension, osteoporosis, dyslipidemia, gastroesophageal reflux disease, diastolic heart failure Social history: Patient lives at home and has supportive family and hopes to return there upon discharge Functional history: Prior to recent events patient is independent self-care tasks and mobility Current functional: Moderate assist for self-care mobility tasks I have reviewed the preadmission screen patient's current functional status is consistent with the preadmission screen Past Surgical Hx: no surgical history Social History Smoking Status: Never smoker Exam/Review of Systems Vital Signs Vitals Vital Signs Date Time Temp Pulse Resp B/P Pulse Ox O2 Delivery O2 Flow Rate FiO2 04/24/17 08:36 98.4 74 16 110/53 95 Room Air Intake and Output 04/23/17 04/23/17 04/24/17 15:00 23:00 07:00 Intake Total 200 ml Balance 200 ml Exam Constitutional: alert Psych: No anxiety, No confusion, No depression, No nl mood/affect, No no complaints, No other, No suicidal Head: No atraumatic, No hematomas, No lacerations, No normocephalic, No other Eyes: No EOMI, No PERRL, No fundi, disc, No icteric, No nl conjunctiva, No nl lids, No nl sclera, No other ENMT: No intubated, No mucosa pink and moist, No nl external ears & nose, No nl lips & teeth, No nl nasal mucosa & septum, No other, No tympanic membranes Neck: No bruits, No jvd, No masses, No non-tender, No nuchal rigidity, No other , No supple, No thyromegaly Respiratory: No clear to auscultation, No congested cough, No crackles/rales, No diminished breath sounds, No intercostal retraction, No labored breathing, No normal air movement, No other, No respirations, No tactile fremitus, No wheezing Cardiovascular: No S3, No S4, No bruits, No diastolic murmur, No edema, No gallop, No irregular rhythm, No jugular venous distention (JVD), No murmurs/ extra sounds, No nl pulses, No other, No regular rate and rhythm, No rub, No systolic murmur Gastrointestinal: No ascites, No bowel sounds, No distended, No firm, No hepatomegaly, No mass, No nl liver, spleen, No non-tender, No other, No rebound or guarding, No soft, No splenomegaly, No surgical scars, No tender Genitourinary - Female: No CMT, No CVA tenderness, No nl adnexae, No nl external genitalia, No other, No uterus Neurological: other (Patient awake and alert and oriented 3, she can follow simple one-step commands, she demonstrates good strength in bilateral upper extremity, and right lower extremity. Dorsiflexion and plantar flexion intact on the left) Results Result Diagram: 04/24/17 0616 04/24/17 0616 Results 24 hrs Laboratory Tests Test 04/23/17 23:30 04/24/17 06:16 Urine Color YELLOW Urine Clarity SLIGHTLY CLOUDY A Urine pH 5.0 Urine Specific [place] 1.010 Urine Ketones NEGATIVE Urine Nitrite POSITIVE A Urine Bilirubin NEGATIVE Urine Urobilinogen 2+ H Urine Leukocyte Esterase 3+ H Urine Microscopic RBC 4 Urine Microscopic WBC 105 H Urine Bacteria FEW A Urine Hemoglobin 1+ H Urine Glucose NEGATIVE Urine Total Protein NEGATIVE White Blood Count 9.8 Red Blood Count 2.53 L Hemoglobin 7.9 L Hematocrit 24.1 L Mean Corpuscular Volume 95.3 Mean Corpuscular Hemoglobin 31.2 Mean Corpuscular Hemoglobin Concent 32.8 Red Cell Distribution Width 16.1 H Platelet Count 455 H Mean Platelet Volume 12.0 H Neutrophils % 67.3 Lymphocytes % 16.4 Monocytes % 10.1 Eosinophils % 3.8 Basophils % 0.9 Nucleated Red Blood Cells % 0.0 Neutrophils # 6.6 Lymphocytes # 1.6 Monocytes # 1.0 H Eosinophils # 0.4 Basophils # 0.1 Nucleated Red Blood Cells # 0.0 Sodium Level 141 Potassium Level 3.5 Chloride Level 102 Carbon Dioxide Level 29 Anion Gap 14 Blood Urea Nitrogen 12 Creatinine 0.57 Glucose Level 98 Calcium Level 8.4 Total Bilirubin 0.5 Direct Bilirubin 0.00 Indirect Bilirubin 0.5 Aspartate Amino Transf (AST/SGOT) 28 Alanine Aminotransferase (ALT/SGPT) 40 Alkaline Phosphatase 70 Total Protein 5.0 L Albumin 2.9 L Globulin 2.10 Albumin/Globulin Ratio 1.38 Medications Medications Current Medications Polyethylene Glycol (Miralax) 8.5 gm DAILY PO Last administered on 04/24/17 08: 26; Admin Dose 8.5 GM; Start 04/24/17 at 09:00 Tramadol HCl (Ultram) 50 mg Q8H PRN PO PAIN; Start 04/24/17 at 01:00 Risedronate (Actonel) 35 mg Fr@0705 PO ; Start 04/30/17 at 07:05 Acetaminophen/ Hydrocodone Bitart ([place] (5/325)) 1 tab Q6H PRN PO PAIN Last administered on 04/24/17 06:22; Admin Dose 1 TAB; Start 04/24/17 at 01:00 Metoprolol Tartrate (Lopressor) 12.5 mg DAILY PO Last administered on 04/24/17 08:27; Admin Dose 12.5 MG; Start 04/24/17 at 09:00 Pantoprazole (Protonix Tab) 40 mg DAILY@06 PO Last administered on 04/24/17 06: 22; Admin Dose 40 MG; Start 04/24/17 at 06:00 Ondansetron HCl (Zofran Tab) 4 mg Q6H PRN PO NAUSEA AND/OR VOMITING; Start 04/24 at 01:00 Aspirin (Ecotrin) 325 mg BID PO Last administered on 04/24/17 08:25; Admin Dose 325 MG; Start 04/24/17 at 09:00 Atorvastatin Calcium (Lipitor) 20 mg DAILY@21 PO ; Start 04/24/17 at 21:00 Cyclosporine (Restasis) 1 drop Q12 BOTH EYES ; Start 04/24/17 at 09:00 Docusate Sodium (Colace) 100 mg BID PRN PO CONSTIPATION; Start 04/24/17 at 01:00 Enoxaparin Sodium (Lovenox) 40 mg DAILY SC Last administered on 04/24/17 08:31 ; Admin Dose 40 MG; Start 04/24/17 at 09:00 Ergocalciferol (Drisdol) 50,000 unit [place]@09 PO ; Start 04/25/17 at 09:00 Acetaminophen (Tylenol Tab) 650 mg Q4H PRN PO PAIN; Start 04/24/17 at 04:00 Bisacodyl (Dulcolax Supp) 10 mg DAILY PRN [place] CONSTIPATION; Start 04/24/17 at 04: 00 Magnesium Hydroxide (Milk Of Mag) 30 ml BID PRN PO CONSTIPATION; Start 04/24/17 at 04:00 Lactulose (Enulose) 20 gm DAILY PRN PO CONSTIPATION; Start 04/24/17 at 04:00 JUAN TRONCOSO MD Apr 24, 2017 09:19
--- NOTE | 2017-04-24 16:56 | CONS ---
Date/Time of Note Date/Time of Note DATE: 04/24/17 TIME: 16:51 Assessment/Plan Assessment/Plan Additional Assessment/Plan IMP: 1. s/p ORIF for hip Fx 2. HTN heart disease 3. Osteoporosis 4. Dyslipidemia 5. GERD RECS: 1. PT/OT 2. DVT prophylaxis 3. Anti-HTN therapy 4. Minimize narcotics 5. Bowel regimen Consultation Date/Type/Reason Admit Date/Time Apr 23, 2017 at 21:16 Type of Consultation: IM Hx of Present Illness In brief, this is a 89-year-old female who sustained a ground-level fall without loss of consciousness or dizziness and fell onto her left hip. She came to the ER brought in by ambulance complaining of left hip pain she was found to have a left hip fracture on x-ray. She underwent ORIF and was evaluated by Cardiology and Pulmonary. She is now in acute rehab s/p ORIF. Constitutional: no complaints Eyes: no complaints ENT: no complaints Respiratory: no complaints Cardiovascular: no complaints Gastrointestinal: no complaints Genitourinary: no complaints Musculoskeletal: back pain, bone/joint pain Skin: no complaints Neurologic: no complaints Endocrine: no complaints Lymphatic: no complaints Psychological: No anxiety, No confusion, No depression, No nl mood/affect, No no complaints, No other, No suicidal Past Medical History 1. Osteoporosis on Actonel 2. High blood pressure 3. Dyslipidemia 4. GERD Past Surgical History ORIF Past Surgical Hx: no surgical history Social History Alcohol Use: none Smoking Status: Never smoker Drug Use: none Exam/Review of Systems Vital Signs Vitals Vital Signs Date Time Temp Pulse Resp B/P Pulse Ox O2 Delivery O2 Flow Rate FiO2 04/24/17 08:36 98.4 74 16 110/53 95 Room Air Intake and Output 04/23/17 04/23/17 04/24/17 14:59 22:59 06:59 Intake Total 200 ml Balance 200 ml Exam Constitutional: frail Psych: no complaints Head: atraumatic, normocephalic Eyes: EOMI, nl conjunctiva, nl sclera ENMT: mucosa pink and moist, nl external ears & nose, nl nasal mucosa & septum Neck: non-tender, supple Respiratory: clear to auscultation, diminished breath sounds Cardiovascular: nl pulses, regular rate and rhythm, systolic murmur Gastrointestinal: nl liver, spleen, non-tender, soft Musculoskeletal: nl extremities to inspection Extremities: normal pulses Neurological: [employer] II-XII intact, DTR's symmetric Skin: nl turgor Results Result Diagram: 04/24/17 0616 04/24/17 0616 Results 24 hrs Laboratory Tests Test 04/23/17 23:30 04/24/17 06:16 Urine Color YELLOW Urine Clarity SLIGHTLY CLOUDY A Urine pH 5.0 Urine Specific [place] 1.010 Urine Ketones NEGATIVE Urine Nitrite POSITIVE A Urine Bilirubin NEGATIVE Urine Urobilinogen 2+ H Urine Leukocyte Esterase 3+ H Urine Microscopic RBC 4 Urine Microscopic WBC 105 H Urine Bacteria FEW A Urine Hemoglobin 1+ H Urine Glucose NEGATIVE Urine Total Protein NEGATIVE White Blood Count 9.8 Red Blood Count 2.53 L Hemoglobin 7.9 L Hematocrit 24.1 L Mean Corpuscular Volume 95.3 Mean Corpuscular Hemoglobin 31.2 Mean Corpuscular Hemoglobin Concent 32.8 Red Cell Distribution Width 16.1 H Platelet Count 455 H Mean Platelet Volume 12.0 H Neutrophils % 67.3 Lymphocytes % 16.4 Monocytes % 10.1 Eosinophils % 3.8 Basophils % 0.9 Nucleated Red Blood Cells % 0.0 Neutrophils # 6.6 Lymphocytes # 1.6 Monocytes # 1.0 H Eosinophils # 0.4 Basophils # 0.1 Nucleated Red Blood Cells # 0.0 Sodium Level 141 Potassium Level 3.5 Chloride Level 102 Carbon Dioxide Level 29 Anion Gap 14 Blood Urea Nitrogen 12 Creatinine 0.57 Glucose Level 98 Calcium Level 8.4 Total Bilirubin 0.5 Direct Bilirubin 0.00 Indirect Bilirubin 0.5 Aspartate Amino Transf (AST/SGOT) 28 Alanine Aminotransferase (ALT/SGPT) 40 Alkaline Phosphatase 70 Total Protein 5.0 L Albumin 2.9 L Globulin 2.10 Albumin/Globulin Ratio 1.38 Medications Medications Current Medications Polyethylene Glycol (Miralax) 8.5 gm DAILY PO Last administered on 04/24/17t 08: 26; Admin Dose 8.5 GM; Start 04/24/17 at 09:00 Tramadol HCl (Ultram) 50 mg Q8H PRN PO PAIN; Start 04/24/17 at 01:00 Risedronate (Actonel) 35 mg Fr@0705 PO ; Start 04/30/17 at 07:05 Acetaminophen/ Hydrocodone Bitart ([place] (5/325)) 1 tab Q6H PRN PO PAIN Last administered on 04/24/17 13:51; Admin Dose 1 TAB; Start 04/24/17 at 01:00 Metoprolol Tartrate (Lopressor) 12.5 mg DAILY PO Last administered on 04/24/17 08:27; Admin Dose 12.5 MG; Start 04/24/17 at 09:00 Pantoprazole (Protonix Tab) 40 mg DAILY@06 PO Last administered on 04/24/17 06: 22; Admin Dose 40 MG; Start 04/24/17 at 06:00 Ondansetron HCl (Zofran Tab) 4 mg Q6H PRN PO NAUSEA AND/OR VOMITING; Start 04/24 at 01:00 Aspirin (Ecotrin) 325 mg BID PO Last administered on 04/24/17 08:25; Admin Dose 325 MG; Start 04/24/17 at 09:00 Atorvastatin Calcium (Lipitor) 20 mg DAILY@21 PO ; Start 04/24/17 at 21:00 Cyclosporine (Restasis) 1 drop Q12 BOTH EYES Last administered on 04/24/17 10: 46; Admin Dose 1 DROP; Start 04/24/17 at 09:00 Docusate Sodium (Colace) 100 mg BID PRN PO CONSTIPATION; Start 04/24/17 at 01:00 Enoxaparin Sodium (Lovenox) 40 mg DAILY SC Last administered on 04/24/17 08:31 ; Admin Dose 40 MG; Start 04/24/17 at 09:00 Ergocalciferol (Drisdol) 50,000 unit [place]@09 PO ; Start 04/25/17 at 09:00 Acetaminophen (Tylenol Tab) 650 mg Q4H PRN PO PAIN; Start 04/24/17 at 04:00 Bisacodyl (Dulcolax Supp) 10 mg DAILY PRN [place] CONSTIPATION; Start 04/24/17 at 04: 00 Magnesium Hydroxide (Milk Of Mag) 30 ml BID PRN PO CONSTIPATION; Start 04/24/17 at 04:00 Lactulose (Enulose) 20 gm DAILY PRN PO CONSTIPATION; Start 04/24/17 at 04:00 SILVA AMAYA MD Apr 24, 2017 16:55
[2017-04-24 20:02] VITALS: BP 109/57; RESP 18
[2017-04-24] MEDS: ATORVASTATIN 20 MG TAB PO SCH (20:27)
[2017-04-25 06:05] LABS: ADD SCAN DIFF NO
[2017-04-25 06:16] LABS: BASOPHIL # 0.1 10^3/ul (0.0-0.1); BASOPHILS % 0.8 % (0.0-2.0); EOSINOPHILS # 0.3 10^3/ul (0.0-0.5); EOSINOPHILS % 3.1 % (0.0-7.0); HEMATOCRIT 24.7 % (37.0-47.0); LYMPHOCYTES # 1.5 10^3/ul (0.8-2.9); LYMPHOCYTES % 14.2 % (15.0-51.0); MEAN CORPUSCULAR HEMOGLOBIN 30.7 pg (29.0-33.0); MEAN CORPUSCULAR HGB CONC 32.4 g/dl (32.0-37.0); MEAN CORPUSCULAR VOLUME 94.6 fl (82.0-101.0); MEAN PLATELET VOLUME 10.9 fl (7.4-10.4); MONOCYTES % 9.6 % (0.0-11.0); NEUTROPHIL # 7.4 10^3/ul (1.6-7.5); NEUTROPHILS % 70.1 % (39.0-77.0); PLATELET COUNT 484 10^3/UL (140-415); RED BLOOD COUNT 2.61 10^6/ul (4.20-5.40); RED CELL DISTRIBUTION WIDTH 16.2 % (11.5-14.5); WHITE BLOOD COUNT 10.5 10^3/ul (4.8-10.8)
[2017-04-25] MEDS: PANTOPRAZOLE (EC) 40 MG TAB PO SCH (06:44)
[2017-04-25 06:50] LABS: CALCIUM 7.7 mg/dl (8.4-10.2); CREATININE 0.66 mg/dl (0.44-1.00); POTASSIUM 3.3 mmol/L (3.5-5.1)
[2017-04-25 08:30] VITALS: BP 128/60; PULSE 72; RESP 16
[2017-04-25 08:46] VITALS: BP 128/60; RESP 18
[2017-04-25] MEDS: ASPIRIN (EC) 325 MG TAB PO SCH ×2 (08:49→20:26)
[2017-04-25] MEDS: CYCLOSPORINE 0.05% OPH DROPERETTE BOTH EYES SCH ×2 (08:50→20:26)
[2017-04-25] MEDS: METOPROLOL 25 MG TAB PO SCH (08:50)
[2017-04-25] MEDS: POLYETHYLENE GLYCOL 17 GM PACKET PO SCH (08:51)
[2017-04-25] MEDS: ENOXAPARIN 40 MG/0.4 ML SYG SC SCH (08:54)
[2017-04-25] MEDS ORDERED: ERGOCALCIFEROL 50,000 UNIT CAP PO SCH (09:00)
[2017-04-25] MEDS ORDERED: POTASSIUM CHLORIDE (SR) 20 MEQ TAB PO STA (12:59)
--- NOTE | 2017-04-25 13:49 | CONS ---
Date/Time of Note Date/Time of Note DATE: 04/25/17 TIME: 13:48 Assessment/Plan Assessment/Plan Chief Complaint/Hosp Course IMP: 1.Post-op- s/p HIP ORIF 2.HTN - reasonable control 3. RBBB - likely chronic, negative troponins - Diast HF, chronic. 4 GERD - PPI to folllow 5. Pain - con't pain rx as needed 6. Diastolic dysfunction-reasonable volume status 7.Osteoporosis Recc: -Now transferred to inpatient rehab -Continue asa/statin -Continue low dose BB as tolerated only and follow labile BP closely which is currently reasonable -pain control -PT -Spot dose lasix as necessary and follow volume status closely Problems: Consultation Date/Type/Reason Admit Date/Time Apr 23, 2017 at 21:16 Initial Consult Date 04/24/17 Type of Consultation: cardiology Reason for Consultation HTN Referring Provider: SHANNAN CAN Exam/Review of Systems Vital Signs Vitals Vital Signs Date Time Temp Pulse Resp B/P Pulse Ox O2 Delivery O2 Flow Rate FiO2 04/25/17 08:46 98.6 71 18 128/60 96 04/25/17 08:30 Room Air Intake and Output 04/24/17 04/24/17 04/25/17 15:00 23:00 07:00 Intake Total 500 ml 1310 ml 700 ml Output Total 260 ml Balance 500 ml 1050 ml 700 ml Exam Review of Systems: CONSTITUTIONAL: No fevers, chills. PULMONARY: No sob CARDIOVASCULAR: No chest pain/palpitations GASTROINTESTINAL: No nausea/vomiting. GENITOURINARY: No hematuria/dysuria. MUSCULOSKELETAL: No myagias/arthalgias. PSYCHIATRIC: The patient denies depression. NEUROLOGIC: No weakness Constitutional: alert Psych: no complaints Head: normocephalic ENMT: mucosa pink and moist Neck: jvd (8 cm water), supple Respiratory: clear to auscultation Cardiovascular: regular rate and rhythm Gastrointestinal: non-tender, soft Extremities: edema (none) Neurological: other (No focal deficits) Results Result Diagram: 04/25/17 0550 04/25/17 0550 Results 24 hrs Laboratory Tests Test 04/25/17 05:50 White Blood Count 10.5 Red Blood Count 2.61 L Hemoglobin 8.0 L Hematocrit 24.7 L Mean Corpuscular Volume 94.6 Mean Corpuscular Hemoglobin 30.7 Mean Corpuscular Hemoglobin Concent 32.4 Red Cell Distribution Width 16.2 H Platelet Count 484 H Mean Platelet Volume 10.9 H Neutrophils % 70.1 Lymphocytes % 14.2 L Monocytes % 9.6 Eosinophils % 3.1 Basophils % 0.8 Nucleated Red Blood Cells % 0.0 Neutrophils # 7.4 Lymphocytes # 1.5 Monocytes # 1.0 H Eosinophils # 0.3 Basophils # 0.1 Nucleated Red Blood Cells # 0.0 Sodium Level 137 Potassium Level 3.3 L Chloride Level 104 Carbon Dioxide Level 29 Anion Gap 7 L Blood Urea Nitrogen 12 Creatinine 0.66 Glucose Level 100 Calcium Level 7.7 L Medications Medications Current Medications Polyethylene Glycol (Miralax) 8.5 gm DAILY PO Last administered on 04/24/17 08: 26; Admin Dose 8.5 GM; Start 04/24/17 at 09:00 Tramadol HCl (Ultram) 50 mg Q8H PRN PO PAIN; Start 04/24/17 at 01:00 Risedronate (Actonel) 35 mg Fr@0705 PO ; Start 04/30/17 at 07:05 Acetaminophen/ Hydrocodone Bitart ([place] (5/325)) 1 tab Q6H PRN PO PAIN Last administered on 04/24/17 20:28; Admin Dose 1 TAB; Start 04/24/17 at 01:00 Metoprolol Tartrate (Lopressor) 12.5 mg DAILY PO Last administered on 04/25/17 08:50; Admin Dose 12.5 MG; Start 04/24/17 at 09:00 Pantoprazole (Protonix Tab) 40 mg DAILY@06 PO Last administered on 04/25/17 06: 44; Admin Dose 40 MG; Start 04/24/17 at 06:00 Ondansetron HCl (Zofran Tab) 4 mg Q6H PRN PO NAUSEA AND/OR VOMITING; Start 04/24 at 01:00 Aspirin (Ecotrin) 325 mg BID PO Last administered on 04/25/17 08:49; Admin Dose 325 MG; Start 04/24/17 at 09:00 Atorvastatin Calcium (Lipitor) 20 mg DAILY@21 PO Last administered on 04/24/17 20:27; Admin Dose 20 MG; Start 04/24/17 at 21:00 Cyclosporine (Restasis) 1 drop Q12 BOTH EYES Last administered on 04/25/17 08: 50; Admin Dose 1 DROP; Start 04/24/17 at 09:00 Docusate Sodium (Colace) 100 mg BID PRN PO CONSTIPATION; Start 04/24/17 at 01:00 Enoxaparin Sodium (Lovenox) 40 mg DAILY SC Last administered on 04/25/17 08:54 ; Admin Dose 40 MG; Start 04/24/17 at 09:00 Ergocalciferol (Drisdol) 50,000 unit [place]@09 PO Last administered on 04/25/17 09: 05; Admin Dose 50,000 UNIT; Start 04/25/17 at 09:00 Acetaminophen (Tylenol Tab) 650 mg Q4H PRN PO PAIN; Start 04/24/17 at 04:00 Bisacodyl (Dulcolax Supp) 10 mg DAILY PRN [place] CONSTIPATION; Start 04/24/17 at 04: 00 Magnesium Hydroxide (Milk Of Mag) 30 ml BID PRN PO CONSTIPATION; Start 04/24/17 at 04:00 Lactulose (Enulose) 20 gm DAILY PRN PO CONSTIPATION; Start 04/24/17 at 04:00 RL CONTRERAS Apr 25, 2017 13:49
--- NOTE | 2017-04-25 14:55 | CONS ---
Date/Time of Note Date/Time of Note DATE: 04/25/17 TIME: 14:54 Consult Date/Type/Reason Admit Date/Time Apr 23, 2017 at 21:16 Initial Consult Date Type of Consultation: IM Ordering Provider: SHANNAN CAN Subjective No events overnight. BP well controlled. Objective Vital Signs Date Time Temp Pulse Resp B/P Pulse Ox O2 Delivery O2 Flow Rate FiO2 04/25/17 08:46 98.6 71 18 128/60 96 04/25/17 08:30 Room Air Intake and Output 04/24/17 04/24/17 04/25/17 15:00 23:00 07:00 Intake Total 500 ml 1310 ml 700 ml Output Total 260 ml Balance 500 ml 1050 ml 700 ml Exam HEENT: Neck supple; no JVD; no LAD CVS: RRR, S1 and S2 CHEST: Clear ABD: Soft, NT, + BS EXT: No c/c/e Results/Medications Result Diagram: 04/25/17 0550 04/25/17 0550 Results 24 hrs Laboratory Tests Test 04/25/17 05:50 White Blood Count 10.5 Red Blood Count 2.61 L Hemoglobin 8.0 L Hematocrit 24.7 L Mean Corpuscular Volume 94.6 Mean Corpuscular Hemoglobin 30.7 Mean Corpuscular Hemoglobin Concent 32.4 Red Cell Distribution Width 16.2 H Platelet Count 484 H Mean Platelet Volume 10.9 H Neutrophils % 70.1 Lymphocytes % 14.2 L Monocytes % 9.6 Eosinophils % 3.1 Basophils % 0.8 Nucleated Red Blood Cells % 0.0 Neutrophils # 7.4 Lymphocytes # 1.5 Monocytes # 1.0 H Eosinophils # 0.3 Basophils # 0.1 Nucleated Red Blood Cells # 0.0 Sodium Level 137 Potassium Level 3.3 L Chloride Level 104 Carbon Dioxide Level 29 Anion Gap 7 L Blood Urea Nitrogen 12 Creatinine 0.66 Glucose Level 100 Calcium Level 7.7 L Medications Current Medications Polyethylene Glycol (Miralax) 8.5 gm DAILY PO Last administered on 04/24/17t 08: 26; Admin Dose 8.5 GM; Start 04/24/17 at 09:00 Tramadol HCl (Ultram) 50 mg Q8H PRN PO PAIN; Start 04/24/17 at 01:00 Risedronate (Actonel) 35 mg Fr@0705 PO ; Start 04/30/17 at 07:05 Acetaminophen/ Hydrocodone Bitart ([place] (5/325)) 1 tab Q6H PRN PO PAIN Last administered on 04/24/17 20:28; Admin Dose 1 TAB; Start 04/24/17 at 01:00 Metoprolol Tartrate (Lopressor) 12.5 mg DAILY PO Last administered on 04/25/17 08:50; Admin Dose 12.5 MG; Start 04/24/17 at 09:00 Pantoprazole (Protonix Tab) 40 mg DAILY@06 PO Last administered on 04/25/17 06: 44; Admin Dose 40 MG; Start 04/24/17 at 06:00 Ondansetron HCl (Zofran Tab) 4 mg Q6H PRN PO NAUSEA AND/OR VOMITING; Start 04/24 at 01:00 Aspirin (Ecotrin) 325 mg BID PO Last administered on 04/25/17 08:49; Admin Dose 325 MG; Start 04/24/17 at 09:00 Atorvastatin Calcium (Lipitor) 20 mg DAILY@21 PO Last administered on 04/24/17 20:27; Admin Dose 20 MG; Start 04/24/17 at 21:00 Cyclosporine (Restasis) 1 drop Q12 BOTH EYES Last administered on 04/25/17 08: 50; Admin Dose 1 DROP; Start 04/24/17 at 09:00 Docusate Sodium (Colace) 100 mg BID PRN PO CONSTIPATION; Start 04/24/17 at 01:00 Enoxaparin Sodium (Lovenox) 40 mg DAILY SC Last administered on 04/25/17 08:54 ; Admin Dose 40 MG; Start 04/24/17 at 09:00 Ergocalciferol (Drisdol) 50,000 unit [place]@09 PO Last administered on 04/25/17 09: 05; Admin Dose 50,000 UNIT; Start 04/25/17 at 09:00 Acetaminophen (Tylenol Tab) 650 mg Q4H PRN PO PAIN; Start 04/24/17 at 04:00 Bisacodyl (Dulcolax Supp) 10 mg DAILY PRN [place] CONSTIPATION; Start 04/24/17 at 04: 00 Magnesium Hydroxide (Milk Of Mag) 30 ml BID PRN PO CONSTIPATION; Start 04/24/17 at 04:00 Lactulose (Enulose) 20 gm DAILY PRN PO CONSTIPATION; Start 04/24/17 at 04:00 Assessment/Plan Chief Complaint/Hosp Course In brief, this is a 89-year-old female who sustained a ground-level fall without loss of consciousness or dizziness and fell onto her left hip. She came to the ER brought in by ambulance complaining of left hip pain she was found to have a left hip fracture on x-ray. She underwent ORIF and was evaluated by Cardiology and Pulmonary. She is now in acute rehab s/p ORIF. Problems: Additional Assessment/Plan IMP: 1. s/p ORIF for hip Fx 2. HTN heart disease 3. Osteoporosis 4. Dyslipidemia 5. GERD 6. Anemia RECS: 1. PT/OT 2. Appreciate Cards input 3. Anti-HTN therapy 4. Replete K+ 5. Bowel regimen SILVA AMAYA MD Apr 25, 2017 14:55
[2017-04-25] MEDS: HYDROCODONE/APAP (5/325) TAB PO PRN (17:55)
[2017-04-25 19:34] VITALS: BP 127/65; RESP 18
[2017-04-25] MEDS: ATORVASTATIN 20 MG TAB PO SCH (20:26)
[2017-04-26] MEDS: PANTOPRAZOLE (EC) 40 MG TAB PO SCH (05:45)
[2017-04-26] MEDS: HYDROCODONE/APAP (5/325) TAB PO PRN ×3 (07:25→21:32)
[2017-04-26 07:30] VITALS: BP 124/61; RESP 18
[2017-04-26 07:39] LABS: ADD SCAN DIFF NO
[2017-04-26 07:41] LABS: BASOPHIL # 0.1 10^3/ul (0.0-0.1); BASOPHILS % 0.5 % (0.0-2.0); EOSINOPHILS # 0.3 10^3/ul (0.0-0.5); EOSINOPHILS % 2.8 % (0.0-7.0); HEMATOCRIT 24.5 % (37.0-47.0); HEMOGLOBIN 7.9 g/dl (12.0-16.0); LYMPHOCYTES # 1.4 10^3/ul (0.8-2.9); LYMPHOCYTES % 13.5 % (15.0-51.0); MEAN CORPUSCULAR HGB CONC 32.2 g/dl (32.0-37.0); MEAN CORPUSCULAR VOLUME 96.1 fl (82.0-101.0); MONOCYTES % 9.6 % (0.0-11.0); NEUTROPHIL # 7.3 10^3/ul (1.6-7.5); NEUTROPHILS % 71.7 % (39.0-77.0); PLATELET COUNT 502 10^3/UL (140-415); RED BLOOD COUNT 2.55 10^6/ul (4.20-5.40); RED CELL DISTRIBUTION WIDTH 16.6 % (11.5-14.5); WHITE BLOOD COUNT 10.1 10^3/ul (4.8-10.8)
[2017-04-26 08:05] LABS: CALCIUM 7.7 mg/dl (8.4-10.2); CREATININE 0.63 mg/dl (0.44-1.00); POTASSIUM 3.7 mmol/L (3.5-5.1)
[2017-04-26] MEDS: POLYETHYLENE GLYCOL 17 GM PACKET PO SCH ×2 (09:00→09:13)
[2017-04-26] MEDS: ENOXAPARIN 40 MG/0.4 ML SYG SC SCH (09:13)
[2017-04-26] MEDS: METOPROLOL 25 MG TAB PO SCH (09:14)
[2017-04-26] MEDS: ASPIRIN (EC) 325 MG TAB PO SCH ×2 (09:15→20:34)
[2017-04-26] MEDS: CYCLOSPORINE 0.05% OPH DROPERETTE BOTH EYES SCH ×2 (09:15→20:34)
--- NOTE | 2017-04-26 11:06 | CONS ---
Date/Time of Note Date/Time of Note DATE: 04/26/17 TIME: 11:06 Consult Date/Type/Reason Admit Date/Time Apr 23, 2017 at 21:16 Initial Consult Date Type of Consultation: IM Ordering Provider: SHANNAN CAN Objective Vital Signs Date Time Temp Pulse Resp B/P Pulse Ox O2 Delivery O2 Flow Rate FiO2 04/25/17 19:34 98.5 73 18 127/65 97 04/25/17 08:30 Room Air Intake and Output 04/25/17 04/25/17 04/26/17 14:59 22:59 06:59 Intake Total 350 ml 1390 ml 700 ml Output Total 450 ml 350 ml Balance -100 ml 1040 ml 700 ml INTERDISCIPLINARY TEAM CONFERENCE BOWEL- Cont BLADDER-Cont SKIN- intact OT- DRESSING-min BATHING-min TOILETING-min PT- BED MOBILITY-min TRANSFERS-min AMBULATION-minimal assist 90 feet A/P- Interdisciplinary team conference held today. Please see interdisciplinary sheet. Working toward d.c. on 05/03 with post discharge follow up of physical therapy, occupational therapy. Results/Medications Result Diagram: 04/26/17 0608 04/26/17 0608 Results 24 hrs Laboratory Tests Test 04/26/17 06:08 White Blood Count 10.1 Red Blood Count 2.55 L Hemoglobin 7.9 L Hematocrit 24.5 L Mean Corpuscular Volume 96.1 Mean Corpuscular Hemoglobin 31.0 Mean Corpuscular Hemoglobin Concent 32.2 Red Cell Distribution Width 16.6 H Platelet Count 502 H Mean Platelet Volume 11.0 H Neutrophils % 71.7 Lymphocytes % 13.5 L Monocytes % 9.6 Eosinophils % 2.8 Basophils % 0.5 Nucleated Red Blood Cells % 0.0 Neutrophils # 7.3 Lymphocytes # 1.4 Monocytes # 1.0 H Eosinophils # 0.3 Basophils # 0.1 Nucleated Red Blood Cells # 0.0 Sodium Level 139 Potassium Level 3.7 Chloride Level 105 Carbon Dioxide Level 29 Anion Gap 9 Blood Urea Nitrogen 10 Creatinine 0.63 Glucose Level 94 Calcium Level 7.7 L Medications Current Medications Polyethylene Glycol (Miralax) 8.5 gm DAILY PO Last administered on 04/24/17t 08: 26; Admin Dose 8.5 GM; Start 04/24/17 at 09:00 Tramadol HCl (Ultram) 50 mg Q8H PRN PO PAIN; Start 04/24/17 at 01:00 Risedronate (Actonel) 35 mg Fr@0705 PO ; Start 04/30/17 at 07:05 Acetaminophen/ Hydrocodone Bitart ([place] (5/325)) 1 tab Q6H PRN PO PAIN Last administered on 04/26/17 07:25; Admin Dose 1 TAB; Start 04/24/17 at 01:00 Metoprolol Tartrate (Lopressor) 12.5 mg DAILY PO Last administered on 09:14; Admin Dose 12.5 MG; Start 04/24/17 at 09:00 Pantoprazole (Protonix Tab) 40 mg DAILY@06 PO Last administered on 04/26/17 05 :45; Admin Dose 40 MG; Start 04/24/17 at 06:00 Ondansetron HCl (Zofran Tab) 4 mg Q6H PRN PO NAUSEA AND/OR VOMITING; Start 04/24 at 01:00 Aspirin (Ecotrin) 325 mg BID PO Last administered on 04/26/17 09:15; Admin Dose 325 MG; Start 04/24/17 at 09:00 Atorvastatin Calcium (Lipitor) 20 mg DAILY@21 PO Last administered on 04/25/17 20:26; Admin Dose 20 MG; Start 04/24/17 at 21:00 Cyclosporine (Restasis) 1 drop Q12 BOTH EYES Last administered on 04/26/17 09: 15; Admin Dose 1 DROP; Start 04/24/17 at 09:00 Docusate Sodium (Colace) 100 mg BID PRN PO CONSTIPATION; Start 04/24/17 at 01:00 Enoxaparin Sodium (Lovenox) 40 mg DAILY SC Last administered on 04/26/17 09:13 ; Admin Dose 40 MG; Start 04/24/17 at 09:00 Ergocalciferol (Drisdol) 50,000 unit Ribera@09 PO Last administered on 04/25/17 09: 05; Admin Dose 50,000 UNIT; Start 04/25/17 at 09:00 Acetaminophen (Tylenol Tab) 650 mg Q4H PRN PO PAIN; Start 04/24/17 at 04:00 Bisacodyl (Dulcolax Supp) 10 mg DAILY PRN [place] CONSTIPATION; Start 7/8/17 at 04: 00 Magnesium Hydroxide (Milk Of Mag) 30 ml BID PRN PO CONSTIPATION; Start 04/24/17 at 04:00 Lactulose (Enulose) 20 gm DAILY PRN PO CONSTIPATION; Start 04/24/17 at 04:00 JUAN TRONCOSO MD Apr 26, 2017 11:06 JUAN TRONCOSO MD Apr 26, 2017 11:06
--- NOTE | 2017-04-26 17:59 | CONS ---
Date/Time of Note Date/Time of Note DATE: 04/26/17 TIME: 17:56 Assessment/Plan Assessment/Plan Chief Complaint/Hosp Course IMP: 1.Post-op- s/p HIP ORIF 2.HTN - reasonable control 3. RBBB - likely chronic, negative troponins - Diast HF, chronic. 4 GERD - PPI to folllow 5. Pain - con't pain rx as needed 6. Diastolic dysfunction-reasonable volume status 7.Osteoporosis Recc: -Now transferred to inpatient rehab -Continue asa/statin -Continue low dose BB as tolerated only and follow labile BP closely which is currently reasonable -pain control -PT -Spot dose lasix as necessary and follow volume status closely Problems: Consultation Date/Type/Reason Admit Date/Time Apr 23, 2017 at 21:16 Initial Consult Date 04/24/17 Type of Consultation: cardiology Reason for Consultation HTN Referring Provider: SHANNAN CAN Exam/Review of Systems Vital Signs Vitals Vital Signs Date Time Temp Pulse Resp B/P Pulse Ox O2 Delivery O2 Flow Rate FiO2 04/26/17 07:30 98.3 72 18 124/61 95 04/25/17 08:30 Room Air Intake and Output 04/25/17 04/25/17 04/26/17 15:00 23:00 07:00 Intake Total 350 ml 1390 ml 700 ml Output Total 450 ml 350 ml Balance -100 ml 1040 ml 700 ml Exam Review of Systems: CONSTITUTIONAL: No fevers, chills. PULMONARY: No sob CARDIOVASCULAR: No chest pain/palpitations GASTROINTESTINAL: No nausea/vomiting. GENITOURINARY: No hematuria/dysuria. MUSCULOSKELETAL: mild pain at surgical site PSYCHIATRIC: The patient denies depression. NEUROLOGIC: No weakness Constitutional: alert Psych: no complaints Head: normocephalic ENMT: mucosa pink and moist Neck: jvd (8-9 cm water), supple Respiratory: clear to auscultation Cardiovascular: regular rate and rhythm Gastrointestinal: non-tender, soft Musculoskeletal: muscle tone (normal) Extremities: edema (trace ) Neurological: other (mild generalized weakness) Results Result Diagram: 04/26/17 0608 04/26/17 0608 Results 24 hrs Laboratory Tests Test 04/26/17 06:08 White Blood Count 10.1 Red Blood Count 2.55 L Hemoglobin 7.9 L Hematocrit 24.5 L Mean Corpuscular Volume 96.1 Mean Corpuscular Hemoglobin 31.0 Mean Corpuscular Hemoglobin Concent 32.2 Red Cell Distribution Width 16.6 H Platelet Count 502 H Mean Platelet Volume 11.0 H Neutrophils % 71.7 Lymphocytes % 13.5 L Monocytes % 9.6 Eosinophils % 2.8 Basophils % 0.5 Nucleated Red Blood Cells % 0.0 Neutrophils # 7.3 Lymphocytes # 1.4 Monocytes # 1.0 H Eosinophils # 0.3 Basophils # 0.1 Nucleated Red Blood Cells # 0.0 Sodium Level 139 Potassium Level 3.7 Chloride Level 105 Carbon Dioxide Level 29 Anion Gap 9 Blood Urea Nitrogen 10 Creatinine 0.63 Glucose Level 94 Calcium Level 7.7 L Medications Medications Current Medications Polyethylene Glycol (Miralax) 8.5 gm DAILY PO Last administered on 04/24/17 08: 26; Admin Dose 8.5 GM; Start 04/24/17 at 09:00 Tramadol HCl (Ultram) 50 mg Q8H PRN PO PAIN; Start 04/24/17 at 01:00 Risedronate (Actonel) 35 mg Fr@0705 PO ; Start 04/30/17 at 07:05 Acetaminophen/ Hydrocodone Bitart ([place] (5/325)) 1 tab Q6H PRN PO PAIN Last administered on 04/26/17 14:40; Admin Dose 1 TAB; Start 04/24/17 at 01:00 Metoprolol Tartrate (Lopressor) 12.5 mg DAILY PO Last administered on 09:14; Admin Dose 12.5 MG; Start 04/24/17 at 09:00 Pantoprazole (Protonix Tab) 40 mg DAILY@06 PO Last administered on 04/26/17 05 :45; Admin Dose 40 MG; Start 04/24/17 at 06:00 Ondansetron HCl (Zofran Tab) 4 mg Q6H PRN PO NAUSEA AND/OR VOMITING; Start 04/24 at 01:00 Aspirin (Ecotrin) 325 mg BID PO Last administered on 04/26/17 09:15; Admin Dose 325 MG; Start 04/24/17 at 09:00 Atorvastatin Calcium (Lipitor) 20 mg DAILY@21 PO Last administered on 04/25/17 20:26; Admin Dose 20 MG; Start 04/24/17 at 21:00 Cyclosporine (Restasis) 1 drop Q12 BOTH EYES Last administered on 04/26/17 09: 15; Admin Dose 1 DROP; Start 04/24/17 at 09:00 Docusate Sodium (Colace) 100 mg BID PRN PO CONSTIPATION; Start 04/24/17 at 01:00 Enoxaparin Sodium (Lovenox) 40 mg DAILY SC Last administered on 04/26/17 09:13 ; Admin Dose 40 MG; Start 04/24/17 at 09:00 Ergocalciferol (Drisdol) 50,000 unit [place]era@09 PO Last administered on 04/25/17 09: 05; Admin Dose 50,000 UNIT; Start 04/25/17 at 09:00 Acetaminophen (Tylenol Tab) 650 mg Q4H PRN PO PAIN; Start 04/24/17 at 04:00 Bisacodyl (Dulcolax Supp) 10 mg DAILY PRN [place] CONSTIPATION; Start 04/24/17 at 04: 00 Magnesium Hydroxide (Milk Of Mag) 30 ml BID PRN PO CONSTIPATION; Start 04/24/17 at 04:00 Lactulose (Enulose) 20 gm DAILY PRN PO CONSTIPATION; Start 04/24/17 at 04:00 RL CONTRERAS Apr 26, 2017 17:59
[2017-04-26 20:00] VITALS: BP 111/53; RESP 18
[2017-04-26] MEDS: FERROUS SULFATE (EC) 325 MG TAB PO SCH (20:34)
[2017-04-26] MEDS: ATORVASTATIN 20 MG TAB PO SCH (20:34)
[2017-04-27] MEDS: PANTOPRAZOLE (EC) 40 MG TAB PO SCH (06:31)
[2017-04-27 07:46] LABS: ADD SCAN DIFF NO
[2017-04-27 07:53] LABS: BASOPHIL # 0.1 10^3/ul (0.0-0.1); BASOPHILS % 0.6 % (0.0-2.0); EOSINOPHILS # 0.3 10^3/ul (0.0-0.5); EOSINOPHILS % 2.8 % (0.0-7.0); HEMATOCRIT 25.2 % (37.0-47.0); HEMOGLOBIN 8.3 g/dl (12.0-16.0); LYMPHOCYTES # 1.9 10^3/ul (0.8-2.9); LYMPHOCYTES % 17.5 % (15.0-51.0); MEAN CORPUSCULAR HEMOGLOBIN 31.8 pg (29.0-33.0); MEAN CORPUSCULAR HGB CONC 32.9 g/dl (32.0-37.0); MEAN CORPUSCULAR VOLUME 96.6 fl (82.0-101.0); MEAN PLATELET VOLUME 10.9 fl (7.4-10.4); MONOCYTE # 0.9 10^3/ul (0.3-0.9); MONOCYTES % 8.9 % (0.0-11.0); NEUTROPHIL # 7.1 10^3/ul (1.6-7.5); NEUTROPHILS % 67.7 % (39.0-77.0); NUCLEATED RED BLOOD CELLS% 0.3 /100WBC (0.0-0.0); PLATELET COUNT 567 10^3/UL (140-415); RED BLOOD COUNT 2.61 10^6/ul (4.20-5.40); RED CELL DISTRIBUTION WIDTH 16.8 % (11.5-14.5); WHITE BLOOD COUNT 10.6 10^3/ul (4.8-10.8)
[2017-04-27 08:00] VITALS: BP 115/52; RESP 18
[2017-04-27 08:19] LABS: CALCIUM 7.9 mg/dl (8.4-10.2); CREATININE 0.58 mg/dl (0.44-1.00); POTASSIUM 3.6 mmol/L (3.5-5.1)
[2017-04-27] MEDS: POLYETHYLENE GLYCOL 17 GM PACKET PO SCH (09:00)
[2017-04-27] MEDS: ENOXAPARIN 40 MG/0.4 ML SYG SC SCH (09:00)
[2017-04-27] MEDS: METOPROLOL 25 MG TAB PO SCH (09:01)
[2017-04-27] MEDS: CYCLOSPORINE 0.05% OPH DROPERETTE BOTH EYES SCH ×2 (09:01→20:30)
[2017-04-27] MEDS: FERROUS SULFATE (EC) 325 MG TAB PO SCH ×2 (09:02→20:31)
[2017-04-27] MEDS: ASPIRIN (EC) 325 MG TAB PO SCH ×2 (09:02→20:33)
[2017-04-27] MEDS: HYDROCODONE/APAP (5/325) TAB PO PRN ×2 (09:22→18:03)
--- NOTE | 2017-04-27 12:16 | CONS ---
Date/Time of Note Date/Time of Note DATE: 04/27/17 TIME: 12:16 Assessment/Plan Assessment/Plan Additional Assessment/Plan No active cardiac instability reported Consultation Date/Type/Reason Admit Date/Time Apr 23, 2017 at 21:16 Initial Consult Date Type of Consultation: cardiology Referring Provider: SHANNAN CAN Exam/Review of Systems Vital Signs Vitals Vital Signs Date Time Temp Pulse Resp B/P Pulse Ox O2 Delivery O2 Flow Rate FiO2 04/27/17 08:00 98.0 72 18 115/52 96 04/25/17 08:30 Room Air Intake and Output 04/26/17 04/26/17 04/27/17 15:00 23:00 07:00 Intake Total 980 ml 500 ml Output Total 1100 ml Balance 980 ml -600 ml Results Result Diagram: 04/27/1715 04/27/17 0615 Results 24 hrs Laboratory Tests Test 04/27/17 06:15 White Blood Count 10.6 Red Blood Count 2.61 L Hemoglobin 8.3 L Hematocrit 25.2 L Mean Corpuscular Volume 96.6 Mean Corpuscular Hemoglobin 31.8 Mean Corpuscular Hemoglobin Concent 32.9 Red Cell Distribution Width 16.8 H Platelet Count 567 H Mean Platelet Volume 10.9 H Neutrophils % 67.7 Lymphocytes % 17.5 Monocytes % 8.9 Eosinophils % 2.8 Basophils % 0.6 Nucleated Red Blood Cells % 0.3 H Neutrophils # 7.1 Lymphocytes # 1.9 Monocytes # 0.9 Eosinophils # 0.3 Basophils # 0.1 Nucleated Red Blood Cells # 0.0 Sodium Level 134 L Potassium Level 3.6 Chloride Level 102 Carbon Dioxide Level 30 Anion Gap 6 L Blood Urea Nitrogen 11 Creatinine 0.58 Glucose Level 85 Calcium Level 7.9 L Medications Medications Current Medications Polyethylene Glycol (Miralax) 8.5 gm DAILY PO Last administered on 04/24/17t 08: 26; Admin Dose 8.5 GM; Start 04/24/17 at 09:00 Tramadol HCl (Ultram) 50 mg Q8H PRN PO PAIN; Start 04/24/17 at 01:00 Risedronate (Actonel) 35 mg Fr@0705 PO ; Start 04/30/17 at 07:05 Acetaminophen/ Hydrocodone Bitart ([place] (5/325)) 1 tab Q6H PRN PO PAIN Last administered on 04/27/17 09:22; Admin Dose 1 TAB; Start 04/24/17 at 01:00 Metoprolol Tartrate (Lopressor) 12.5 mg DAILY PO Last administered on 09:01; Admin Dose 12.5 MG; Start 04/24/17 at 09:00 Pantoprazole (Protonix Tab) 40 mg DAILY@06 PO Last administered on 04/27/17 06 :31; Admin Dose 40 MG; Start 04/24/17 at 06:00 Ondansetron HCl (Zofran Tab) 4 mg Q6H PRN PO NAUSEA AND/OR VOMITING; Start 04/24 at 01:00 Aspirin (Ecotrin) 325 mg BID PO Last administered on 04/27/17 09:02; Admin Dose 325 MG; Start 04/24/17 at 09:00 Atorvastatin Calcium (Lipitor) 20 mg DAILY@21 PO Last administered on 20:34; Admin Dose 20 MG; Start 04/24/17 at 21:00 Cyclosporine (Restasis) 1 drop Q12 BOTH EYES Last administered on 04/27/17 09: 01; Admin Dose 1 DROP; Start 04/24/17 at 09:00 Docusate Sodium (Colace) 100 mg BID PRN PO CONSTIPATION; Start 04/24/17 at 01:00 Enoxaparin Sodium (Lovenox) 40 mg DAILY SC Last administered on 04/27/17 09:00 ; Admin Dose 40 MG; Start 04/24/17 at 09:00 Ergocalciferol (Drisdol) 50,000 unit [place]era@09 PO Last administered on 04/25/17 09: 05; Admin Dose 50,000 UNIT; Start 04/25/17 at 09:00 Acetaminophen (Tylenol Tab) 650 mg Q4H PRN PO PAIN; Start 04/24/17 at 04:00 Bisacodyl (Dulcolax Supp) 10 mg DAILY PRN [place] CONSTIPATION; Start 04/24/17 at 04: 00 Magnesium Hydroxide (Milk Of Mag) 30 ml BID PRN PO CONSTIPATION; Start 04/24/17 at 04:00 Lactulose (Enulose) 20 gm DAILY PRN PO CONSTIPATION; Start 04/24/17 at 04:00 Ferrous Sulfate (Ferrous Sulfate (Ec)) 325 mg BID PO Last administered on 09:02; Admin Dose 325 MG; Start 04/26/17 at 21:00 FARIDA MOREJON MD Apr 27, 2017 12:16
--- NOTE | 2017-04-27 13:09 | CONS ---
Date/Time of Note Date/Time of Note DATE: 04/27/17 TIME: 13:08 Consult Date/Type/Reason Admit Date/Time Apr 23, 2017 at 21:16 Type of Consultation: cardiology Ordering Provider: SHANNAN CAN Subjective In good spirits Objective Contact-guard assist ambulation Vital Signs Date Time Temp Pulse Resp B/P Pulse Ox O2 Delivery O2 Flow Rate FiO2 04/27/17 08:00 98.0 72 18 115/52 96 04/25/17 08:30 Room Air Intake and Output 04/26/17 04/26/17 04/27/17 15:00 23:00 07:00 Intake Total 980 ml 500 ml Output Total 1100 ml Balance 980 ml -600 ml Results/Medications Result Diagram: 04/27/1715 04/27/1715 Results 24 hrs Laboratory Tests Test 04/27/17 06:15 White Blood Count 10.6 Red Blood Count 2.61 L Hemoglobin 8.3 L Hematocrit 25.2 L Mean Corpuscular Volume 96.6 Mean Corpuscular Hemoglobin 31.8 Mean Corpuscular Hemoglobin Concent 32.9 Red Cell Distribution Width 16.8 H Platelet Count 567 H Mean Platelet Volume 10.9 H Neutrophils % 67.7 Lymphocytes % 17.5 Monocytes % 8.9 Eosinophils % 2.8 Basophils % 0.6 Nucleated Red Blood Cells % 0.3 H Neutrophils # 7.1 Lymphocytes # 1.9 Monocytes # 0.9 Eosinophils # 0.3 Basophils # 0.1 Nucleated Red Blood Cells # 0.0 Sodium Level 134 L Potassium Level 3.6 Chloride Level 102 Carbon Dioxide Level 30 Anion Gap 6 L Blood Urea Nitrogen 11 Creatinine 0.58 Glucose Level 85 Calcium Level 7.9 L Medications Current Medications Polyethylene Glycol (Miralax) 8.5 gm DAILY PO Last administered on 04/24/17 08: 26; Admin Dose 8.5 GM; Start 04/24/17 at 09:00 Tramadol HCl (Ultram) 50 mg Q8H PRN PO PAIN; Start 04/24/17 at 01:00 Risedronate (Actonel) 35 mg Fr@0705 PO ; Start 04/30/17 at 07:05 Acetaminophen/ Hydrocodone Bitart ([place] (5/325)) 1 tab Q6H PRN PO PAIN Last administered on 04/27/17 09:22; Admin Dose 1 TAB; Start 04/24/17 at 01:00 Metoprolol Tartrate (Lopressor) 12.5 mg DAILY PO Last administered on 09:01; Admin Dose 12.5 MG; Start 04/24/17 at 09:00 Pantoprazole (Protonix Tab) 40 mg DAILY@06 PO Last administered on 04/27/17 06 :31; Admin Dose 40 MG; Start 04/24/17 at 06:00 Ondansetron HCl (Zofran Tab) 4 mg Q6H PRN PO NAUSEA AND/OR VOMITING; Start 04/24 at 01:00 Aspirin (Ecotrin) 325 mg BID PO Last administered on 04/27/17 09:02; Admin Dose 325 MG; Start 04/24/17 at 09:00 Atorvastatin Calcium (Lipitor) 20 mg DAILY@21 PO Last administered on 20:34; Admin Dose 20 MG; Start 04/24/17 at 21:00 Cyclosporine (Restasis) 1 drop Q12 BOTH EYES Last administered on 04/27/17 09: 01; Admin Dose 1 DROP; Start 04/24/17 at 09:00 Docusate Sodium (Colace) 100 mg BID PRN PO CONSTIPATION; Start 04/24/17 at 01:00 Enoxaparin Sodium (Lovenox) 40 mg DAILY SC Last administered on 04/27/17 09:00 ; Admin Dose 40 MG; Start 04/24/17 at 09:00 Ergocalciferol (Drisdol) 50,000 unit [place]@09 PO Last administered on 04/25/17 09: 05; Admin Dose 50,000 UNIT; Start 04/25/17 at 09:00 Acetaminophen (Tylenol Tab) 650 mg Q4H PRN PO PAIN; Start 04/24/17 at 04:00 Bisacodyl (Dulcolax Supp) 10 mg DAILY PRN [place] CONSTIPATION; Start 04/24/17 at 04: 00 Magnesium Hydroxide (Milk Of Mag) 30 ml BID PRN PO CONSTIPATION; Start 04/24/17 at 04:00 Lactulose (Enulose) 20 gm DAILY PRN PO CONSTIPATION; Start 04/24/17 at 04:00 Ferrous Sulfate (Ferrous Sulfate (Ec)) 325 mg BID PO Last administered on 09:02; Admin Dose 325 MG; Start 04/26/17 at 21:00 Assessment/Plan Additional Assessment/Plan Rehabilitation - left displaced femoral neck fracture, s/p hemiarthroplasty Progressing well with current treatment plan Acute Pain syndrome-improved Hypertension GERD Dyslipidemia Osteoporosis JUAN TRONCOSO MD Apr 27, 2017 13:09
--- NOTE | 2017-04-27 15:25 | CONS ---
Date/Time of Note Date/Time of Note DATE: 04/27/17 TIME: 15:24 Consult Date/Type/Reason Admit Date/Time Apr 23, 2017 at 21:16 Initial Consult Date Type of Consultation: Internal medicine Ordering Provider: SHANNAN CAN Subjective Patient remains stable continues with physical therapy Objective Vital Signs Date Time Temp Pulse Resp B/P Pulse Ox O2 Delivery O2 Flow Rate FiO2 04/27/17 08:00 98.0 72 18 115/52 96 04/25/17 08:30 Room Air Intake and Output 04/26/17 04/26/17 04/27/17 15:00 23:00 07:00 Intake Total 980 ml 500 ml Output Total 1100 ml Balance 980 ml -600 ml Exam GENERAL: Well-nourished well-developed [place] lady comfortable at rest VITAL SIGNS: per chart NECK: Supple. No JVD or lymphadenopathy. CARDIAC EXAM: S1, S2. No added sounds or murmurs. CHEST: clear bilaterally, No added sounds, rales or wheezes ABDOMEN: Soft, nontender. No guarding or rebound. EXTREMITIES: No cyanosis, clubbing or edema. NEUROLOGIC: Generalized weakness. No focal deficits. Results/Medications Result Diagram: 04/27/1715 04/27/17 0615 Results 24 hrs Laboratory Tests Test 04/27/17 06:15 White Blood Count 10.6 Red Blood Count 2.61 L Hemoglobin 8.3 L Hematocrit 25.2 L Mean Corpuscular Volume 96.6 Mean Corpuscular Hemoglobin 31.8 Mean Corpuscular Hemoglobin Concent 32.9 Red Cell Distribution Width 16.8 H Platelet Count 567 H Mean Platelet Volume 10.9 H Neutrophils % 67.7 Lymphocytes % 17.5 Monocytes % 8.9 Eosinophils % 2.8 Basophils % 0.6 Nucleated Red Blood Cells % 0.3 H Neutrophils # 7.1 Lymphocytes # 1.9 Monocytes # 0.9 Eosinophils # 0.3 Basophils # 0.1 Nucleated Red Blood Cells # 0.0 Sodium Level 134 L Potassium Level 3.6 Chloride Level 102 Carbon Dioxide Level 30 Anion Gap 6 L Blood Urea Nitrogen 11 Creatinine 0.58 Glucose Level 85 Calcium Level 7.9 L Medications Current Medications Polyethylene Glycol (Miralax) 8.5 gm DAILY PO Last administered on 04/24/17t 08: 26; Admin Dose 8.5 GM; Start 04/24/17 at 09:00 Tramadol HCl (Ultram) 50 mg Q8H PRN PO PAIN; Start 04/24/17 at 01:00 Risedronate (Actonel) 35 mg Fr@0705 PO ; Start 04/30/17 at 07:05 Acetaminophen/ Hydrocodone Bitart ([place] (5/325)) 1 tab Q6H PRN PO PAIN Last administered on 04/27/17 09:22; Admin Dose 1 TAB; Start 04/24/17 at 01:00 Metoprolol Tartrate (Lopressor) 12.5 mg DAILY PO Last administered on 09:01; Admin Dose 12.5 MG; Start 04/24/17 at 09:00 Pantoprazole (Protonix Tab) 40 mg DAILY@06 PO Last administered on 04/27/17 06 :31; Admin Dose 40 MG; Start 04/24/17 at 06:00 Ondansetron HCl (Zofran Tab) 4 mg Q6H PRN PO NAUSEA AND/OR VOMITING; Start 04/24 at 01:00 Aspirin (Ecotrin) 325 mg BID PO Last administered on 04/27/17 09:02; Admin Dose 325 MG; Start 04/24/17 at 09:00 Atorvastatin Calcium (Lipitor) 20 mg DAILY@21 PO Last administered on 20:34; Admin Dose 20 MG; Start 04/24/17 at 21:00 Cyclosporine (Restasis) 1 drop Q12 BOTH EYES Last administered on 04/27/17 09: 01; Admin Dose 1 DROP; Start 04/24/17 at 09:00 Docusate Sodium (Colace) 100 mg BID PRN PO CONSTIPATION; Start 04/24/17 at 01:00 Enoxaparin Sodium (Lovenox) 40 mg DAILY SC Last administered on 04/27/17 09:00 ; Admin Dose 40 MG; Start 04/24/17 at 09:00 Ergocalciferol (Drisdol) 50,000 unit Ribera@09 PO Last administered on 04/25/17 09: 05; Admin Dose 50,000 UNIT; Start 04/25/17 at 09:00 Acetaminophen (Tylenol Tab) 650 mg Q4H PRN PO PAIN; Start 04/24/17 at 04:00 Bisacodyl (Dulcolax Supp) [address] [place] CONSTIPATION; Start 04/24/17 at 04: 00 Magnesium Hydroxide (Milk Of Mag) 30 ml BID PRN PO CONSTIPATION; Start 04/24/17 at 04:00 Lactulose (Enulose) 20 gm DAILY PRN PO CONSTIPATION; Start 04/24/17 at 04:00 Ferrous Sulfate (Ferrous Sulfate (Ec)) 325 mg BID PO Last administered on t 09:02; Admin Dose 325 MG; Start 04/26/17 at 21:00 Assessment/Plan Chief Complaint/Hosp Course IMP: 1. s/p ORIF for hip Fx 2. HTN heart disease 3. Osteoporosis 4. Dyslipidemia 5. GERD 6. Anemia postop. RECS: 1. PT/OT 2. Appreciate Cards input 3. Anti-HTN therapy 4. Replete K+ 5. Bowel regimen 6. Trial of ferrous sulfate monitor H&H Problems: MARIA E FRIEDMAN MD, [facility] Apr 27, 2017 15:24
[2017-04-27 20:00] VITALS: BP 116/56; RESP 18
[2017-04-27] MEDS: ATORVASTATIN 20 MG TAB PO SCH (20:30)
[2017-04-28] MEDS: PANTOPRAZOLE (EC) 40 MG TAB PO SCH (06:12)
[2017-04-28 07:41] VITALS: BP 109/51; RESP 18
[2017-04-28] MEDS: METOPROLOL 25 MG TAB PO SCH (09:00)
[2017-04-28] MEDS: POLYETHYLENE GLYCOL 17 GM PACKET PO SCH (09:00)
[2017-04-28] MEDS: ASPIRIN (EC) 325 MG TAB PO SCH ×2 (09:31→21:38)
[2017-04-28] MEDS: FERROUS SULFATE (EC) 325 MG TAB PO SCH ×2 (09:32→21:38)
[2017-04-28] MEDS: ENOXAPARIN 40 MG/0.4 ML SYG SC SCH (09:32)
[2017-04-28] MEDS: CYCLOSPORINE 0.05% OPH DROPERETTE BOTH EYES SCH ×2 (09:32→21:38)
[2017-04-28] MEDS: HYDROCODONE/APAP (5/325) TAB PO PRN ×2 (09:33→15:01)
--- NOTE | 2017-04-28 11:55 | CONS ---
Date/Time of Note Date/Time of Note DATE: 04/28/17 TIME: 11:55 Consult Date/Type/Reason Admit Date/Time Apr 23, 2017 at 21:16 Type of Consultation: Internal medicine Ordering Provider: SHANNAN CAN Objective sba ambulation 200 feet Vital Signs Date Time Temp Pulse Resp B/P Pulse Ox O2 Delivery O2 Flow Rate FiO2 04/28/17 07:41 98.2 70 18 109/51 96 04/25/17 08:30 Room Air Intake and Output 04/27/17 04/27/17 04/28/17 15:00 23:00 07:00 Intake Total 1200 ml 1320 ml 360 ml Output Total 200 ml 550 ml 550 ml Balance 1000 ml 770 ml -190 ml Results/Medications Result Diagram: 04/27/1761404/27/17614 Medications Current Medications Polyethylene Glycol (Miralax) 8.5 gm DAILY PO Last administered on 04/24/17 08: 26; Admin Dose 8.5 GM; Start 04/24/17 at 09:00 Tramadol HCl (Ultram) 50 mg Q8H PRN PO PAIN; Start 04/24/17 at 01:00 Risedronate (Actonel) 35 mg Fr@0705 PO ; Start 04/30/17 at 07:05 Acetaminophen/ Hydrocodone Bitart ([place] (5/325)) 1 tab Q6H PRN PO PAIN Last administered on 04/28/17 09:33; Admin Dose 1 TAB; Start 04/24/17 at 01:00 Metoprolol Tartrate (Lopressor) 12.5 mg DAILY PO Last administered on 09:01; Admin Dose 12.5 MG; Start 04/24/17 at 09:00 Pantoprazole (Protonix Tab) 40 mg DAILY@06 PO Last administered on 04/28/17 06 :12; Admin Dose 40 MG; Start 04/24/17 at 06:00 Ondansetron HCl (Zofran Tab) 4 mg Q6H PRN PO NAUSEA AND/OR VOMITING; Start 04/24 at 01:00 Aspirin (Ecotrin) 325 mg BID PO Last administered on 04/28/17 09:31; Admin Dose 325 MG; Start 04/24/17 at 09:00 Atorvastatin Calcium (Lipitor) 20 mg DAILY@21 PO Last administered on 20:30; Admin Dose 20 MG; Start 04/24/17 at 21:00 Cyclosporine (Restasis) 1 drop Q12 BOTH EYES Last administered on 04/28/17 09: 32; Admin Dose 1 DROP; Start 04/24/17 at 09:00 Docusate Sodium (Colace) 100 mg BID PRN PO CONSTIPATION; Start 04/24/17 at 01:00 Enoxaparin Sodium (Lovenox) 40 mg DAILY SC Last administered on 04/28/17 09:32 ; Admin Dose 40 MG; Start 04/24/17 at 09:00 Ergocalciferol (Drisdol) 50,000 unit [place]@09 PO Last administered on 04/25/17 09: 05; Admin Dose 50,000 UNIT; Start 04/25/17 at 09:00 Acetaminophen (Tylenol Tab) 650 mg Q4H PRN PO PAIN; Start 04/24/17 at 04:00 Bisacodyl (Dulcolax Supp) 10 mg DAILY PRN [place] CONSTIPATION; Start 04/24/17 at 04: 00 Magnesium Hydroxide (Milk Of Mag) 30 ml BID PRN PO CONSTIPATION; Start 04/24/17 at 04:00 Lactulose (Enulose) 20 gm DAILY PRN PO CONSTIPATION; Start 04/24/17 at 04:00 Ferrous Sulfate (Ferrous Sulfate (Ec)) 325 mg BID PO Last administered on 09:32; Admin Dose 325 MG; Start 04/26/17 at 21:00 JUAN TRONCOSO MD Apr 28, 2017 11:55
--- NOTE | 2017-04-28 15:36 | CONS ---
Date/Time of Note Date/Time of Note DATE: 04/28/17 TIME: 15:34 Consult Date/Type/Reason Admit Date/Time Apr 23, 2017 at 21:16 Type of Consultation: Internal medicine Ordering Provider: SHANNAN CAN Subjective Patient comfortable this morning continues physical therapy Objective Vital Signs Date Time Temp Pulse Resp B/P Pulse Ox O2 Delivery O2 Flow Rate FiO2 04/28/17 07:41 98.2 70 18 109/51 96 04/25/17 08:30 Room Air Intake and Output 04/27/17 04/27/17 04/28/17 14:59 22:59 06:59 Intake Total 1200 ml 1320 ml 360 ml Output Total 200 ml 550 ml 550 ml Balance 1000 ml 770 ml -190 ml Exam GENERAL: Well-nourished well-developed [place] lady comfortable at rest VITAL SIGNS: per chart NECK: Supple. No JVD or lymphadenopathy. CARDIAC EXAM: S1, S2. No added sounds or murmurs. CHEST: clear bilaterally, No added sounds, rales or wheezes ABDOMEN: Soft, nontender. No guarding or rebound. EXTREMITIES: No cyanosis, clubbing or edema. NEUROLOGIC: Generalized weakness. No focal deficits. Results/Medications Result Diagram: 04/27/1761404/27/17614 Medications Current Medications Polyethylene Glycol (Miralax) 8.5 gm DAILY PO Last administered on 04/24/17 08: 26; Admin Dose 8.5 GM; Start 04/24/17 at 09:00 Tramadol HCl (Ultram) 50 mg Q8H PRN PO PAIN; Start 04/24/17 at 01:00 Risedronate (Actonel) 35 mg Fr@0705 PO ; Start 04/30/17 at 07:05 Acetaminophen/ Hydrocodone Bitart ([place] (5/325)) 1 tab Q6H PRN PO PAIN Last administered on 04/28/17 15:01; Admin Dose 1 TAB; Start 04/24/17 at 01:00 Metoprolol Tartrate (Lopressor) 12.5 mg DAILY PO Last administered on 09:01; Admin Dose 12.5 MG; Start 04/24/17 at 09:00 Pantoprazole (Protonix Tab) 40 mg DAILY@06 PO Last administered on 04/28/17 06 :12; Admin Dose 40 MG; Start 04/24/17 at 06:00 Ondansetron HCl (Zofran Tab) 4 mg Q6H PRN PO NAUSEA AND/OR VOMITING Last administered on 04/28/17 12:36; Admin Dose 4 MG; Start 04/24/17 at 01:00 Aspirin (Ecotrin) 325 mg BID PO Last administered on 04/28/17 09:31; Admin Dose 325 MG; Start 04/24/17 at 09:00 Atorvastatin Calcium (Lipitor) 20 mg DAILY@21 PO Last administered on 20:30; Admin Dose 20 MG; Start 04/24/17 at 21:00 Cyclosporine (Restasis) 1 drop Q12 BOTH EYES Last administered on 04/28/17 09: 32; Admin Dose 1 DROP; Start 04/24/17 at 09:00 Docusate Sodium (Colace) 100 mg BID PRN PO CONSTIPATION; Start 04/24/17 at 01:00 Enoxaparin Sodium (Lovenox) 40 mg DAILY SC Last administered on 04/28/17 09:32 ; Admin Dose 40 MG; Start 04/24/17 at 09:00 Ergocalciferol (Drisdol) 50,000 unit [place]@09 PO Last administered on 04/25/17 09: 05; Admin Dose 50,000 UNIT; Start 04/25/17 at 09:00 Acetaminophen (Tylenol Tab) 650 mg Q4H PRN PO PAIN; Start 04/24/17 at 04:00 Bisacodyl (Dulcolax Supp) 10 mg DAILY PRN [place] CONSTIPATION; Start 04/24/17 at 04: 00 Magnesium Hydroxide (Milk Of Mag) 30 ml BID PRN PO CONSTIPATION; Start 04/24/17 at 04:00 Lactulose (Enulose) 20 gm DAILY PRN PO CONSTIPATION; Start 04/24/17 at 04:00 Ferrous Sulfate (Ferrous Sulfate (Ec)) 325 mg BID PO Last administered on 09:32; Admin Dose 325 MG; Start 04/26/17 at 21:00 Assessment/Plan Chief Complaint/Hosp Course IMP: 1. s/p ORIF for hip Fx 2. HTN heart disease 3. Osteoporosis 4. Dyslipidemia 5. GERD 6. Anemia postop. 7. Status post UTI RECS: 1. PT/OT 2. Appreciate Cards input 3. Anti-HTN therapy 4. Replete K+ 5. Bowel regimen 6. Trial of ferrous sulfate monitor H&H Problems: MARIA E FRIEDMAN MD, [facility] Apr 28, 2017 15:36
--- NOTE | 2017-04-28 16:27 | CONS ---
Date/Time of Note Date/Time of Note DATE: 04/28/17 TIME: 16:25 Assessment/Plan Assessment/Plan Chief Complaint/Hosp Course IMP: 1.Post-op- s/p HIP ORIF 2.HTN - reasonable control 3. RBBB - likely chronic, negative troponins - Diast HF, chronic. 4 GERD - PPI to folllow 5. Pain - con't pain rx as needed 6. Diastolic dysfunction-reasonable volume status 7.Osteoporosis Recc: -Now transferred to inpatient rehab -Continue asa/statin -Continue low dose BB as tolerated only and follow labile BP closely which is currently reasonable -pain control -PT -Spot dose lasix as necessary and follow volume status closely Problems: Consultation Date/Type/Reason Admit Date/Time Apr 23, 2017 at 21:16 Initial Consult Date 04/24/17 Type of Consultation: cardiology Reason for Consultation pre-op Referring Provider: SHANNAN CAN Exam/Review of Systems Vital Signs Vitals Vital Signs Date Time Temp Pulse Resp B/P Pulse Ox O2 Delivery O2 Flow Rate FiO2 04/28/17 07:41 98.2 70 18 109/51 96 04/25/17 08:30 Room Air Intake and Output 04/27/17 04/27/17 04/28/17 15:00 23:00 07:00 Intake Total 1200 ml 1320 ml 360 ml Output Total 200 ml 550 ml 550 ml Balance 1000 ml 770 ml -190 ml Exam Review of Systems: CONSTITUTIONAL: No fevers, chills. PULMONARY: No sob CARDIOVASCULAR: No chest pain/palpitations GASTROINTESTINAL: No nausea/vomiting. GENITOURINARY: No hematuria/dysuria. MUSCULOSKELETAL: No myagias/arthalgias. PSYCHIATRIC: The patient denies depression. NEUROLOGIC: No weakness Constitutional: alert Psych: no complaints Head: normocephalic ENMT: mucosa pink and moist Neck: jvd (8 cm water), supple Respiratory: clear to auscultation Cardiovascular: regular rate and rhythm Gastrointestinal: non-tender, soft Musculoskeletal: muscle weakness (mild generalized) Extremities: edema (nonr) Neurological: other (No focal deficits) Results Result Diagram: 04/27/1761404/27/17614 Medications Medications Current Medications Polyethylene Glycol (Miralax) 8.5 gm DAILY PO Last administered on 04/24/17t 08: 26; Admin Dose 8.5 GM; Start 04/24/17 at 09:00 Tramadol HCl (Ultram) 50 mg Q8H PRN PO PAIN; Start 04/24/17 at 01:00 Risedronate (Actonel) 35 mg Fr@0705 PO ; Start 04/30/17 at 07:05 Acetaminophen/ Hydrocodone Bitart ([place] (5/325)) 1 tab Q6H PRN PO PAIN Last administered on 04/28/17 15:01; Admin Dose 1 TAB; Start 04/24/17 at 01:00 Metoprolol Tartrate (Lopressor) 12.5 mg DAILY PO Last administered on 09:01; Admin Dose 12.5 MG; Start 04/24/17 at 09:00 Pantoprazole (Protonix Tab) 40 mg DAILY@06 PO Last administered on 04/28/17 06 :12; Admin Dose 40 MG; Start 04/24/17 at 06:00 Ondansetron HCl (Zofran Tab) 4 mg Q6H PRN PO NAUSEA AND/OR VOMITING Last administered on 04/28/17 12:36; Admin Dose 4 MG; Start 04/24/17 at 01:00 Aspirin (Ecotrin) 325 mg BID PO Last administered on 04/28/17 09:31; Admin Dose 325 MG; Start 04/24/17 at 09:00 Atorvastatin Calcium (Lipitor) 20 mg DAILY@21 PO Last administered on 20:30; Admin Dose 20 MG; Start 04/24/17 at 21:00 Cyclosporine (Restasis) 1 drop Q12 BOTH EYES Last administered on 04/28/17 09: 32; Admin Dose 1 DROP; Start 04/24/17 at 09:00 Docusate Sodium (Colace) 100 mg BID PRN PO CONSTIPATION; Start 04/24/17 at 01:00 Enoxaparin Sodium (Lovenox) 40 mg DAILY SC Last administered on 04/28/17 09:32 ; Admin Dose 40 MG; Start 04/24/17 at 09:00 Ergocalciferol (Drisdol) 50,000 unit [place]@09 PO Last administered on 04/25/17 09: 05; Admin Dose 50,000 UNIT; Start 04/25/17 at 09:00 Acetaminophen (Tylenol Tab) 650 mg Q4H PRN PO PAIN; Start 04/24/17 at 04:00 Bisacodyl (Dulcolax Supp) 10 mg DAILY PRN [place] CONSTIPATION; Start 04/24/17 at 04: 00 Magnesium Hydroxide (Milk Of Mag) 30 ml BID PRN PO CONSTIPATION; Start 04/24/17 at 04:00 Lactulose (Enulose) 20 gm DAILY PRN PO CONSTIPATION; Start 04/24/17 at 04:00 Ferrous Sulfate (Ferrous Sulfate (Ec)) 325 mg BID PO Last administered on t 09:32; Admin Dose 325 MG; Start 04/26/17 at 21:00 RL CONTRERAS Apr 28, 2017 16:27
[2017-04-28 20:00] VITALS: BP 133/60; RESP 18
[2017-04-28] MEDS: ATORVASTATIN 20 MG TAB PO SCH (21:38)
[2017-04-28] MEDS: LEVOFLOXACIN 250 MG TAB PO SCH (21:38)
[2017-04-29] MEDS: LEVOFLOXACIN 250 MG TAB PO SCH (06:06)
[2017-04-29] MEDS: PANTOPRAZOLE (EC) 40 MG TAB PO SCH (06:06)
[2017-04-29 06:56] LABS: ADD SCAN DIFF NO
[2017-04-29 07:03] LABS: BASOPHIL # 0.1 10^3/ul (0.0-0.1); BASOPHILS % 0.8 % (0.0-2.0); EOSINOPHILS # 0.2 10^3/ul (0.0-0.5); EOSINOPHILS % 2.5 % (0.0-7.0); HEMATOCRIT 26.1 % (37.0-47.0); HEMOGLOBIN 8.4 g/dl (12.0-16.0); LYMPHOCYTES # 1.3 10^3/ul (0.8-2.9); LYMPHOCYTES % 14.3 % (15.0-51.0); MEAN CORPUSCULAR HEMOGLOBIN 31.1 pg (29.0-33.0); MEAN CORPUSCULAR HGB CONC 32.2 g/dl (32.0-37.0); MEAN CORPUSCULAR VOLUME 96.7 fl (82.0-101.0); MEAN PLATELET VOLUME 10.4 fl (7.4-10.4); MONOCYTE # 0.9 10^3/ul (0.3-0.9); MONOCYTES % 9.9 % (0.0-11.0); NEUTROPHIL # 6.5 10^3/ul (1.6-7.5); NEUTROPHILS % 70.6 % (39.0-77.0); NUCLEATED RED BLOOD CELLS% 0.2 /100WBC (0.0-0.0); PLATELET COUNT 517 10^3/UL (140-415); RED CELL DISTRIBUTION WIDTH 17.1 % (11.5-14.5); WHITE BLOOD COUNT 9.1 10^3/ul (4.8-10.8)
[2017-04-29 07:26] LABS: CALCIUM 8.1 mg/dl (8.4-10.2); CREATININE 0.58 mg/dl (0.44-1.00); MAGNESIUM 2.1 mg/dl (1.7-2.5); PHOSPHORUS 2.9 mg/dl (2.5-4.9)
[2017-04-29 07:30] VITALS: BP 128/60; RESP 18
[2017-04-29] MEDS: POLYETHYLENE GLYCOL 17 GM PACKET PO SCH (09:00)
[2017-04-29] MEDS: FERROUS SULFATE (EC) 325 MG TAB PO SCH (09:41)
[2017-04-29] MEDS: HYDROCODONE/APAP (5/325) TAB PO PRN (09:41)
[2017-04-29] MEDS: ASPIRIN (EC) 325 MG TAB PO SCH (09:41)
[2017-04-29] MEDS: METOPROLOL 25 MG TAB PO SCH (09:42)
[2017-04-29] MEDS: ENOXAPARIN 40 MG/0.4 ML SYG SC SCH (09:43)
[2017-04-29] MEDS: CYCLOSPORINE 0.05% OPH DROPERETTE BOTH EYES SCH (09:44)
[2017-04-30] MEDS ORDERED: RISEDRONATE 35 MG TAB PO SCH (07:05)
== END 2017-04-29 11:30 | disposition home health service (06) | DRG 561 ==
LOC: VRC 04-23 21:16
PROVIDERS: ADMIT Physical Medicine & Rehabilitation; ATTEND Internal Medicine Pulmonary Disease
DX: S72.092D Other fracture of head and neck of left femur, subsequent encounter for closed fracture with routine healing (principal); I45.19 Other right bundle-branch block; I10 Essential (primary) hypertension; D64.89 Other specified anemias; M81.0 Age-related osteoporosis without current pathological fracture; K21.9 Gastro-esophageal reflux disease without esophagitis; E78.5 Hyperlipidemia, unspecified; W19.XXXD Unspecified fall, subsequent encounter; Z87.81 Personal history of (healed) traumatic fracture; Z87.440 Personal history of urinary (tract) infections
CPT/HCPCS: 80048; 80053; 81001; 83735; 84100; 85025; 87075; 87081; 87086; 97110; 97116; 97150; 97162; 97167; 97530; 97535; J1650